=== PATIENT | male | born 1965 | race Caucasian/White ===

== ENCOUNTER 2016-10-30 15:36 | Outpatient (CLI) | payer MEDICAID ==
[2016-10-30] MEDS ORDERED: IOPAMIDOL-300 100 ML VIAL IVP ONE (17:30)
[2016-10-30] MEDS ORDERED: IOPAMIDOL-300 50 ML VIAL PO ONE (17:30)
== END 2016-10-30 15:37 | disposition home or self-care (01) ==
DX: K22.8 Other specified diseases of esophagus (principal); R63.4 Abnormal weight loss
CPT/HCPCS: 74177; Q9967

== ENCOUNTER 2016-12-02 09:36 | Day surgery (SDC) | payer MEDICAID ==
[2016-12-02] MEDS ORDERED: LACTATED RINGERS 1,000 ML IV ONE ×2 (09:54→11:30)
[2016-12-02] MEDS ORDERED: MIDAZOLAM 2 MG/2 ML VIAL IVP ONE (11:10)
[2016-12-02] MEDS ORDERED: fentaNYL 100 MCG/2 ML VIAL IVP ONE (11:10)
[2016-12-02] MEDS ORDERED: BENZOCAINE/TETRACAINE/BUTAMBEN SPRAY 56 GM TOP ONE (11:13)
[2016-12-02] MEDS ORDERED: LIDO GARGLE 30 ML BOTTLE PO ONE (11:13)
[2016-12-02 13:06] VITALS: BP 97/69
== END 2016-12-02 09:37 | disposition home or self-care (01) ==
LOC: SDS 09:36
PROVIDERS: ATTEND Surgery
PROC: 0D748ZZ Dilation of Esophagogastric Junction, Via Natural or Artificial Opening Endoscopic (ICD-10-PCS; 2016-12-02)
PROC: 0DB48ZX Excision of Esophagogastric Junction, Via Natural or Artificial Opening Endoscopic, Diagnostic (ICD-10-PCS; principal; 2016-12-02 10:45)
DX: R93.5 Abnormal findings on diagnostic imaging of other abdominal regions, including retroperitoneum (principal); K22.2 Esophageal obstruction; T18.128A Food in esophagus causing other injury, initial encounter; R13.10 Dysphagia, unspecified
CPT/HCPCS: 43239; 43249; 87081; A9270; J7120; 88305

== ENCOUNTER 2017-01-27 16:13 | Emergency (ER) | payer MEDICAID, OTHER ==
[2017-01-27] MEDS ORDERED: SODIUM CHLORIDE 0.9% 1,000 ML IV ONE ×2 (20:27→21:34)
[2017-01-27 20:55] LABS: BASOPHILS # (AUTO) 0.1 10^3/uL (0.0-0.1); BASOPHILS % (AUTO) 1.9 %; EOSINOPHILS # (AUTO) 0.3 10^3/uL (0.0-0.7); EOSINOPHILS % (AUTO) 3.5 %; HCT - HEMATOCRIT 40.3 % (42.0-52.0); HGB - HEMOGLOBIN 13.5 g/dL (14.0-18.0); LYMPHOCYTES # (AUTO) 2.6 10^3/uL (1.5-3.5); LYMPHOCYTES % (AUTO) 36.8 %; MEAN CORPUSCULAR HEMOGLOBIN 30.2 pg (27.0-31.0); MEAN CORPUSCULAR HGB CONC 33.5 g/dL (32.0-36.0); MEAN CORPUSCULAR VOLUME 90.2 fL (80.0-94.0); MEAN PLATELET VOLUME 7.7 fL (7.4-11.4); MONOCYTES # (AUTO) 0.6 10^3/uL (0.0-1.0); MONOCYTES % (AUTO) 7.8 %; NEUTROPHILS # (AUTO) 3.6 10^3/uL (1.5-6.6); NUCLEATED RED BLOOD CELLS AUTO 0.1 /100WBC; RED BLOOD COUNT 4.47 10^6/uL (4.70-6.10); RED CELL DISTRIBUTION WIDTH 12.9 % (12.0-15.0); UNCORRECTED WHITE BLOOD COUNT 7.2 x10^3/uL; WHITE BLOOD COUNT 7.2 x10^3/uL (4.8-10.8)
[2017-01-27 21:08] LABS: ALBUMIN/GLOBULIN RATIO 1.3 (1.0-2.2); BILIRUBIN,TOTAL 0.8 mg/dL (0.2-1.0); CALCIUM 9.1 mg/dL (8.5-10.3); CREATININE 0.7 mg/dL (0.6-1.2); POTASSIUM 3.2 mmol/L (3.5-5.0); TOTAL PROTEIN 7.2 g/dL (6.7-8.2)
--- NOTE | 2017-01-27 21:23 | ED Physician Documentation ---
History of Present Illness - Stated complaint Stated Complaint: LIGHT HEADED - Chief complaint Chief Complaint: Abd Pain - Additonal information Additional information: Patient is a 52-year-old man who presents with a complaint of nausea and weight loss for 1-1/2 yearsEvery time this patient eats he develops a full sensation in the upper epigastric area and then vomits. This is been going on for a long time more recently he has had MRI and EGD both of which were negative. He also describes having done what sounds like a study for achalasia which was also negative. He is under the care of a surgeon and is going to see a mold stacker in [place]. He feels like he is dehydrated and is hoping to get IV fluids tonight. He does not have any pain. There is no constipation diarrhea or lower urinary symptoms Review of systems: For pertinent positive and negatives in the review of systems please see history of present illness. Otherwise all other systems have been reviewed and are negative. Dragon disclaimer: Parts of this medical record were created using voice recognition technology. Because of the inherent limitations of this system occasional same sounding word substitutions do occur and persist despite proofreading. Please read the document for context. Review of Systems Ten Systems: 10 systems reviewed and negative Constitutional: denies: Fever, Chills, Myalgias Eyes: denies: Loss of vision Cardiac: denies: Chest pain / pressure, Palpitations Respiratory: denies: Dyspnea GI: reports: Nausea, Vomiting. denies: Abdominal Pain, Abdominal Swelling : denies: Dysuria, Frequency, Hesitancy, Unable to Void Skin: denies: Rash Musculoskeletal: denies: Neck pain, Back pain Neurologic: denies: Generalized weakness Endocrine: denies: Polydypsia, Polyuria, Polyphagia PD PAST MEDICAL HISTORY - Past Medical History Past Medical History: Yes Cardiovascular: None Respiratory: None Neuro: None Endocrine/Autoimmune: None GI: Other : None HEENT: None Psych: None Musculoskeletal: Other Other Past Medical History: trouble swallowing. chronic vomiting - Past Surgical History Past Surgical History: Yes General: Appendectomy, EGD Ortho: Other - Present Medications Home Medications: Ambulatory Orders Medication Instructions Recorded Confirmed Multivitamin [Multivitamins] 1 each PO DAILY 12/18/15 01/27/17 [place]-3 Fatty Acids [Fish Oil] 300 mg PO TID 12/18/15 01/27/17 - Allergies Allergies/Adverse Reactions: Allergies Allergy/AdvReac Type Severity Reaction Status Date / Time No Known Drug Allergies Allergy Verified 09/20/15 13:35 - Social History Does the pt smoke?: Yes Smoking Status: Current some day smoker Does the pt drink ETOH?: Yes Does the pt have substance abuse?: No Results - Vitals Vitals: Vital Signs - 24 hr 01/27/17 01/27/17 01/28/17 16:29 22:20 00:19 Temperature 36.8 C 36.4 C L Heart Rate 83 61 58 L Respiratory 18 16 16 Rate Blood Pressure 116/74 101/59 L 96/58 L O2 Saturation 97 98 98 Oxygen O2 Source Room air - Labs Labs: Laboratory Tests 01/27/17 01/27/17 01/27/17 20:45 20:45 21:18 WBC 7.2 RBC 4.47 L Hgb 13.5 L Hct 40.3 L MCV 90.2 MCH 30.2 MCHC 33.5 RDW 12.9 Plt Count 211 MPV 7.7 Neut # 3.6 Lymph # 2.6 Person # 0.6 Eos # 0.3 Baso # 0.1 Absolute Nucleated RBC 0.01 Nucleated RBCs 0.1 Sodium 139 Potassium 3.2 L Chloride 106 Carbon Dioxide 26 Anion Gap 7.0 BUN 36 H Creatinine 0.7 Estimated GFR (MDRD) 118 Glucose 180 H Calcium 9.1 Total Bilirubin 0.8 AST 22 ALT 18 Alkaline Phosphatase 61 Total Protein 7.2 Albumin 4.1 Globulin 3.1 Albumin/Globulin Ratio 1.3 Lipase 21 L Urine Color YELLOW Urine Clarity CLEAR Urine pH 6.0 Ur Specific [place] 1.025 Urine Protein NEGATIVE Urine Glucose (UA) NEGATIVE Urine Ketones TRACE Urine Occult Blood NEGATIVE Urine Nitrite NEGATIVE Urine Bilirubin NEGATIVE Urine Urobilinogen 0.2 (NORMAL) Ur Leukocyte Esterase NEGATIVE Ur Microscopic Review NOT INDICATED Urine Culture Comments NOT INDICATED PD MEDICAL DECISION MAKING - ED course ED course: Patient is a pleasant 52-year-old man who has had a long history of nausea and vomiting for a year and a half. He has had multiple studies done including a MRI of the abdomen and pelvis and a EGD done within a couple weeks ago. Apparently they have been unable to determine what the cause of these episodes are from. He says that when he eats or drinks he develops a full sensation in the upper abdomen and then has the need to vomit. He denies any pain, fever, any other abdominal complaints or diarrhea. He did say that he had a test for achalasia and he believes that this test was negative as well. On examination He is a little thin but does not look onto her emaciated. He does not look toxic or ill. His abdominal examination is completely unremarkable. He was given 2 L of normal saline here and labs are checked the only abnormality is slight elevation of the BUN at 30. He does have follow-up appointment with both his primary care physician, his surgeon and also follow-up evaluation with the mold stacker in [place]. At this point in time were unable to determine the cause of his ongoing nausea and vomiting episodes but he was temporized by hydration tonight and he is thankful for this. I asked him to watch his symptoms closely return if he again gets dehydrated otherwise follow- up with his physicians as previously planned. Disposition: To home Clinical impression: 1. Recurrent nausea and vomiting, etiology unknown 2. Mild dehydration with elevated BUN to creatinine ratio Departure - Departure Disposition: 01 Home, Self Care Clinical Impression: Dehydration Condition: Good Instructions: ED Dehydration Follow-Up: Deborah Purcell ARNP [Primary Care Provider] -
[2017-01-27 21:26] LABS: BILIRUBIN,URINE NEGATIVE (NEGATIVE)
[2017-01-27 21:32] LABS: UA CHARGE (STRIP ONLY) YES; UR CULTURE IF IND NOT INDICATED
[2017-01-28 00:20] VITALS: BP 96/58
== END 2017-01-28 00:37 | disposition home or self-care (01) ==
LOC: ED 16:13
DX: R11.2 Nausea with vomiting, unspecified (principal); E86.0 Dehydration; F17.200 Nicotine dependence, unspecified, uncomplicated
CPT/HCPCS: 36415; 80053; 81001; 81003; 83690; 85025; 87086; 96360; 96361; 99283

== ENCOUNTER 2017-09-09 09:01 | Outpatient (CLI) | payer MEDICAID, OTHER ==
[2017-09-09 13:28] LABS: BASOPHILS # (AUTO) 0.1 10^3/uL (0.0-0.1); BASOPHILS % (AUTO) 2.1 %; EOSINOPHILS # (AUTO) 0.4 10^3/uL (0.0-0.7); EOSINOPHILS % (AUTO) 7.1 %; HGB - HEMOGLOBIN 12.8 g/dL (14.0-18.0); LYMPHOCYTES # (AUTO) 1.6 10^3/uL (1.5-3.5); LYMPHOCYTES % (AUTO) 27.4 %; MEAN CORPUSCULAR HGB CONC 33.6 g/dL (32.0-36.0); MEAN CORPUSCULAR VOLUME 89.5 fL (80.0-94.0); MEAN PLATELET VOLUME 9.2 fL (7.4-11.4); MONOCYTES # (AUTO) 0.7 10^3/uL (0.0-1.0); MONOCYTES % (AUTO) 11.9 %; NEUTROPHILS % (AUTO) 51.5 %; PLT - PLATELET COUNT 217 10^3/uL (130-450); RED BLOOD COUNT 4.25 10^6/uL (4.70-6.10); RED CELL DISTRIBUTION WIDTH 13.4 % (12.0-15.0); WHITE BLOOD COUNT 5.9 x10^3/uL (4.8-10.8)
[2017-09-09 13:52] LABS: ALBUMIN 3.9 g/dL (3.2-5.5); ALBUMIN/GLOBULIN RATIO 1.1 (1.0-2.2); ALKALINE PHOSPHATASE 61 IU/L (42-121); ALT ALANINE AMINOTRANSFERASE 15 IU/L (10-60); AST ASPARTATE AMINOTRANSFERASE 20 IU/L (10-42); BILIRUBIN,TOTAL 0.4 mg/dL (0.2-1.0); BUN - BLOOD UREA NITROGEN 19 mg/dL (6-20); CALCIUM 9.5 mg/dL (8.5-10.3); CARBON DIOXIDE - CO2 30 mmol/L (21-32); CHLORIDE 101 mmol/L (101-111); CHOL/HDL RATIO 3.9 (<5.0); CHOLESTEROL 169 mg/dL; CREATININE 0.5 mg/dL (0.6-1.2); GFR - MDRD 175 (>89); GLUCOSE 73 mg/dL (70-100); HDL CHOLESTEROL 43 mg/dL; LDL CHOLESTEROL,CALCULATED 97 mg/dL; LDL/HDL RATIO 2.3 (<3.6); SODIUM 138 mmol/L (135-145); TOTAL PROTEIN 7.3 g/dL (6.7-8.2); VLDL CHOLESTEROL 29 mg/dL
== END 2017-09-09 09:02 ==
LOC: LAB.N 09:01
PROVIDERS: ATTEND Nurse Practitioner Gerontology
DX: E78.5 Hyperlipidemia, unspecified (principal); R73.9 Hyperglycemia, unspecified
CPT/HCPCS: 80053; 80061; 83721; 84443; 85025

== ENCOUNTER 2017-10-11 10:13 | Emergency (ER) | payer MEDICAID ==
--- NOTE | 2017-10-11 12:42 | ED Physician Documentation ---
PD HPI ABD PAIN - Stated complaint Stated Complaint: FEEDING TUBE PX - Chief complaint Chief Complaint: Abd Pain - History obtained from History obtained from: Patient - History of Present Illness Timing - onset: Other (52 yo male with G tube for esophageal dysmotility. He has a low profile G-tube with redness and pain for 10 days. Was placed 1 month ago at [facility]. He does TID bolus feedings. He also takes PO food ( minimal). He describes that his Gtube will get sucked in and then pop out with pain.) Review of Systems Constitutional: denies: Fever, Chills Cardiac: reports: Reviewed and negative Respiratory: reports: Reviewed and negative GI: reports: Nausea, Vomiting PD PAST MEDICAL HISTORY - Past Medical History Cardiovascular: None Respiratory: None Neuro: Other Endocrine/Autoimmune: None GI: Other : None HEENT: None Psych: None Musculoskeletal: Other Derm: None Other Past Medical History: Feels he has short term memory loss. His esophagus dosent work - Past Surgical History Past Surgical History: Yes General: Appendectomy, EGD Ortho: Other - Present Medications Home Medications: Ambulatory Orders Medication Instructions Recorded Confirmed Multivitamin [Multivitamins] 1 each PO DAILY 12/18/15 01/27/17 [place]-3 Fatty Acids [Fish Oil] 300 mg PO TID 12/18/15 01/27/17 - Allergies Allergies/Adverse Reactions: Allergies Allergy/AdvReac Type Severity Reaction Status Date / Time No Known Drug Allergies Allergy Verified 10/11/17 10:35 - Social History Does the pt smoke?: No Smoking Status: Former smoker Does the pt drink ETOH?: No Does the pt have substance abuse?: No - Immunizations Immunizations are current?: Yes - POLST Patient has POLST: No PD ED PE NORMAL - Vitals Vital signs reviewed: Yes - General General: Alert and oriented X 3, No acute distress - Abdomen Abdomen: Normal bowel sounds, Soft, Other (Abdomen is nontender with a well- healed appendectomy scar, he has a low-profile G-tube in the left upper quadrant that is quite flush with the skin and in fact inverts the skin a little bit. There is no sign of active infection or skin breakdown.) - Neuro Neuro: Alert and oriented X 3, Normal speech - Psych Psych: Normal affect Results - Vitals Vitals: Vital Signs - 24 hr 10/11/17 10/11/17 10:31 11:25 Temperature 37.2 C Heart Rate 89 67 Respiratory 16 16 Rate Blood Pressure 128/104 H 98/55 L O2 Saturation 97 94 Oxygen O2 Source Room air PD MEDICAL DECISION MAKING - ED course ED course: 52-year-old gentleman with esophageal dysmotility with a low-profile G-tube in place that is bothering him because of its short length and he has symptoms of it getting pulled in with gastric peristalsis and is bothering his skin because of it. After discussion of options, he opted for replacement of this with a normal G-tube which was done at the bedside without difficulty and gastric contents were returned. Departure - Departure Disposition: 01 Home, Self Care Clinical Impression: Pain from gastrostomy tube Condition: Good Record reviewed to determine appropriate education?: Yes Instructions: ED G Tube Replacement Comments: CALL YOUR SURGEON ON FRIDAY AND LET HIM KNOW THAT WE REPLACED YOUR GTUBE WITH A NORMAL VERSION AND RETURN FOR FURTHER PROBLEMS.
[2017-10-11 13:22] VITALS: BP 115/77
== END 2017-10-11 13:18 | disposition home or self-care (01) ==
LOC: ED 10:13
DX: K94.29 Other complications of gastrostomy (principal); R52 Pain, unspecified; Z87.891 Personal history of nicotine dependence
CPT/HCPCS: 43760; 99282; 99283

== ENCOUNTER 2018-01-21 06:00 | Emergency (ER) | payer MEDICAID ==
--- NOTE | 2018-01-21 07:14 | XRAY Report ---
Procedure Date: 01/21/2018 Accession Number: [id number] / [id number] Procedure: XR - Hip w/Pelvis 2-3V RT CPT Code: FULL RESULT: EXAM: RIGHT HIP AND PELVIS RADIOGRAPHY EXAM DATE: 01/21/2018 07:04 AM. HISTORY: Hip pain. COMPARISONS: None. TECHNIQUE: 1 view of the pelvis and 1 view of the hip. FINDINGS: Bones: No acute fracture. Joints: No dislocation. Mild degenerative change. Soft Tissues: Suture material projecting over the upper right pelvis. IMPRESSION: No acute osseous abnormality. RADIA
--- NOTE | 2018-01-21 07:20 | ED Physician Documentation ---
PD HPI LOWER EXT INJURY - Stated complaint Stated Complaint: RT UPPER LEG PAIN - Chief complaint Chief Complaint: Ext Problem - History obtained from History obtained from: Patient - History of Present Illness PD HPI LOW EXT INJURY LOCATION: Right, Hip, Thigh Type of injury: Fall Where injury occurred: Home Timing - onset: How many days ago (2) Timing - duration: Days (2) Timing - details: Abrupt onset, Still present Improved by: Rest, Immobilization Worsened by: Moving, Palpating Associated symptoms: No: Weakness, Numbness, Tingling, Swelling Contributing factors: Prior ortho surgery. No: Anticoagulated Similar symptoms before: Has not had sx before Recently seen: Clinic - Additional information Additional information: 52-year-old male with history of esophageal dysmotility was walking on his deck 2 nights ago when he fell through the deck straddling to [place] and landing against the lateral aspect of his right upper thigh. He has pain in that area that is persisted for the past 2 days especially if he tries to flex his hip. He has been into see his doctor about pain in his right hip that started about 3 weeks ago unrelated to this injury. Review of Systems Constitutional: denies: Fever Eyes: denies: Decreased vision Ears: denies: Ear pain Nose: denies: Congestion Throat: denies: Sore throat Cardiac: denies: Chest pain / pressure, Palpitations Respiratory: denies: Dyspnea, Cough GI: reports: Vomiting (regularly vomits after feeding through G-tube with bile) . denies: Abdominal Pain : denies: Dysuria Skin: denies: Rash Musculoskeletal: reports: Extremity pain, Joint pain. denies: Neck pain, Back pain, Extremity swelling, Joint swelling Neurologic: denies: Generalized weakness, Focal weakness, Numbness PD PAST MEDICAL HISTORY - Past Medical History Cardiovascular: None Respiratory: None Endocrine/Autoimmune: None GI: Other : None HEENT: None Psych: None Musculoskeletal: Other Derm: None - Past Surgical History Past Surgical History: Yes General: Appendectomy, EGD Ortho: Other - Present Medications Home Medications: Ambulatory Orders Medication Instructions Recorded Confirmed Multivitamin [Multivitamins] 1 each PO DAILY 12/18/15 01/27/17 [place]-3 Fatty Acids [Fish Oil] 300 mg PO TID 12/18/15 01/27/17 Oxycodone HCl 5 ml PO Q6H PRN #50 ml 10/11/17 - Allergies Allergies/Adverse Reactions: Allergies Allergy/AdvReac Type Severity Reaction Status Date / Time No Known Drug Allergies Allergy Verified 01/21/18 06:12 - Social History Does the pt smoke?: No Smoking Status: Former smoker Does the pt drink ETOH?: No Does the pt have substance abuse?: No - Immunizations Immunizations are current?: Yes - POLST Patient has POLST: No PD ED PE NORMAL - Vitals Vital signs reviewed: Yes (normal ) - General General: Alert and oriented X 3, No acute distress, Well developed/nourished - HEENT HEENT: Atraumatic, PERRL, EOMI - Respiratory Respiratory: No respiratory distress - Derm Derm: Normal color, Warm and dry, No rash - Extremities Extremities: No deformity, No edema, Other (There is point tenderness to the mid thigh laterally where the patient fell. The knee is not involved. There is no specific tenderness to the trochanter. ) - Neuro Neuro: Alert and oriented X 3, hand tool filer 2-12 intact, No motor deficit, No sensory deficit, Normal speech Eye Opening: Spontaneous Motor: Obeys Commands Verbal: Oriented GCS Score: 15 - Psych Psych: Normal mood, Normal affect Results - Vitals Vitals: Vital Signs - 24 hr 01/21/18 06:09 Temperature 36.6 C Heart Rate 76 Respiratory 17 Rate Blood Pressure 100/74 O2 Saturation 98 Oxygen O2 Source Room air - Rads (name of study) right hip Radiology: Prelim report reviewed (Impression: No acute osseous abnormality. ) , EMP read indepedently (hardware from prior fracture repair is present in the lower portion of the film), See rad report PD MEDICAL DECISION MAKING - ED course Complexity details: reviewed old records, reviewed results, re-evaluated patient , considered differential, d/w patient ED course: 52-year-old male with prior orthopedic injury to the right mid femur has fallen through a deck striking the side of his right femur over the area of his prior injury against a [place]. He has pain specifically to that area and specifically if he tries to flex his hip. He is able to walk and bear weight without much specific pain. X-rays demonstrate no evidence of fracture they do them demonstrate the presence of prior fracture repair over the area the patient is experiencing his pain. He is not interested in narcotic pain reliever as he does all the driving in his family. He did get extra strength Tylenol from his physician for using his G-tube. - Sepsis Event Vital Signs: Vital Signs - 24 hr 01/21/18 06:09 Temperature 36.6 C Heart Rate 76 Respiratory 17 Rate Blood Pressure 100/74 O2 Saturation 98 Oxygen O2 Source Room air Departure - Departure Disposition: 01 Home, Self Care Clinical Impression: Contusion of right thigh Qualifiers: Encounter type: initial encounter Qualified Code(s): S70.11XA - Contusion of right thigh, initial encounter Condition: Stable Instructions: ED Contusion Lower Ext Follow-Up: Deborah Purcell ARNP [Primary Care Provider] -
[2018-01-21] MEDS ORDERED: KETOROLAC 60 MG/2 ML VIAL IM STA (07:31)
--- NOTE | 2018-01-21 08:27 | XRAY Report ---
Procedure Date: 01/21/2018 Accession Number: [id number] / [id number] Procedure: XR - Femur 2V RT CPT Code: FULL RESULT: EXAM: RIGHT FEMUR RADIOGRAPHY EXAM DATE: 01/21/2018 08:06 AM. CLINICAL HISTORY: Mid thigh contusion/prior fx. COMPARISON: None. TECHNIQUE: 2 views. FINDINGS: Bones: No acute fracture. Healed distal third right femur shaft fracture. Portions of fixation screws are seen traversing the distal right femur at the site of fracture. Mild apical angulation medially and posteriorly. No bony erosions. Joints: Normal alignment. No dislocation. Degenerative changes of the right hip joint and right knee. Soft Tissues: Soft tissue edema. IMPRESSION: 1. No acute osseous abnormalities. 2. Healed distal third right femur fracture. RADIA
[2018-01-21 08:41] VITALS: BP 101/68
== END 2018-01-21 08:41 | disposition home or self-care (01) ==
LOC: ED 06:00
DX: S70.11XA Contusion of right thigh, initial encounter (principal); W19.XXXA Unspecified fall, initial encounter; Y93.01 Activity, walking, marching and hiking; Y92.007 Garden or yard of unspecified non-institutional (private) residence as the place of occurrence of the external cause; Z87.891 Personal history of nicotine dependence; Z93.1 Gastrostomy status
CPT/HCPCS: 96372; 99283

== ENCOUNTER 2018-02-04 02:13 | Inpatient (IN) | payer MEDICAID ==
[2018-02-04] MEDS ORDERED: SODIUM CHLORIDE 0.9% 1,000 ML IV ONE ×4 (02:38→12:28)
[2018-02-04 02:46] LABS: BASOPHILS # (AUTO) 0.1 10^3/uL (0.0-0.1); BASOPHILS % (AUTO) 0.8 %; EOSINOPHILS # (AUTO) 0.2 10^3/uL (0.0-0.7); EOSINOPHILS % (AUTO) 2.3 %; LYMPHOCYTES # (AUTO) 2.1 10^3/uL (1.5-3.5); LYMPHOCYTES % (AUTO) 19.8 %; MEAN CORPUSCULAR HEMOGLOBIN 31.5 pg (27.0-31.0); MEAN CORPUSCULAR HGB CONC 33.9 g/dL (32.0-36.0); MEAN CORPUSCULAR VOLUME 93.1 fL (80.0-94.0); MEAN PLATELET VOLUME 8.2 fL (7.4-11.4); MONOCYTES # (AUTO) 0.7 10^3/uL (0.0-1.0); MONOCYTES % (AUTO) 6.7 %; NEUTROPHILS # (AUTO) 7.4 10^3/uL (1.5-6.6); NEUTROPHILS % (AUTO) 70.4 %; PLT - PLATELET COUNT 263 10^3/uL (130-450); RED BLOOD COUNT 3.18 10^6/uL (4.70-6.10); RED CELL DISTRIBUTION WIDTH 13.4 % (12.0-15.0); WHITE BLOOD COUNT 10.5 x10^3/uL (4.8-10.8)
--- NOTE | 2018-02-04 02:46 | ED Physician Documentation ---
PD HPI GI BLEED - Stated complaint Stated Complaint: RECTAL BLEEDING - Chief complaint Chief Complaint: Abd Pain - History obtained from History obtained from: Patient - History of Present Illness Timing - onset: How many days ago (3) Timing - duration: Days (3) Timing - details: Gradual onset, Still present Associated symptoms: BRBPR, Black/tarry stool, Abdominal pain Contributing factors: NSAID use Similar symptoms before: Has not had sx before Recently seen: Emergency Dept - Additional information Additional information: 53-year-old male with a history of esophageal sphincter dysfunction has a G- tube in place over the past year and over the past 3 days he began to not feel well and then he noted some black discharge around his G-tube. He did take some ibuprofen for the discomfort he was having and early this morning he did not feel well felt lightheaded and dizzy as he has intermittently for the past several days and he got up to go to the bathroom and had a syncopal episode. He was able to get himself into the bathroom whereupon he had plugs of stool surrounded by blood that was old followed by clots and old blood. He did have some bright red blood as well. Review of Systems Constitutional: denies: Fever Eyes: denies: Decreased vision Ears: denies: Ear pain Nose: denies: Rhinorrhea / runny nose, Congestion Throat: denies: Sore throat Cardiac: denies: Chest pain / pressure, Palpitations Respiratory: denies: Dyspnea, Cough GI: reports: Abdominal Pain, Nausea, Bloody / black stool : denies: Dysuria, Frequency Skin: denies: Rash Musculoskeletal: denies: Neck pain, Back pain, Extremity pain Neurologic: reports: Generalized weakness, Near syncope, Syncope. denies: Focal weakness, Numbness PD PAST MEDICAL HISTORY - Past Medical History Past Medical History: Yes Cardiovascular: None Respiratory: None Endocrine/Autoimmune: None GI: Other : None HEENT: None Psych: None Musculoskeletal: Other Derm: None Other Past Medical History: "Esophagus not working" - Past Surgical History Past Surgical History: Yes General: Appendectomy, EGD Ortho: Other - Present Medications Home Medications: Ambulatory Orders Medication Instructions Recorded Confirmed Ferrous Sulfate 5 ml PEG DAILY 02/04/18 02/04/18 [place] 16 oz PEG DAILY 02/04/18 - Allergies Allergies/Adverse Reactions: Allergies Allergy/AdvReac Type Severity Reaction Status Date / Time No Known Drug Allergies Allergy Verified 02/04/18 02:35 - Social History Does the pt smoke?: No Smoking Status: Never smoker Does the pt drink ETOH?: No Does the pt have substance abuse?: No - Immunizations Immunizations are current?: Yes - POLST Patient has POLST: No PD ED PE NORMAL - Vitals Vital signs reviewed: Yes (hypotensive ) - General General: Alert and oriented X 3, No acute distress, Well developed/nourished - HEENT HEENT: Atraumatic, PERRL, EOMI - Neck Neck: Supple, no meningeal sign - Cardiac Cardiac: RRR, No murmur - Respiratory Respiratory: No respiratory distress, Clear bilaterally - Abdomen Abdomen: Soft, Non tender, Other (There is a G-tube in place and no drainage at this time. ) - Back Back: No CVA TTP, No spinal TTP - Derm Derm: Normal color, Warm and dry, No rash - Extremities Extremities: No deformity, No edema - Neuro Neuro: Alert and oriented X 3, die holder 2-12 intact, No motor deficit, No sensory deficit, Normal speech Eye Opening: Spontaneous Motor: Obeys Commands Verbal: Oriented GCS Score: 15 - Psych Psych: Normal mood, Normal affect Results - Vitals Vitals: Vital Signs - 24 hr 02/04/18 02/04/18 02/04/18 02:21 02:29 02:59 Temperature 35.9 C L Heart Rate 65 67 68 Respiratory 18 16 21 Rate Blood Pressure 88/52 L 102/62 92/61 O2 Saturation 100 97 100 02/04/18 02/04/18 03:23 03:43 Temperature 36.0 C L Heart Rate 66 74 Respiratory 19 21 Rate Blood Pressure 93/80 103/77 O2 Saturation 100 99 Oxygen O2 Source Room air - Labs Labs: Laboratory Tests 02/04/18 02/04/18 02/04/18 02:20 02:20 02:20 WBC 10.5 RBC 3.18 L Hgb 10.0 L Hct 29.6 L MCV 93.1 MCH 31.5 H MCHC 33.9 RDW 13.4 Plt Count 263 MPV 8.2 Neut # (Auto) 7.4 H Lymph # (Auto) 2.1 [place] # (Auto) 0.7 Eos # (Auto) 0.2 Baso # (Auto) 0.1 Absolute Nucleated RBC 0.00 Nucleated RBC % 0.0 PT INR APTT Sodium 135 Potassium 4.4 Chloride 102 Carbon Dioxide 27 Anion Gap 6.0 BUN 38 H Creatinine 0.5 L Estimated GFR (MDRD) 174 Glucose 153 H Calcium 8.3 L Total Bilirubin 0.3 AST 18 ALT 11 Alkaline Phosphatase 56 Total Protein 6.2 L Albumin 2.9 L Globulin 3.3 Albumin/Globulin Ratio 0.9 L Lipase 27 Blood Type O POSITIVE Blood Type Recheck Antibody Screen NEGATIVE Crossmatch IS Only See Detail 02/04/18 02/04/18 02:20 02:52 WBC RBC Hgb Hct MCV MCH MCHC RDW Plt Count MPV Neut # (Auto) Lymph # (Auto) [place] # (Auto) Eos # (Auto) Baso # (Auto) Absolute Nucleated RBC Nucleated RBC % PT 13.9 H INR 1.2 APTT 25.5 Sodium Potassium Chloride Carbon Dioxide Anion Gap BUN Creatinine Estimated GFR (MDRD) Glucose Calcium Total Bilirubin AST ALT Alkaline Phosphatase Total Protein Albumin Globulin Albumin/Globulin Ratio Lipase Blood Type Blood Type Recheck O POSITIVE Antibody Screen Crossmatch IS Only PD MEDICAL DECISION MAKING - ED course Complexity details: reviewed old records, reviewed results, re-evaluated patient , considered differential, d/w patient, d/w family ED course: 53-year-old male with acute GI bleeding he is hypotensive and syncopal and has had approximately 10 point drop in his hematocrit. He is still above the transfusion threshold and intravenous saline is begun as well as intravenous Protonix. He likely has upper gi bleeding secondary to his use of ibuprofen and he is feeling much improved after administration of protonix and IV saline. He will need admission for serial hematocrit and cessation of bleeding. - Sepsis Event Vital Signs: Vital Signs - 24 hr 02/04/18 02/04/18 02/04/18 02:21 02:29 02:59 Temperature 35.9 C L Heart Rate 65 67 68 Respiratory 18 16 21 Rate Blood Pressure 88/52 L 102/62 92/61 O2 Saturation 100 97 100 02/04/18 02/04/18 03:23 03:43 Temperature 36.0 C L Heart Rate 66 74 Respiratory 19 21 Rate Blood Pressure 93/80 103/77 O2 Saturation 100 99 Oxygen O2 Source Room air Departure - Departure Disposition: ED Place in Observation Clinical Impression: GI bleeding Qualifiers: GI bleed type/associated pathology: melena Qualified Code(s): K92.1 - Melena
[2018-02-04 03:03] LABS: ALBUMIN 2.9 g/dL (3.2-5.5); ALBUMIN/GLOBULIN RATIO 0.9 (1.0-2.2); BILIRUBIN,TOTAL 0.3 mg/dL (0.2-1.0); CALCIUM 8.3 mg/dL (8.5-10.3); CREATININE 0.5 mg/dL (0.6-1.2); TOTAL PROTEIN 6.2 g/dL (6.7-8.2)
[2018-02-04] MEDS ORDERED: PANTOPRAZOLE 40 MG VIAL IVP STA (03:05)
[2018-02-04 03:22] LABS: INR 1.2 (0.8-1.2); PT - PROTHROMBIN TIME 13.9 secs (9.9-12.6)
--- NOTE | 2018-02-04 03:48 | HISTORY & PHYSICAL EXAMINATION ---
Chief Complaint - Chief Complaint Chief Complaint: Black and bloody stools History of Present Illness - Admitted From Admitted From:: Emergency Department - History Obtained From Records Reviewed: Yes History obtained from: Patient Exam Limitations: None - History of Present Illness HPI Comment/Other: Patient is a 53-year-old gentleman with an unfortunate past medical history significant for esophageal dysmotility which has left him unable to swallow food or water status post PEG tube placement through which she receives feeding , he presents to the emergency department today with a chief complaint of black and bloody stools. The patient states that he was in his normal state of health until about 3 days ago when he states he began feeling unwell. He states that he was feeling dizzy, had a stomach ache and had muscle cramps. The patient also states that he has felt nauseous for the last 2 days. The patient states that when he feels this way he usually takes ibuprofen or Tylenol which seems to help. He states that his he decided to take ibuprofen and took 400 mg for 4 doses. He states that the following day his abdominal cramping was worsening and he had increasing gas throughout the day. He states that when he woke up this morning he noticed that his PEG tube dressing was saturated with what appeared to be dark blood like material. He states that throughout the day he felt persistent abdominal discomfort. He states that he went to bed and then woke up early this morning and had to go to the bathroom. He states that on his way to the bathroom he felt very dizzy and collapsed to the floor. He states that he did not lose consciousness but was very weak and dizzy and could not get up from the floor. He states that while he was on the floor he felt an urge to defecate. He states that he had a small amount of stool that came out onto the bathroom floor. He states that the stool was dark and covered with blood. He states that he was able to make his way to the toilet and sat on the toilet. He states at that point he had a large bowel movement which was bloody with dark and bright red blood. He states that this was followed by blood clots. He states that he continued to feel very lightheaded and finally his came to the bathroom to see what was going on and he told her to call 911. Since arriving to the emergency department the patient has been nauseated and had a bout of emesis with dark stomach contents. Regarding the patient's dysphasia the patient states that his symptoms started about a year ago when he was admitted to [facility] for dehydration and malnutrition. At that time the patient was diagnosed with achalasia as he was having difficulty swallowing and had a G-tube placed at that time. Later he states that he saw gastroenterology at [facility]. He states that he underwent a GI manometry testing and was found to have esophageal dysmotility to the point where he had complete paralysis of most of his esophagus. The patient states that he has continued on PEG tube feedings for the last year. He is scheduled to see Dr. Trenton Arevalo for a EGD with biopsies in the coming month. The patient denies any headache, blurred vision, runny nose, sore throat, nasal congestion, chest pain, shortness of air, palpitations, orthopnea, PND, increased lower extremity swelling, cough, fevers, chills, urinary urgency, urinary frequency, dysuria, polyuria, polydipsia, joint swelling, joint pain, back pain, neck stiffness, rash, hair loss, recent unintentional weight loss, or any focal neurologic deficits. On presentation to the emergency department the patient was afebrile, hypotensive with blood pressure 88/52 but not in any respiratory distress. The patient was immediate given a IV fluid bolus. The patient's blood pressure did improve but continued to be in the low 100s. The patient did not have any further black or bloody bowel movements in the emergency department however did have some emesis which appeared to be dark. The patient again dropped his blood pressure down to 85/53 in the emergency department and was started on another fluid bolus. The patient's hemoglobin was found to be 10.0 down from 12.8 just 5 months ago. The patient also had an elevated BUN and hyperglycemia. The patient was placed in observation for a GI bleed and will be monitored closely given his borderline hypotension. History - Past Medical History Cardiovascular: reports: None Respiratory: reports: None Endocrine/Autoimmune: reports: None GI: reports: Other (Esophageal dysmotility status post PEG tube) : reports: None HEENT: reports: None Psych: reports: None Musculoskeletal: reports: Other Derm: reports: None MRSA Hx?: No Other Past Medical History: "Esophagus not working" - Past Surgical History General: reports: Appendectomy, EGD Ortho: reports: Other - Family & Social History Family History: Mother: CVA/TIA, Diabetes, Type 2, [place], Sister: Obesity Living arrangement: At home Living Situation: With spouse/s.o. Social History Notes: The patient lives in [place] with his . He and his have been for 34 years. The patient is originally from [place] but moved to [facility] at the age of 14 and met his at the age of 17 and they have been together ever since. The patient has 1 biological daughter who lives just down the street. The patient was a former smoker and smoked in his 30s, he was never a heavy smoker and quit many years ago. He states he does smoke cigars now and again. He denies any alcohol use or illicit drug use. - POLST Patient has POLST: No POLST Status: Full Code Meds/Allgy - Home Medications Home Medications: Ambulatory Orders Medication Instructions Recorded Confirmed Ferrous Sulfate 5 ml PEG DAILY 02/04/18 02/04/18 Jevity 16 oz PEG DAILY 02/04/18 - Allergies Allergies/Adverse Reactions: Allergies Allergy/AdvReac Type Severity Reaction Status Date / Time No Known Drug Allergies Allergy Verified 02/04/18 02:35 Review of Systems - Other Findings Other Findings: A comprehensive review of systems was performed the pertinent positives and negatives are stated above in the HPI and the remainder of the review of systems is negative. Exam - Vital Signs Reviewed Vital Signs: Yes Vital Signs: Vital Signs x48h Temp Pulse Resp BP Pulse Ox 02/04/18 03:43 36.0 C L 74 21 103/77 99 02/04/18 03:23 66 19 93/80 100 02/04/18 02:59 68 21 92/61 100 02/04/18 02:29 67 16 102/62 97 02/04/18 02:21 35.9 C L 65 18 88/52 L 100 - Physical Exam General Appearance: positive: Alert, Other (pale appearing, thin.) Eyes Bilateral: positive: Normal inspection, PERRL, EOMI, No lid inflammation, No scleral icterus, Other (Conjunctival pallor) ENT: positive: ENT inspection nml, Pharynx nml, Dry mucous membranes. negative : Purulent nasal drainage, Pharyngeal erythema, Oral lesions Neck: positive: Nml inspection, Thyroid nml, No JVD, Trachea midline. negative : Thyromegaly, Lymphadenopathy (R), Lymphadenopathy (L), Stiff neck, Carotid bruit, Tracheal deviation Respiratory: positive: Chest non-tender, No respiratory distress, Breath sounds nml. negative: Wheezes, Rales, Rhonchi Cardiovascular: positive: Regular rate & rhythm, No murmur, No gallop Peripheral Pulses: positive: 2+ Abdomen: positive: No organomegaly, No distention, Tenderness (Epirgatric), Abnml bowel sounds (hyperactive). negative: Guarding, Rebound, Hepatomegaly Rectal: positive: Stool - heme POS Back: positive: Nml inspection. negative: CVA tenderness (R), CVA tenderness (L ) Skin: positive: No rash, Warm, Dry, Pallor. negative: Cyanosis, Diaphoresis, Skin rash, Decubitus Extremities: positive: Non-tender, Full ROM, Nml appearance, No pedal edema Neurologic/Psychiatric: positive: Oriented x3, CN's nml (2-12), Motor nml, Sensation nml, Mood/affect nml Conclusion/Plan - Problem List (1) GI bleeding Conclusion/Plan: Patient presented to the emergency department after 3-4 days of abdominal pain, nausea and body aches. The patient took ibuprofen 400 mg 4 doses 3 days ago. After this the patient's symptoms have become worse with increasing abdominal pain and nausea. Early this morning the patient became dizzy and fell to the floor. The patient continued to remain dizzy and had a bowel movement filled with black and bloody stools as well as clots. The patient also found that his dressing around his PEG tube was soaked in blood-tinged material. On presentation to the emergency department the patient was hypotensive and appeared pale. Patient's hemoglobin dropped from 12.8 in August 2017 down to 10.0 today. The patient had no further episodes of bleeding in the emergency department however was having vomiting with dark emesis. Plan: 2 large-bore IVs H&H every 6 Transfuse if hemoglobin drops below 7 or if patient continues to be hypotensive with significant drop in hemoglobin. IV fluids IV Protonix twice daily N.p.o. Surgery consult for EGD and colonoscopy Avoid NSAIDs, blood thinners and aspirin Qualifiers: GI bleed type/associated pathology: melena Qualified Code(s): K92.1 - Melena (2) Hyperglycemia Conclusion/Plan: On presentation to the emergency department the patient blood glucose is elevated at 153. The patient does have a family history of diabetes. The patient's blood glucose may be elevated secondary to stress response due to ongoing GI bleed. We will check a hemoglobin A1c to see if patient is at risk for diabetes. (3) Dysphagia Conclusion/Plan: The patient has a history of esophageal dysmotility for which he has a PEG tube. The patient gets PEG tube feedings. Patient will be kept n.p.o. for now until he is evaluated by general surgery for possible EGD and colonoscopy. We will resume the patient's PEG tube feedings once surgery clears him to start diet. Qualifiers: Dysphagia type: esophageal phase Qualified Code(s): R13.10 - Dysphagia, unspecified - Lab Results Lab results reviewed: Yes Fish Bones: 02/04/18 02:20 02/04/18 02:20 Other Lab Results: Laboratory Results WBC 10.5 x10^3/uL (4.8-10.8) 02/04/18 02:20 RBC 3.18 10^6/uL (4.70-6.10) L 02/04/18 02:20 Hgb 10.0 g/dL (14.0-18.0) L 02/04/18 02:20 Hct 29.6 % (42.0-52.0) L 02/04/18 02:20 MCV 93.1 fL (80.0-94.0) 02/04/18 02:20 MCH 31.5 pg (27.0-31.0) H 02/04/18 02:20 MCHC 33.9 g/dL (32.0-36.0) 02/04/18 02:20 RDW 13.4 % (12.0-15.0) 02/04/18 02:20 Plt Count 263 10^3/uL (130-450) 02/04/18 02:20 MPV 8.2 fL (7.4-11.4) 02/04/18 02:20 Neut # (Auto) 7.4 10^3/uL (1.5-6.6) H 02/04/18 02:20 Lymph # (Auto) 2.1 10^3/uL (1.5-3.5) 02/04/18 02:20 [place] # (Auto) 0.7 10^3/uL (0.0-1.0) 02/04/18 02:20 Eos # (Auto) 0.2 10^3/uL (0.0-0.7) 02/04/18 02:20 Baso # (Auto) 0.1 10^3/uL (0.0-0.1) 02/04/18 02:20 Absolute Nucleated RBC 0.00 x10^3/uL 02/04/18 02:20 Nucleated RBC % 0.0 /100WBC 02/04/18 02:20 PT 13.9 secs (9.9-12.6) H 02/04/18 02:20 INR 1.2 (0.8-1.2) 02/04/18 02:20 APTT 25.5 secs (24.9-33.3) 02/04/18 02:20 Sodium 135 mmol/L (135-145) 02/04/18 02:20 Potassium 4.4 mmol/L (3.5-5.0) 02/04/18 02:20 Chloride 102 mmol/L (101-111) 02/04/18 02:20 Carbon Dioxide 27 mmol/L (21-32) 02/04/18 02:20 Anion Gap 6.0 (6-13) 02/04/18 02:20 BUN 38 mg/dL (6-20) H 02/04/18 02:20 Creatinine 0.5 mg/dL (0.6-1.2) L 02/04/18 02:20 Estimated GFR (MDRD) 174 (>89) 02/04/18 02:20 Glucose 153 mg/dL (70-100) H 02/04/18 02:20 Calcium 8.3 mg/dL (8.5-10.3) L 02/04/18 02:20 Total Bilirubin 0.3 mg/dL (0.2-1.0) 02/04/18 02:20 AST 18 IU/L (10-42) 02/04/18 02:20 ALT 11 IU/L (10-60) 02/04/18 02:20 Alkaline Phosphatase 56 IU/L (42-121) 02/04/18 02:20 Total Protein 6.2 g/dL (6.7-8.2) L 02/04/18 02:20 Albumin 2.9 g/dL (3.2-5.5) L 02/04/18 02:20 Globulin 3.3 g/dL (2.1-4.2) 02/04/18 02:20 Albumin/Globulin Ratio 0.9 (1.0-2.2) L 02/04/18 02:20 Lipase 27 U/L (22-51) 02/04/18 02:20 Core Measures - Anticipated LOS I expect patient to be DC'd or transferred within 96 hours.: Yes - DVT/VTE - Prophylaxis VTE/DVT Device ordered at admit?: Yes
[2018-02-04] MEDS ORDERED: PROMETHAZINE 25 MG/1 ML VIAL IM PRN (03:49)
[2018-02-04] MEDS ORDERED: oxyCODONE 5 MG TABLET PO PRN (03:49)
[2018-02-04] MEDS ORDERED: SODIUM CHLORIDE 0.9% 500 ML IV ONE (03:49)
[2018-02-04] MEDS ORDERED: ACETAMINOPHEN 325 MG TABLET PO PRN (03:49)
[2018-02-04] MEDS ORDERED: PROCHLORPERAZINE 10 MG/2 ML VIAL IVP PRN (03:49)
[2018-02-04] MEDS ORDERED: ZOLPIDEM 5 MG TABLET PO PRN (03:49)
[2018-02-04] MEDS ORDERED: ONDANSETRON 4 MG/2 ML VIAL IVP PRN (03:49)
[2018-02-04 05:28] LABS: BASOPHILS # (AUTO) 0.1 10^3/uL (0.0-0.1); BASOPHILS % (AUTO) 0.4 %; EOSINOPHILS % (AUTO) 0.2 %; HGB - HEMOGLOBIN 7.2 g/dL (14.0-18.0); LYMPHOCYTES # (AUTO) 1.3 10^3/uL (1.5-3.5); LYMPHOCYTES % (AUTO) 9.9 %; MEAN CORPUSCULAR HEMOGLOBIN 30.4 pg (27.0-31.0); MEAN CORPUSCULAR HGB CONC 33.1 g/dL (32.0-36.0); MEAN CORPUSCULAR VOLUME 91.9 fL (80.0-94.0); MEAN PLATELET VOLUME 8.3 fL (7.4-11.4); MONOCYTES # (AUTO) 0.7 10^3/uL (0.0-1.0); MONOCYTES % (AUTO) 4.9 %; NEUTROPHILS # (AUTO) 11.5 10^3/uL (1.5-6.6); NEUTROPHILS % (AUTO) 84.6 %; PLT - PLATELET COUNT 216 10^3/uL (130-450); RED BLOOD COUNT 2.37 10^6/uL (4.70-6.10); RED CELL DISTRIBUTION WIDTH 13.3 % (12.0-15.0); WHITE BLOOD COUNT 13.6 x10^3/uL (4.8-10.8)
[2018-02-04 05:29] LABS: INR 1.4 (0.8-1.2); PT - PROTHROMBIN TIME 15.2 secs (9.9-12.6)
[2018-02-04 05:40] LABS: ALBUMIN 2.3 g/dL (3.2-5.5); BILIRUBIN,TOTAL 0.2 mg/dL (0.2-1.0); CALCIUM 7.3 mg/dL (8.5-10.3); CREATININE 0.4 mg/dL (0.6-1.2); TOTAL PROTEIN 4.7 g/dL (6.7-8.2)
[2018-02-04] MEDS: SODIUM CHLORIDE 0.9% 1,000 ML IV ONE ×2 (05:55→06:51)
[2018-02-04] MEDS: SODIUM CHLORIDE 0.9% 1,000 ML IV SCH ×2 (07:16→10:56)
[2018-02-04] MEDS: POLYETHYLENE GLYCOL 3350 17 GM PACKET PO SCH (07:35)
[2018-02-04] MEDS: SODIUM CHLORIDE FLUSH 0.9% 10 ML SYRINGE IVP SCH ×2 (07:35→17:00)
[2018-02-04 07:52] LABS: HB2 TOTAL 7.3 g/dL; HEMOGLOBIN A1C 0.26 g/dL; HEMOGLOBIN A1C % 5.4 % (4.6-6.2)
[2018-02-04] MEDS: PANTOPRAZOLE 40 MG VIAL IVP SCH ×2 (09:06→21:12)
[2018-02-04] MEDS ORDERED: EPINEPHrine 1 MG/ML AMP ONE ×2 (09:24→13:12)
[2018-02-04] MEDS ORDERED: SODIUM CHLORIDE 0.9% 10 ML ONE (09:25)
[2018-02-04] MEDS ORDERED: SIMETHICONE 40 MG/0.6 ML 30 ML BOTTLE ONE (09:28)
--- NOTE | 2018-02-04 10:14 | ANESTHESIA ---
Pre-Anesthesia VS, & Labs - Diagnosis gastrointestinal bleeding - Procedure Upper endoscopy (EGD) Vital Signs: Temp Pulse Resp BP Pulse Ox 36.4 C L 88 17 104/50 L 100 02/04/18 09:51 02/04/18 09:56 02/04/18 09:56 02/04/18 09:56 02/04/18 09:32 Height 5 ft 8 in Weight (kg) 62.5 kg Body Mass Index 20.9 - NPO >8 hours - Is Patient ?: No - Lab Results Lab results reviewed: Yes Fish Bones: 02/04/18 05:10 02/04/18 05:10 Home Medications and Allergies Home Medications: Ambulatory Orders Medication Instructions Recorded Confirmed Ferrous Sulfate 5 ml PEG DAILY 02/04/18 02/04/18 Jevity 16 oz PEG DAILY 02/04/18 Allergies/Adverse Reactions: Allergies Allergy/AdvReac Type Severity Reaction Status Date / Time No Known Drug Allergies Allergy Verified 02/04/18 02:35 Anes History & Medical History - Anesthetic History Anesthesia Complications: reports: No previous complications Family history of Anesthesia Complications: Denies Family history of Malignant Hyperthermia: Denies - Airway/Dental Neck Mobility: Normal Mallampati classification: II Thyromental Distance: 4-6 cm - Medical History Cardiovascular: reports: None Pulmonary: reports: None Gastrointestinal: reports: GERD, GI bleed, Other (Esophageal dysmotility status post PEG tube) Urinary: reports: None Neuro: reports: None, Head injury (at 18, no residuals) Musculoskeletal: reports: Other Endocrine/Autoimmune: reports: None Blood Disorders: reports: Anemia Skin: reports: None Smoking Status: Light tobacco smoker Psychosocial: reports: No issues indicated Other Past Medical History: "Esophagus not working" - Surgical History General: Appendectomy, EGD Orthopedic: Other Exam General: Alert Cardiovascular: Regular rate Mental/Cognitive Status: Alert/Oriented X3 Plan Anesthesia Type: MAC Consent for Operative Procedure(s) Verified and Reviewed: Yes Code Status: Attempt Resuscitation ASA classification: 2-Mild systemic disease Is this case an emergency?: Yes
[2018-02-04 12:35] LABS: BASOPHILS % (AUTO) 0.3 %; EOSINOPHILS % (AUTO) 0.1 %; LYMPHOCYTES # (AUTO) 1.6 10^3/uL (1.5-3.5); MEAN CORPUSCULAR HEMOGLOBIN 30.8 pg (27.0-31.0); MEAN CORPUSCULAR HGB CONC 33.6 g/dL (32.0-36.0); MEAN CORPUSCULAR VOLUME 91.7 fL (80.0-94.0); MEAN PLATELET VOLUME 8.4 fL (7.4-11.4); MONOCYTES # (AUTO) 0.7 10^3/uL (0.0-1.0); MONOCYTES % (AUTO) 5.6 %; NEUTROPHILS # (AUTO) 10.2 10^3/uL (1.5-6.6); PLT - PLATELET COUNT 144 10^3/uL (130-450); RED BLOOD COUNT 2.21 10^6/uL (4.70-6.10); RED CELL DISTRIBUTION WIDTH 14.3 % (12.0-15.0); WHITE BLOOD COUNT 12.6 x10^3/uL (4.8-10.8)
[2018-02-04] MEDS ORDERED: LIDO GARGLE 30 ML BOTTLE PO ONE (12:35)
[2018-02-04 12:37] LABS: HGB - HEMOGLOBIN 6.8 g/dL (14.0-18.0)
[2018-02-04] MEDS ORDERED: LIDO GARGLE 30 ML BOTTLE ONE (12:41)
[2018-02-04] MEDS ORDERED: THROMBIN (BOVINE) 5,000 UNIT VIAL TOP ONE (12:56)
[2018-02-04] MEDS ORDERED: EPINEPHrine 1 MG/ML AMP IVP ONE ×2 (12:56→13:38)
[2018-02-04] MEDS ORDERED: PROPOFOL 200 MG/20 ML VIAL IVP ONE (13:00)
[2018-02-04] MEDS ORDERED: LIDOCAINE-MPF 2% 5 ML VIAL IM ONE (13:00)
[2018-02-04] MEDS ORDERED: ePHEDrine 50 MG/ML VIAL IVP ONE (13:00)
[2018-02-04] MEDS ORDERED: MIDAZOLAM 2 MG/2 ML VIAL IVP ONE (13:00)
[2018-02-04] MEDS ORDERED: fentaNYL 100 MCG/2 ML VIAL IVP ONE (13:00)
[2018-02-04] MEDS ORDERED: LACTATED RINGERS 1,000 ML IV ONE (13:30)
[2018-02-04] MEDS ORDERED: MORPHINE 2 MG/ML CARPUJECT ONE (13:49)
--- NOTE | 2018-02-04 14:18 | PROVIDER PROGRESS NOTE ---
Subjective - Prog Note Date Prog Note Date: 02/04/18 Prog Note Time: 14:14 - Subjective Pt reports feeling: Improved Subjective: I received sign out this morning about his GI bleed and he received 2 units of blood. In the midmorning he then developed sudden hypotension and felt "woozy" . [place] like his vision was going "great". Pressure dropped to 54 systolic. He then had an explosive bowel movement of large bloody stool. I transferred him to the ICU and bolused him the 2 units of blood as well as 1 L normal saline. Systolic went back up to the 80s where he tells me that that is his baseline blood pressure. He was then taken to the OR for and a esophagogastroduodenoscopy and was found to have an arterial bleed in the duodenum. It was actively bleeding and then subsequently injected. Current Medications - Current Medications Current Medications: Active Medications Sodium Chloride (Normal Saline 0.9%) 1,000 mls @ 100 mls/hr IV .Q10H [facility] Last Admin: 02/04/18 10:56 Dose: 100 mls/hr Morphine Sulfate (Morphine) 2 mg IVP Q2H PRN PRN Reason: PAIN Ondansetron HCl (Zofran Inj) 4 mg IVP Q6HR PRN PRN Reason: Nausea / Vomiting Pantoprazole Sodium (Protonix) 40 mg IVP BID [facility] Last Admin: 02/04/18 09:06 Dose: 40 mg Polyethylene Glycol (Miralax) 17 gm PO DAILY [facility] Last Admin: 02/04/18 07:35 Dose: Not Given Prochlorperazine Edisylate (Compazine Inj) 10 mg IVP Q6HR PRN PRN Reason: Nausea / Vomiting Promethazine HCl (Phenergan Inj) 25 mg IM Q6HR PRN PRN Reason: Nausea / Vomiting Sodium Chloride (Normal Saline Flush 0.9%) 10 ml IVP PRN PRN PRN Reason: NEEDED PER PROVIDER ORDERS Sodium Chloride (Normal Saline Flush 0.9%) 10 ml IVP 0100,0900,1700 [facility] Last Admin: 02/04/18 07:35 Dose: Not Given Jevity 6 bottle PEG DAILY 02/04/18 RX: Ferrous Sulfate 5 ml PEG DAILY 02/04/18 Objective - Vital Signs/Intake & Output Vital Signs: Vital Signs x48h Temp Pulse Pulse Resp BP BP Pulse Ox 02/04/18 14:10 20 125/75 100 02/04/18 14:05 28 H 117/76 100 02/04/18 14:00 28 H 128/80 100 02/04/18 13:55 24 116/79 100 02/04/18 13:50 24 124/78 100 02/04/18 13:45 37 C 24 119/75 100 02/04/18 13:40 31 H 124/75 100 02/04/18 13:35 24 124/64 100 02/04/18 13:30 37.1 C 32 H 123/77 100 02/04/18 13:25 36.9 C 24 125/77 100 02/04/18 13:20 28 H 137/70 H 100 02/04/18 13:12 37 C 40 H 133/81 H 100 02/04/18 12:00 36.8 C 91 18 89/53 L 100 02/04/18 11:56 36.7 C 81 21 84/59 L 02/04/18 11:41 36.9 C 85 19 75/50 L 02/04/18 11:00 36.8 C 94 90 22 89/65 L 89/65 L 100 02/04/18 10:00 88 18 78/48 L 100 02/04/18 09:56 88 17 104/50 L 02/04/18 09:51 36.4 C L 77 16 87/44 L 02/04/18 09:49 36.9 C 95 16 59/35 L 02/04/18 09:41 36.7 C 93 20 91/61 02/04/18 09:32 103 H 20 88/50 L 100 02/04/18 09:26 36.7 C 96 23 98/54 L 02/04/18 08:00 36.6 C 90 18 70/46 L 100 Intake & Output: Intake & Output 02/01/18 02/02/18 02/03/18 02/04/18 23:59 23:59 23:59 23:59 Intake Total 4316.667 Output Total 700 Balance 3616.667 - Objective General Appearance: positive: Alert, Mild distress (he was diaphoretic and very pale on transfer to ICU and now color has returned. He tells me that 84 systolic is normal.) Eyes Bilateral: positive: PERRL, EOMI ENT: positive: Pharynx nml Neck: positive: No JVD Respiratory: positive: Chest non-tender. negative: Wheezes, Rales, Rhonchi Cardiovascular: positive: Regular rate & rhythm, Tachycardia. negative: Systolic murmur, Gallop/S4, Friction rub Abdomen: positive: No organomegaly, Nml bowel sounds, No distention Skin: positive: Warm, Dry, Pallor Extremities: positive: Full ROM, No pedal edema Neurologic/Psychiatric: positive: Oriented x3, CN's nml (2-12), Motor nml - Lab Results Fish Bones: 02/04/18 12:15 02/04/18 05:10 Other Labs: Lab Results x24hrs 02/04/18 02/04/18 02/04/18 Range/Units 12:15 05:10 05:10 WBC 12.6 H (4.8-10.8) x10^3/uL RBC 2.21 L (4.70-6.10) 10^6/uL Hgb 6.8 L* (14.0-18.0) g/dL Hct 20.2 L (42.0-52.0) % MCV 91.7 (80.0-94.0) fL MCH 30.8 (27.0-31.0) pg MCHC 33.6 (32.0-36.0) g/dL RDW 14.3 (12.0-15.0) % Plt Count 144 (130-450) 10^3/uL MPV 8.4 (7.4-11.4) fL Neut # (Auto) 10.2 H (1.5-6.6) 10^3/uL Lymph # (Auto) 1.6 (1.5-3.5) 10^3/uL [place] # (Auto) 0.7 (0.0-1.0) 10^3/uL Eos # (Auto) 0.0 (0.0-0.7) 10^3/uL Baso # (Auto) 0.0 (0.0-0.1) 10^3/uL Absolute Nucleated RBC 0.00 x10^3/uL Nucleated RBC % 0.0 /100WBC PT (9.9-12.6) secs INR (0.8-1.2) Sodium 136 (135-145) mmol/L Potassium 4.5 (3.5-5.0) mmol/L Chloride 108 (101-111) mmol/L Carbon Dioxide 25 (21-32) mmol/L Anion Gap 3.0 L (6-13) BUN 37 H (6-20) mg/dL Creatinine 0.4 L (0.6-1.2) mg/dL Estimated GFR (MDRD) 225 (>89) Glucose 134 H (70-100) mg/dL Glycated Hemoglobin 5.4 (4.6-6.2) % Estim Average Glucose 108 H (70-100) Calcium 7.3 L (8.5-10.3) mg/dL Total Bilirubin 0.2 (0.2-1.0) mg/dL AST 14 (10-42) IU/L ALT 11 (10-60) IU/L Alkaline Phosphatase 44 (42-121) IU/L Total Protein 4.7 L (6.7-8.2) g/dL Albumin 2.3 L (3.2-5.5) g/dL Globulin 2.4 (2.1-4.2) g/dL Albumin/Globulin Ratio 1.0 (1.0-2.2) 02/04/18 02/04/18 Range/Units 05:10 05:10 WBC 13.6 H (4.8-10.8) x10^3/uL RBC 2.37 L (4.70-6.10) 10^6/uL Hgb 7.2 L (14.0-18.0) g/dL Hct 21.8 L (42.0-52.0) % MCV 91.9 (80.0-94.0) fL MCH 30.4 (27.0-31.0) pg MCHC 33.1 (32.0-36.0) g/dL RDW 13.3 (12.0-15.0) % Plt Count 216 (130-450) 10^3/uL MPV 8.3 (7.4-11.4) fL Neut # (Auto) 11.5 H (1.5-6.6) 10^3/uL Lymph # (Auto) 1.3 L (1.5-3.5) 10^3/uL [place]gs # (Auto) 0.7 (0.0-1.0) 10^3/uL Eos # (Auto) 0.0 (0.0-0.7) 10^3/uL Baso # (Auto) 0.1 (0.0-0.1) 10^3/uL Absolute Nucleated RBC 0.00 x10^3/uL Nucleated RBC % 0.0 /100WBC PT 15.2 H (9.9-12.6) secs INR 1.4 H (0.8-1.2) Sodium (135-145) mmol/L Potassium (3.5-5.0) mmol/L Chloride (101-111) mmol/L Carbon Dioxide (21-32) mmol/L Anion Gap (6-13) BUN (6-20) mg/dL Creatinine (0.6-1.2) mg/dL Estimated GFR (MDRD) (>89) Glucose (70-100) mg/dL Glycated Hemoglobin (4.6-6.2) % Estim Average Glucose (70-100) Calcium (8.5-10.3) mg/dL Total Bilirubin (0.2-1.0) mg/dL AST (10-42) IU/L ALT (10-60) IU/L Alkaline Phosphatase (42-121) IU/L Total Protein (6.7-8.2) g/dL Albumin (3.2-5.5) g/dL Globulin (2.1-4.2) g/dL Albumin/Globulin Ratio (1.0-2.2) ABX Reporting Has patient been on IV antibiotics over the past 48 hours?: No Assessment/Plan - Problem List (1) Duodenal ulcer with hemorrhage Impression: Patient presented to the emergency department after 3-4 days of abdominal pain, nausea and body aches. The patient took ibuprofen 400 mg 4 doses 3 days ago. After this the patient's symptoms have become worse with increasing abdominal pain and nausea. Early this morning the patient became dizzy and fell to the floor. The patient continued to remain dizzy and had a bowel movement filled with black and bloody stools as well as clots. The patient also found that his dressing around his PEG tube was soaked in blood-tinged material. On presentation to the emergency department the patient was hypotensive and appeared pale. Patient's hemoglobin dropped from 12.8 in August 2017 down to 10.0 today. The patient had no further episodes of bleeding in the emergency department however was having vomiting with dark emesis. He dropped to 7 gram later this morning and transfused 2 units. After those 2 units still 6 grams Hgb and had more bloody stool. Transfusing 2 more units. Taken to OR for EGD and large arterial duodenal bleed. Plan: 2 large-bore IVs Continue H&H every 6 for 24 more hours and plan for total of 48 more hours here. Transfuse if hemoglobin drops below 7 or if patient continues to be hypotensive with significant drop in hemoglobin. IV fluids IV Protonix twice daily to continue N.p.o. until this evening. Add carafate slurry Surgery wants to see him in 6 weeks and repeat scope in 8 weeks Avoid NSAIDs, blood thinners and aspirin forever. Qualifiers: GI bleed type/associated pathology: melena Qualified Code(s): K92.1 - Melena (2) Hyperglycemia Conclusion/Plan: On presentation to the emergency department the patient blood glucose is elevated at 153. The patient does have a family history of diabetes. The patient's blood glucose may be elevated secondary to stress response due to ongoing GI bleed. Repeat was 134 and A1c was 5.4% (3) Dysphagia Conclusion/Plan: The patient has a history of esophageal dysmotility for which he has a PEG tube. The patient gets PEG tube feedings. We will resume the patient's PEG tube feedings once surgery clears him to start diet. that may be this evening if his hgb stays stable. Qualifiers: Dysphagia type: esophageal phase Qualified Code(s): R13.10 - Dysphagia, unspecified
--- NOTE | 2018-02-04 14:38 | XRAY Report ---
Procedure Date: 02/04/2018 Accession Number: [id number] / [id number] Procedure: XR - Chest 1 View X-Ray CPT Code: 31532 FULL RESULT: EXAM: Chest 1 View X-Ray DATE: 02/04/2018 2:22 PM CLINICAL HISTORY: Pt SOB with chest pain COMPARISON: None. TECHNIQUE: Single view of the chest. FINDINGS: There is free subdiaphragmatic gas. Lung volumes are low without focal lung opacity, pneumothorax or pleural effusion. The cardiomediastinal silhouette is within normal limits. IMPRESSION: Free extraintestinal subdiaphragmatic peritoneal air. Findings of free air were discussed in person with SERGEI Kumar at 2:30 PM [facility]
[2018-02-04] MEDS ORDERED: SUCRALFATE 1 GM/10 ML UDC PO SCH (15:00)
[2018-02-04 16:02] LABS: BASOPHILS % (AUTO) 0.2 %; HGB - HEMOGLOBIN 8.5 g/dL (14.0-18.0); LYMPHOCYTES # (AUTO) 1.5 10^3/uL (1.5-3.5); LYMPHOCYTES % (AUTO) 9.4 %; MEAN PLATELET VOLUME 7.9 fL (7.4-11.4); MONOCYTES # (AUTO) 1.2 10^3/uL (0.0-1.0); MONOCYTES % (AUTO) 7.2 %; NEUTROPHILS # (AUTO) 13.4 10^3/uL (1.5-6.6); NEUTROPHILS % (AUTO) 83.2 %; PLT - PLATELET COUNT 128 10^3/uL (130-450); RED BLOOD COUNT 2.85 10^6/uL (4.70-6.10); RED CELL DISTRIBUTION WIDTH 14.4 % (12.0-15.0); WHITE BLOOD COUNT 16.1 x10^3/uL (4.8-10.8)
[2018-02-04] MEDS: SODIUM CHLORIDE FLUSH 0.9% 10 ML SYRINGE IVP PRN (21:12)
[2018-02-04 22:06] LABS: BASOPHILS # (AUTO) 0.1 10^3/uL (0.0-0.1); BASOPHILS % (AUTO) 1.1 %; EOSINOPHILS # (AUTO) 0.1 10^3/uL (0.0-0.7); EOSINOPHILS % (AUTO) 0.5 %; HGB - HEMOGLOBIN 7.7 g/dL (14.0-18.0); LYMPHOCYTES # (AUTO) 2.6 10^3/uL (1.5-3.5); LYMPHOCYTES % (AUTO) 24.7 %; MEAN CORPUSCULAR HEMOGLOBIN 30.7 pg (27.0-31.0); MEAN CORPUSCULAR VOLUME 90.4 fL (80.0-94.0); MEAN PLATELET VOLUME 8.1 fL (7.4-11.4); MONOCYTES # (AUTO) 0.6 10^3/uL (0.0-1.0); MONOCYTES % (AUTO) 5.6 %; NEUTROPHILS # (AUTO) 7.2 10^3/uL (1.5-6.6); NEUTROPHILS % (AUTO) 68.1 %; PLT - PLATELET COUNT 122 10^3/uL (130-450); RED CELL DISTRIBUTION WIDTH 14.5 % (12.0-15.0); WHITE BLOOD COUNT 10.5 x10^3/uL (4.8-10.8)
--- NOTE | 2018-02-04 22:47 | CONSULTATION NOTE ---
Referring Provider Name of Referring Provider:: Dr. Cristal Martinez Consult Date: 02/04/18 Chief Complaint - Chief Complaint Chief Complaint: Profound GI bleeding History of Present Illness - Admitted From Admitted From:: [facility] ED - History Obtained From Records Reviewed: Yes History obtained from: Patient and chart Exam Limitations: None - History of Present Illness HPI Comment/Other: Dr. Cristal Martinez asked to see this very pleasant 53-year-old gentleman urgently for profound gastrointestinal bleeding. I actually know this gentleman is I have performed several scopes on them in the past. The EGDs showed a basically atonic esophagus with a similarly atonic lower esophageal sphincter. This was not achalasia. I sent him to [facility] for a gastrointestinal opinion where he was rescoped and a very clear note was generated stating that there is no medical or surgical treatment for the disease process that he had. The patient then had a gastrostomy tube placed for poor p.o. intake. The patient was recently seen by my partner Dr. Trenton Arevalo for consideration repeat endoscopy and was scheduled for February 26. Dr. Pearson asked to see emergently after his blood pressure had gone down to 60 systolic and his hemoglobin was found to be around 5. In my discussions with the patient he states that he has recently started taking ibuprofen for musculoskeletal pain. He has not and has not been on proton pump inhibitors, H2 blockers, or [id number] antacids. He states the symptoms of abdominal pain have been present for approximately 3-4 days. He denies hematemesis but states that he has had some very dark black stools. History - Past Medical History Cardiovascular: reports: None Respiratory: reports: None Neuro: reports: None, Head injury (at 18, no residuals) Endocrine/Autoimmune: reports: None GI: reports: GERD, GI bleed, Other (Esophageal dysmotility status post PEG tube) : reports: None HEENT: reports: None Psych: reports: None Musculoskeletal: reports: Other Derm: reports: None MRSA Hx?: No Other Past Medical History: "Esophagus not working" - Past Surgical History General: reports: Appendectomy, EGD Ortho: reports: Other - Family & Social History Family History: Mother: CVA/TIA, Diabetes, Type 2, [place], Sister: Obesity Living arrangement: At home Living Situation: With spouse/s.o. Social History Notes: The patient lives in [place] with his . He and his have been for 34 years. The patient is originally from [place] but moved to [facility] at the age of 14 and met his at the age of 17 and they have been together ever since. The patient has 1 biological daughter who lives just down the street. The patient was a former smoker and smoked in his 30s, he was never a heavy smoker and quit many years ago. He states he does smoke cigars now and again. He denies any alcohol use or illicit drug use. - POLST Patient has POLST: No POLST Status: Full Code Meds/Allgy - Home Medications Home Medications: Ambulatory Orders Medication Instructions Recorded Confirmed Ferrous Sulfate 5 ml PEG DAILY 02/04/18 02/04/18 Jevity 6 bottle PEG DAILY 02/04/18 02/04/18 - Allergies Allergies/Adverse Reactions: Allergies Allergy/AdvReac Type Severity Reaction Status Date / Time No Known Drug Allergies Allergy Verified 02/04/18 02:35 Review of Systems - Constitutional Constitutional: reports: Weakness - Gastrointestinal Gastrointestinal: reports: Abdominal pain, Black stools, Nausea (==) Exam - Vital Signs Reviewed Vital Signs: Yes Vital Signs: Vital Signs x48h Temp Pulse Resp BP Pulse Ox 02/04/18 22:00 70 18 89/57 L 98 02/04/18 21:00 60 18 94/60 98 02/04/18 20:00 36.8 C 66 18 98/55 L 96 02/04/18 19:00 79 22 97/59 L 100 02/04/18 18:00 66 20 95/62 99 02/04/18 17:00 74 21 106/68 98 02/04/18 16:00 36.8 C 86 24 100/68 99 02/04/18 15:00 87 21 115/79 100 - Physical Exam General Appearance: positive: No acute distress Eyes Bilateral: positive: No lid inflammation, Conjunctivae nml, No scleral icterus ENT: positive: Dry mucous membranes Neck: positive: Trachea midline Respiratory: positive: Chest non-tender, No respiratory distress, Breath sounds nml Cardiovascular: positive: Regular rate & rhythm, Tachycardia Abdomen: positive: Non-tender, Nml bowel sounds Skin: positive: Color nml Extremities: positive: Nml appearance Neurologic/Psychiatric: positive: Oriented x3 Conclusion/Plan - Diagnosis Diagnosis: Acute gastrointestinal bleeding likely secondary to nonsteroidal anti -inflammatory use - Plan Plan: Esophagogastroduodenoscopy with possible biopsies and/or polypectomies. Indications, procedure, alternatives (such as barium studies and even no procedure at all) and risks including but not limited to perforation requiring operative repair, bleeding with its risks, and were fully explained to him. In the past, I alana diagrams explaining the upper gastrointestinal anatomy and the proposed procedure and handed it to him. I explained that his posterior oropharynx would be anesthetized for the procedure. I explained that MAC anesthesia is associated with a higher incidence of intestinal perforation. Review of his history does not reveal any significant systemic disease that would contraindicate use of conscious sedation or MAC anesthesia. All questions were fully answered. Verbal and written consent was obtained. The patient in preparation for his esophagogastroduodenoscopy will be n.p.o. In the meantime the patient will be receiving blood. 30 minutes of [id number] time spent with the patient the majority of which was spent in discussion, coordination of his care, and completion of the requisite paperwork - Lab Results Lab results reviewed: Yes Laith Bones: 02/04/18 15:55 02/04/18 05:10
--- NOTE | 2018-02-04 22:56 | MISCELLANEOUS PROVIDER NOTE ---
Miscellaneous Provider Note - - Note: I was informed then following the procedure to stop his bleeding pyloric ulcer that the patient had free air underneath the diaphragm. The injection of the vessel actively bleeding vessel and ulcer base likely resulted in the air. The injection was in the retroperitoneal direction. It is unlikely that this will progress to anything more serious but in order to protect the patient, I will start him on antibiotics and add Carafate to protect the gastric mucosa and allow for the ulcer to heal. Additionally, serial exams will be done and repeat labs have been ordered for the morning. This evening when I examined the patient and spoke to him he was completely asymptomatic. Specifically, he was not tachycardic not tachypneic not hypotensive and did not complain of abdominal pain.
[2018-02-05] MEDS: PIPERACILLIN/TAZOBACTAM 3.375 GM in SODIUM CHLORIDE 0.9% MINIBAG 100 ML IV SCH ×4 (00:01→17:15)
[2018-02-05] MEDS: SUCRALFATE 1 GM/10 ML UDC GT SCH ×5 (00:07→21:37)
[2018-02-05] MEDS: MORPHINE 2 MG/ML SYRINGE IVP PRN ×2 (00:18→22:15)
[2018-02-05] MEDS: SODIUM CHLORIDE 0.9% 1,000 ML IV SCH ×2 (03:32→19:50)
[2018-02-05] MEDS: SODIUM CHLORIDE FLUSH 0.9% 10 ML SYRINGE IVP SCH ×3 (03:33→16:00)
[2018-02-05 04:35] LABS: BASOPHILS # (AUTO) 0.1 10^3/uL (0.0-0.1); BASOPHILS % (AUTO) 0.7 %; EOSINOPHILS # (AUTO) 0.1 10^3/uL (0.0-0.7); EOSINOPHILS % (AUTO) 1.4 %; HGB - HEMOGLOBIN 7.1 g/dL (14.0-18.0); LYMPHOCYTES # (AUTO) 2.9 10^3/uL (1.5-3.5); LYMPHOCYTES % (AUTO) 35.7 %; MEAN CORPUSCULAR HEMOGLOBIN 30.8 pg (27.0-31.0); MEAN CORPUSCULAR HGB CONC 33.9 g/dL (32.0-36.0); MEAN CORPUSCULAR VOLUME 90.8 fL (80.0-94.0); MEAN PLATELET VOLUME 8.2 fL (7.4-11.4); MONOCYTES # (AUTO) 0.6 10^3/uL (0.0-1.0); MONOCYTES % (AUTO) 7.1 %; NEUTROPHILS # (AUTO) 4.4 10^3/uL (1.5-6.6); NEUTROPHILS % (AUTO) 55.1 %; PLT - PLATELET COUNT 114 10^3/uL (130-450); RED BLOOD COUNT 2.29 10^6/uL (4.70-6.10); RED CELL DISTRIBUTION WIDTH 14.5 % (12.0-15.0); WHITE BLOOD COUNT 8.1 x10^3/uL (4.8-10.8)
[2018-02-05 04:47] LABS: ALBUMIN 2.1 g/dL (3.2-5.5); ALBUMIN/GLOBULIN RATIO 1.2 (1.0-2.2); BILIRUBIN,TOTAL 0.6 mg/dL (0.2-1.0); CALCIUM 7.5 mg/dL (8.5-10.3); CREATININE 0.5 mg/dL (0.6-1.2); TOTAL PROTEIN 3.9 g/dL (6.7-8.2)
--- NOTE | 2018-02-05 08:08 | PROVIDER PROGRESS NOTE ---
Subjective - Prog Note Date Prog Note Date: 02/05/18 Prog Note Time: 08:08 - Subjective Pt reports feeling: Improved Subjective: He is not having much nausea, no more bloody stools since yesterday. No abdominal pain. Very tired. No shortness of breath at rest. The chest pain he had immediately after being in the OR is gone. Current Medications - Current Medications Current Medications: Active Medications Sodium Chloride (Normal Saline 0.9%) 1,000 mls @ 100 mls/hr IV .Q10H [facility] Last Admin: 02/05/18 03:32 Dose: 100 mls/hr Piperacillin Sod/Tazobactam (Sod 3.375 gm/ Sodium Chloride) 100 mls @ 200 mls/ hr IV Q6HR [facility] Last Admin: 02/05/18 06:00 Dose: 200 mls/hr Morphine Sulfate (Morphine) 2 mg IVP Q2H PRN PRN Reason: PAIN Last Admin: 02/05/18 00:18 Dose: 2 mg Ondansetron HCl (Zofran Inj) 4 mg IVP Q6HR PRN PRN Reason: Nausea / Vomiting Pantoprazole Sodium (Protonix) 40 mg IVP BID [facility] Last Admin: 02/04/18 21:12 Dose: 40 mg Polyethylene Glycol (Miralax) 17 gm PO DAILY [facility] Last Admin: 02/04/18 07:35 Dose: Not Given Prochlorperazine Edisylate (Compazine Inj) 10 mg IVP Q6HR PRN PRN Reason: Nausea / Vomiting Promethazine HCl (Phenergan Inj) 25 mg IM Q6HR PRN PRN Reason: Nausea / Vomiting Sodium Chloride (Normal Saline Flush 0.9%) 10 ml IVP PRN PRN PRN Reason: NEEDED PER PROVIDER ORDERS Last Admin: 02/04/18 21:12 Dose: 10 ml Sodium Chloride (Normal Saline Flush 0.9%) 10 ml IVP 0100,0900,1700 [facility] Last Admin: 02/05/18 03:33 Dose: 10 ml Sucralfate (Carafate) 1 gm GT 0700,1100,1600,2200 [facility] Last Admin: 02/05/18 00:07 Dose: 1 gm Ferrous Sulfate 5 ml PEG DAILY 02/04/18 Jevity 6 bottle PEG DAILY 02/04/18 Objective - Vital Signs/Intake & Output Reviewed Vital Signs: Yes Vital Signs: Vital Signs x48h Temp Pulse Pulse Resp BP BP Pulse Ox 02/05/18 07:45 97.8 C H 64 17 99/69 02/05/18 07:00 36.6 C 59 L 22 86/60 L 100 02/05/18 06:00 62 20 91/60 97 02/05/18 05:41 97.9 C H 64 18 88/52 L 02/05/18 05:15 36.6 C 60 23 84/51 L 02/05/18 05:00 98 C H 66 18 84/51 L 96 02/05/18 04:00 88 20 82/62 L 97 02/05/18 03:00 56 L 12 85/66 L 97 02/05/18 02:00 52 L 13 84/52 L 97 02/05/18 01:00 56 L 13 86/52 L 99 Intake & Output: Intake & Output 02/02/18 02/03/18 02/04/18 02/05/18 23:59 23:59 23:59 23:59 Intake Total 5416.667 1715 Output Total 1300 570 Balance 4116.667 1145 - Objective General Appearance: positive: No acute distress, Alert Eyes Bilateral: positive: PERRL ENT: positive: Pharynx nml Neck: positive: No JVD. negative: Stiff neck, Carotid bruit Respiratory: positive: Chest non-tender. negative: Wheezes, Rales, Rhonchi Cardiovascular: positive: Regular rate & rhythm. negative: Systolic murmur, Gallop/S4, Friction rub Abdomen: positive: No organomegaly, Nml bowel sounds, Tenderness (Around the PEG tube site.). negative: Guarding, Rebound Skin: positive: Warm, Dry Extremities: positive: Full ROM, No pedal edema Neurologic/Psychiatric: positive: Oriented x3, CN's nml (2-12), Motor nml, Sensation nml - Lab Results Fish Bones: 02/05/18 04:23 02/05/18 04:23 Other Labs: Lab Results x24hrs 02/05/18 02/05/18 02/05/18 Range/Units 04:23 04:23 04:23 WBC 8.1 (4.8-10.8) x10^3/uL RBC 2.29 L (4.70-6.10) 10^6/uL Hgb 7.1 L (14.0-18.0) g/dL Hct 20.8 L (42.0-52.0) % MCV 90.8 (80.0-94.0) fL MCH 30.8 (27.0-31.0) pg MCHC 33.9 (32.0-36.0) g/dL RDW 14.5 (12.0-15.0) % Plt Count 114 L (130-450) 10^3/uL MPV 8.2 (7.4-11.4) fL Neut # (Auto) 4.4 (1.5-6.6) 10^3/uL Lymph # (Auto) 2.9 (1.5-3.5) 10^3/uL [place] # (Auto) 0.6 (0.0-1.0) 10^3/uL Eos # (Auto) 0.1 (0.0-0.7) 10^3/uL Baso # (Auto) 0.1 (0.0-0.1) 10^3/uL Absolute Nucleated RBC 0.00 x10^3/uL Nucleated RBC % 0.0 /100WBC Sodium 141 (135-145) mmol/L Potassium 3.7 (3.5-5.0) mmol/L Chloride 115 H (101-111) mmol/L Carbon Dioxide 23 (21-32) mmol/L Anion Gap 3.0 L (6-13) BUN 23 H (6-20) mg/dL Creatinine 0.5 L (0.6-1.2) mg/dL Estimated GFR (MDRD) 174 (>89) Glucose 104 H (70-100) mg/dL Lactic Acid 0.9 (0.5-2.2) mmol/L Calcium 7.5 L (8.5-10.3) mg/dL Total Bilirubin 0.6 (0.2-1.0) mg/dL AST 17 (10-42) IU/L ALT 10 (10-60) IU/L Alkaline Phosphatase 33 L (42-121) IU/L Troponin I (<0.49) ng/mL Total Protein 3.9 L (6.7-8.2) g/dL Albumin 2.1 L (3.2-5.5) g/dL Globulin 1.8 L (2.1-4.2) g/dL Albumin/Globulin Ratio 1.2 (1.0-2.2) 02/04/18 02/04/18 02/04/18 Range/Units 21:55 15:55 13:58 WBC 10.5 16.1 H (4.8-10.8) x10^3/uL RBC 2.50 L 2.85 L (4.70-6.10) 10^6/uL Hgb 7.7 L 8.5 L (14.0-18.0) g/dL Hct 22.6 L 25.9 L (42.0-52.0) % MCV 90.4 91.0 (80.0-94.0) fL MCH 30.7 30.0 (27.0-31.0) pg MCHC 34.0 33.0 (32.0-36.0) g/dL RDW 14.5 14.4 (12.0-15.0) % Plt Count 122 L 128 L (130-450) 10^3/uL MPV 8.1 7.9 (7.4-11.4) fL Neut # (Auto) 7.2 H 13.4 H (1.5-6.6) 10^3/uL Lymph # (Auto) 2.6 1.5 (1.5-3.5) 10^3/uL [place] # (Auto) 0.6 1.2 H (0.0-1.0) 10^3/uL Eos # (Auto) 0.1 0.0 (0.0-0.7) 10^3/uL Baso # (Auto) 0.1 0.0 (0.0-0.1) 10^3/uL Absolute Nucleated RBC 0.00 0.00 x10^3/uL Nucleated RBC % 0.0 0.0 /100WBC Sodium (135-145) mmol/L Potassium (3.5-5.0) mmol/L Chloride (101-111) mmol/L Carbon Dioxide (21-32) mmol/L Anion Gap (6-13) BUN (6-20) mg/dL Creatinine (0.6-1.2) mg/dL Estimated GFR (MDRD) (>89) Glucose (70-100) mg/dL Lactic Acid (0.5-2.2) mmol/L Calcium (8.5-10.3) mg/dL Total Bilirubin (0.2-1.0) mg/dL AST (10-42) IU/L ALT (10-60) IU/L Alkaline Phosphatase (42-121) IU/L Troponin I < 0.04 (<0.49) ng/mL Total Protein (6.7-8.2) g/dL Albumin (3.2-5.5) g/dL Globulin (2.1-4.2) g/dL Albumin/Globulin Ratio (1.0-2.2) 02/04/18 Range/Units 12:15 WBC 12.6 H (4.8-10.8) x10^3/uL RBC 2.21 L (4.70-6.10) 10^6/uL Hgb 6.8 L* (14.0-18.0) g/dL Hct 20.2 L (42.0-52.0) % MCV 91.7 (80.0-94.0) fL MCH 30.8 (27.0-31.0) pg MCHC 33.6 (32.0-36.0) g/dL RDW 14.3 (12.0-15.0) % Plt Count 144 (130-450) 10^3/uL MPV 8.4 (7.4-11.4) fL Neut # (Auto) 10.2 H (1.5-6.6) 10^3/uL Lymph # (Auto) 1.6 (1.5-3.5) 10^3/uL [place] # (Auto) 0.7 (0.0-1.0) 10^3/uL Eos # (Auto) 0.0 (0.0-0.7) 10^3/uL Baso # (Auto) 0.0 (0.0-0.1) 10^3/uL Absolute Nucleated RBC 0.00 x10^3/uL Nucleated RBC % 0.0 /100WBC Sodium (135-145) mmol/L Potassium (3.5-5.0) mmol/L Chloride (101-111) mmol/L Carbon Dioxide (21-32) mmol/L Anion Gap (6-13) BUN (6-20) mg/dL Creatinine (0.6-1.2) mg/dL Estimated GFR (MDRD) (>89) Glucose (70-100) mg/dL Lactic Acid (0.5-2.2) mmol/L Calcium (8.5-10.3) mg/dL Total Bilirubin (0.2-1.0) mg/dL AST (10-42) IU/L ALT (10-60) IU/L Alkaline Phosphatase (42-121) IU/L Troponin I (<0.49) ng/mL Total Protein (6.7-8.2) g/dL Albumin (3.2-5.5) g/dL Globulin (2.1-4.2) g/dL Albumin/Globulin Ratio (1.0-2.2) ABX Reporting Has patient been on IV antibiotics over the past 48 hours?: No Assessment/Plan - Problem List (1) Duodenal ulcer with hemorrhage Impression: Patient presented to the emergency department after 3-4 days of abdominal pain, nausea and body aches. The patient took ibuprofen 400 mg 4 doses 3 days ago. After this the patient's symptoms have become worse with increasing abdominal pain and nausea. Early this morning the patient became dizzy and fell to the floor. The patient continued to remain dizzy and had a bowel movement filled with black and bloody stools as well as clots. The patient also found that his dressing around his PEG tube was soaked in blood-tinged material. On presentation to the emergency department the patient was hypotensive and appeared pale. Patient's hemoglobin dropped from 12.8 in August 2017 down to 10.0 on admission. The patient had no further episodes of bleeding in the emergency department however was having vomiting with dark emesis. He dropped to 7 gram once he was admitted and transfused 2 units. After those 2 units still 6 grams Hgb and had more bloody stool. Transfused 2 more units. Taken to OR for EGD and large arterial duodenal bleed. After recover in the PACU, he returned to the ICU. This am still with anemia. Plan: 2 large-bore IVs Continue H&H every 6 for 24 more hours and plan for total of 48 more hours here. Today is 24 hours and tomorrow 48. Transfuse if hemoglobin drops below 7 or if patient continues to be hypotensive with significant drop in hemoglobin. He dropped again this am and is being transfused units #5 and #6. IV fluids IV Protonix twice daily to continue N.p.o. until tomorrow am, then resume tube feeds. Added carafate slurry Surgery wants to see him in 6 weeks and repeat scope in 8 weeks Avoid NSAIDs, blood thinners and aspirin forever. Qualifiers: GI bleed type/associated pathology: melena Qualified Code(s): K92.1 - Melena (2) Hyperglycemia Conclusion/Plan: On presentation to the emergency department the patient blood glucose is elevated at 153. The patient does have a family history of diabetes. The patient's blood glucose may be elevated secondary to stress response due to ongoing GI bleed. Repeat was 134 and A1c was 5.4% (2) GI bleeding Qualifiers: Qualified Code(s): K92.1 - Melena (3) Achalasia of esophagus Impression: The patient has a history of esophageal dysmotility for which he has a PEG tube. The patient gets PEG tube feedings. We will resume the patient's PEG tube feedings once surgery clears him to start diet.Right now he is getting clear liquids only to swish in his mouth and then spit out. For the most part he is n.p.o. We will resume tube feedings, hopefully, tomorrow morning. (4) Peritoneal free air Impression: This was noted last night on a plain film. The plain film was done because of his history of chest pain. So far this morning he has normal bowel sounds. Has flatus. Generalized tenderness around the PEG tube not epigastrium. No fever. General surgery has started empiric antibiotics. CT the abdomen ordered for follow-up.Free air is seen under the diaphragm on both sides. Patient at this time is asymptomatic. No fever, no elevated white cell count, passing flatus. Minimal pain only at the PEG tube site. Continue to monitor. General surgery is seeing the patient. (5) Abnormal CT scan, lung Impression: Consolidation is seen on the CT of the abdomen. He is already on Zosyn for the abdominal free air. Suspect atelectasis. So far no hypoxia, no fever, no elevated white cell count. So while there are abnormal lung scan findings, I am not ready to call it pneumonia yet.
[2018-02-05] MEDS: POLYETHYLENE GLYCOL 3350 17 GM PACKET PO SCH (08:55)
[2018-02-05] MEDS: PANTOPRAZOLE 40 MG VIAL IVP SCH ×2 (09:08→21:25)
--- NOTE | 2018-02-05 11:14 | CT Report ---
Procedure Date: 02/05/2018 Accession Number: [id number] / [id number] Procedure: CT - Abdomen W/O CPT Code: FULL RESULT: EXAM: Abdomen W/O DATE: 02/05/2018 8:38 AM CLINICAL HISTORY: air under diaphragm COMPARISON: CT abdomen pelvis 10/30/2016. TECHNIQUE: Routine helical CT imaging was performed through the abdomen. IV contrast: None. Enteric contrast: None.. Reconstruction: Coronal and sagittal. In accordance with CT protocol optimization, one or more of the following dose reduction techniques were utilized for this exam: automated exposure control, adjustment of mA and/or KV based on patient size, or use of iterative reconstructive technique. FINDINGS: Consolidation at the right lung base. There is fluid-filled dilation of the lower thoracic esophagus with a caliber similar to 2017 but increased wall thickening. There is pneumoperitoneum including gas tracking along the falciform ligament, hepatic hilum and a small amount of retroperitoneal gas best demonstrated along the spleen. A mild amount of pericholecystic fluid and stranding is noted, nonspecific in the absence of contrast. The patient is status post gastric feeding tube as well as right lower quadrant abdominal wall surgery. The noncontrast liver, spleen, adrenal glands, kidneys and pancreas appear otherwise within normal limits with the exception of a nonobstructing right renal calculus. IMPRESSION: Pneumoperitoneum. Consolidation at the right lung base. Dilated fluid-filled esophagus as described. Small amount of fluid and stranding and pericholecystic distribution, nonspecific in this setting. RADIA
[2018-02-05 12:15] LABS: BASOPHILS # (AUTO) 0.1 10^3/uL (0.0-0.1); BASOPHILS % (AUTO) 0.6 %; EOSINOPHILS # (AUTO) 0.1 10^3/uL (0.0-0.7); EOSINOPHILS % (AUTO) 1.2 %; LYMPHOCYTES # (AUTO) 2.6 10^3/uL (1.5-3.5); LYMPHOCYTES % (AUTO) 27.6 %; MEAN CORPUSCULAR HEMOGLOBIN 30.9 pg (27.0-31.0); MEAN CORPUSCULAR VOLUME 90.8 fL (80.0-94.0); MONOCYTES # (AUTO) 0.7 10^3/uL (0.0-1.0); MONOCYTES % (AUTO) 7.2 %; NEUTROPHILS # (AUTO) 5.9 10^3/uL (1.5-6.6); NEUTROPHILS % (AUTO) 63.4 %; PLT - PLATELET COUNT 111 10^3/uL (130-450); RED BLOOD COUNT 2.92 10^6/uL (4.70-6.10); RED CELL DISTRIBUTION WIDTH 14.4 % (12.0-15.0); WHITE BLOOD COUNT 9.3 x10^3/uL (4.8-10.8)
[2018-02-05 16:10] LABS: BASOPHILS # (AUTO) 0.1 10^3/uL (0.0-0.1); BASOPHILS % (AUTO) 1.1 %; EOSINOPHILS # (AUTO) 0.1 10^3/uL (0.0-0.7); EOSINOPHILS % (AUTO) 1.4 %; LYMPHOCYTES # (AUTO) 2.4 10^3/uL (1.5-3.5); LYMPHOCYTES % (AUTO) 26.9 %; MEAN CORPUSCULAR HEMOGLOBIN 30.4 pg (27.0-31.0); MEAN CORPUSCULAR HGB CONC 34.3 g/dL (32.0-36.0); MEAN CORPUSCULAR VOLUME 88.7 fL (80.0-94.0); MEAN PLATELET VOLUME 8.5 fL (7.4-11.4); MONOCYTES # (AUTO) 0.6 10^3/uL (0.0-1.0); MONOCYTES % (AUTO) 6.7 %; NEUTROPHILS # (AUTO) 5.7 10^3/uL (1.5-6.6); NEUTROPHILS % (AUTO) 63.9 %; PLT - PLATELET COUNT 125 10^3/uL (130-450); RED BLOOD COUNT 2.97 10^6/uL (4.70-6.10); RED CELL DISTRIBUTION WIDTH 14.2 % (12.0-15.0); WHITE BLOOD COUNT 8.9 x10^3/uL (4.8-10.8)
[2018-02-05] MEDS: SODIUM CHLORIDE FLUSH 0.9% 10 ML SYRINGE IVP PRN (21:25)
[2018-02-05] MEDS ORDERED: diphenhydrAMINE INJ 50 MG/ML VIAL ONE (21:33)
[2018-02-05 22:20] LABS: BASOPHILS # (AUTO) 0.1 10^3/uL (0.0-0.1); BASOPHILS % (AUTO) 0.9 %; EOSINOPHILS # (AUTO) 0.1 10^3/uL (0.0-0.7); EOSINOPHILS % (AUTO) 1.7 %; HGB - HEMOGLOBIN 8.5 g/dL (14.0-18.0); LYMPHOCYTES # (AUTO) 2.8 10^3/uL (1.5-3.5); LYMPHOCYTES % (AUTO) 34.7 %; MEAN CORPUSCULAR HEMOGLOBIN 30.8 pg (27.0-31.0); MEAN CORPUSCULAR VOLUME 90.8 fL (80.0-94.0); MEAN PLATELET VOLUME 8.2 fL (7.4-11.4); MONOCYTES # (AUTO) 0.7 10^3/uL (0.0-1.0); MONOCYTES % (AUTO) 8.3 %; NEUTROPHILS # (AUTO) 4.4 10^3/uL (1.5-6.6); NEUTROPHILS % (AUTO) 54.4 %; PLT - PLATELET COUNT 114 10^3/uL (130-450); RED BLOOD COUNT 2.74 10^6/uL (4.70-6.10); RED CELL DISTRIBUTION WIDTH 14.3 % (12.0-15.0); WHITE BLOOD COUNT 8.1 x10^3/uL (4.8-10.8)
[2018-02-06] MEDS: PIPERACILLIN/TAZOBACTAM 3.375 GM in SODIUM CHLORIDE 0.9% MINIBAG 100 ML IV SCH ×4 (00:10→18:35)
[2018-02-06] MEDS: MORPHINE 2 MG/ML SYRINGE IVP PRN ×4 (02:28→20:56)
[2018-02-06] MEDS: SODIUM CHLORIDE FLUSH 0.9% 10 ML SYRINGE IVP SCH ×3 (02:31→18:32)
[2018-02-06] MEDS: SODIUM CHLORIDE 0.9% 1,000 ML IV SCH ×2 (03:45→16:18)
[2018-02-06 04:50] LABS: ALBUMIN/GLOBULIN RATIO 0.9 (1.0-2.2); BILIRUBIN,TOTAL 0.8 mg/dL (0.2-1.0); CALCIUM 7.6 mg/dL (8.5-10.3); CREATININE 0.6 mg/dL (0.6-1.2); TOTAL PROTEIN 4.3 g/dL (6.7-8.2)
[2018-02-06] MEDS ORDERED: POTASSIUM CHLORIDE 20 MEQ/15 ML UDC PO ONE (06:00)
[2018-02-06] MEDS: SUCRALFATE 1 GM/10 ML UDC GT SCH ×4 (06:35→22:35)
[2018-02-06 07:18] LABS: BASOPHILS # (AUTO) 0.1 10^3/uL (0.0-0.1); BASOPHILS % (AUTO) 0.9 %; EOSINOPHILS # (AUTO) 0.2 10^3/uL (0.0-0.7); EOSINOPHILS % (AUTO) 2.7 %; HGB - HEMOGLOBIN 8.3 g/dL (14.0-18.0); LYMPHOCYTES # (AUTO) 2.4 10^3/uL (1.5-3.5); LYMPHOCYTES % (AUTO) 37.3 %; MEAN CORPUSCULAR HEMOGLOBIN 31.1 pg (27.0-31.0); MEAN CORPUSCULAR HGB CONC 33.7 g/dL (32.0-36.0); MEAN CORPUSCULAR VOLUME 92.1 fL (80.0-94.0); MEAN PLATELET VOLUME 9.2 fL (7.4-11.4); MONOCYTES # (AUTO) 0.5 10^3/uL (0.0-1.0); MONOCYTES % (AUTO) 7.8 %; NEUTROPHILS # (AUTO) 3.3 10^3/uL (1.5-6.6); NEUTROPHILS % (AUTO) 51.3 %; PLT - PLATELET COUNT 124 10^3/uL (130-450); RED BLOOD COUNT 2.66 10^6/uL (4.70-6.10); RED CELL DISTRIBUTION WIDTH 14.6 % (12.0-15.0); WHITE BLOOD COUNT 6.5 x10^3/uL (4.8-10.8)
[2018-02-06] MEDS: POLYETHYLENE GLYCOL 3350 17 GM PACKET PO SCH (08:55)
[2018-02-06] MEDS: PANTOPRAZOLE 40 MG VIAL IVP SCH ×2 (08:55→21:17)
[2018-02-06] MEDS: diphenhydrAMINE INJ 50 MG/ML VIAL IVP PRN (22:46)
[2018-02-07] MEDS: MORPHINE 2 MG/ML SYRINGE IVP PRN ×2 (00:12→12:49)
[2018-02-07] MEDS: PIPERACILLIN/TAZOBACTAM 3.375 GM in SODIUM CHLORIDE 0.9% MINIBAG 100 ML IV SCH ×5 (00:12→23:40)
[2018-02-07] MEDS: SODIUM CHLORIDE FLUSH 0.9% 10 ML SYRINGE IVP SCH ×2 (01:26→19:39)
[2018-02-07] MEDS ORDERED: SODIUM CHLORIDE 0.9% 0 ML IV ONE (04:46)
[2018-02-07 05:04] LABS: BASOPHILS # (AUTO) 0.1 10^3/uL (0.0-0.1); BASOPHILS % (AUTO) 0.8 %; EOSINOPHILS # (AUTO) 0.2 10^3/uL (0.0-0.7); EOSINOPHILS % (AUTO) 3.4 %; HGB - HEMOGLOBIN 8.4 g/dL (14.0-18.0); LYMPHOCYTES % (AUTO) 27.2 %; MEAN CORPUSCULAR HEMOGLOBIN 31.1 pg (27.0-31.0); MEAN CORPUSCULAR HGB CONC 33.7 g/dL (32.0-36.0); MEAN CORPUSCULAR VOLUME 92.2 fL (80.0-94.0); MEAN PLATELET VOLUME 8.7 fL (7.4-11.4); MONOCYTES # (AUTO) 0.7 10^3/uL (0.0-1.0); MONOCYTES % (AUTO) 9.4 %; NEUTROPHILS # (AUTO) 4.3 10^3/uL (1.5-6.6); NEUTROPHILS % (AUTO) 59.2 %; PLT - PLATELET COUNT 142 10^3/uL (130-450); RED BLOOD COUNT 2.69 10^6/uL (4.70-6.10); RED CELL DISTRIBUTION WIDTH 14.4 % (12.0-15.0); WHITE BLOOD COUNT 7.2 x10^3/uL (4.8-10.8)
[2018-02-07 05:12] LABS: ALBUMIN 2.2 g/dL (3.2-5.5); ALBUMIN/GLOBULIN RATIO 0.8 (1.0-2.2); BILIRUBIN,TOTAL 0.5 mg/dL (0.2-1.0); CALCIUM 7.7 mg/dL (8.5-10.3); CREATININE 0.6 mg/dL (0.6-1.2); TOTAL PROTEIN 4.8 g/dL (6.7-8.2)
[2018-02-07] MEDS: SUCRALFATE 1 GM/10 ML UDC GT SCH ×4 (07:32→22:54)
--- NOTE | 2018-02-07 08:19 | PROVIDER PROGRESS NOTE ---
Subjective - Prog Note Date Prog Note Date: 02/06/18 Prog Note Time: 10:00 - Subjective Pt reports feeling: Improved Subjective: This is a late entry progress note. Patient was seen and examined but note not entered until the next day. He is up and about in his room. Taking care of his personal hygiene. There is no shortness of breath, no ataxia, no dizziness. He has been walking the hallways. He just had a bowel movement and nursing showed it to me. It is a dark oily red liquid bowel movement. There is no abdominal pain, none of the usual orthostatic flushing, near-syncope he feels when he is actively bleeding. Objective - Vital Signs/Intake & Output Reviewed Vital Signs: Yes Vital Signs: Selected Entries 02/06/18 09:25 Temperature 36.5 C Heart Rate [ 53 L Brachial] Respiratory 20 Rate Blood Pressure 98/65 [Right Brachial artery] O2 Saturation 100 Vital Signs x48h Temp Pulse Resp BP Pulse Ox 02/07/18 05:00 36.8 C 55 L 14 96/58 L 94 02/07/18 01:00 36.7 C 57 L 19 89/56 L 97 Intake & Output: Intake & Output 02/04/18 02/05/18 02/06/18 02/07/18 23:59 23:59 23:59 23:59 Intake Total 5416.667 3416.165 3004.403 1929.73 Output Total 1300 1170 1775 950 Balance 4116.667 2246.165 1229.403 979.73 - Objective General Appearance: positive: No acute distress, Alert, Other (Slender male who looks stated age) Eyes Bilateral: positive: PERRL ENT: positive: Pharynx nml Neck: positive: No JVD. negative: Stiff neck, Carotid bruit Respiratory: positive: Chest non-tender. negative: Wheezes, Rales, Rhonchi Cardiovascular: positive: Regular rate & rhythm. negative: Gallop/S4, Friction rub Abdomen: positive: Non-tender, Nml bowel sounds, No distention, Other (He is having flatus And the PEG tube is in place in the central abdomen. Above the umbilicus. Surrounding skin is without erythema, fluctuance or drainage). negative: Guarding, Rebound Skin: positive: Warm, Dry Extremities: positive: Full ROM, No pedal edema Neurologic/Psychiatric: positive: Oriented x3, CN's nml (2-12), Motor nml - Lab Results Fish Bones: 02/07/18 04:30 02/07/18 04:30 Other Labs: Laboratory Tests 02/06/18 02/06/18 04:15 04:15 WBC 6.5 Hgb 8.3 L Hct 24.5 L Plt Count 124 L Sodium 140 Potassium 3.1 L Chloride 113 H Carbon Dioxide 22 Anion Gap 5.0 L BUN 18 Creatinine 0.6 Calcium 7.6 L Lab Results x24hrs 02/07/18 02/07/18 Range/Units 04:30 04:30 WBC 7.2 (4.8-10.8) x10^3/uL RBC 2.69 L (4.70-6.10) 10^6/uL Hgb 8.4 L (14.0-18.0) g/dL Hct 24.8 L (42.0-52.0) % MCV 92.2 (80.0-94.0) fL MCH 31.1 H (27.0-31.0) pg MCHC 33.7 (32.0-36.0) g/dL RDW 14.4 (12.0-15.0) % Plt Count 142 (130-450) 10^3/uL MPV 8.7 (7.4-11.4) fL Neut # (Auto) 4.3 (1.5-6.6) 10^3/uL Lymph # (Auto) 2.0 (1.5-3.5) 10^3/uL Coffee # (Auto) 0.7 (0.0-1.0) 10^3/uL Eos # (Auto) 0.2 (0.0-0.7) 10^3/uL Baso # (Auto) 0.1 (0.0-0.1) 10^3/uL Absolute Nucleated RBC 0.00 x10^3/uL Nucleated RBC % 0.0 /100WBC Sodium 141 (135-145) mmol/L Potassium 3.3 L (3.5-5.0) mmol/L Chloride 114 H (101-111) mmol/L Carbon Dioxide 23 (21-32) mmol/L Anion Gap 4.0 L (6-13) BUN 16 (6-20) mg/dL Creatinine 0.6 (0.6-1.2) mg/dL Estimated GFR (MDRD) 141 (>89) Glucose 102 H (70-100) mg/dL Calcium 7.7 L (8.5-10.3) mg/dL Total Bilirubin 0.5 (0.2-1.0) mg/dL AST 20 (10-42) IU/L ALT 13 (10-60) IU/L Alkaline Phosphatase 40 L (42-121) IU/L Total Protein 4.8 L (6.7-8.2) g/dL Albumin 2.2 L (3.2-5.5) g/dL Globulin 2.6 (2.1-4.2) g/dL Albumin/Globulin Ratio 0.8 L (1.0-2.2) ABX Reporting Has patient been on IV antibiotics over the past 48 hours?: No Assessment/Plan - Problem List (1) Duodenal ulcer with hemorrhage Impression: Patient presented to the emergency department after 3-4 days of abdominal pain, nausea and body aches. The patient took ibuprofen 400 mg 4 doses 3 days ago. After this the patient's symptoms have become worse with increasing abdominal pain and nausea. Early on morning of admission, the patient became dizzy and fell to the floor. The patient continued to remain dizzy and had a bowel movement filled with black and bloody stools as well as clots. The patient also found that his dressing around his PEG tube was soaked in blood-tinged material. On presentation to the emergency department the patient was hypotensive and appeared pale. Patient's hemoglobin dropped from 12.8 in August 2017 down to 10.0 on admission. The patient had no further episodes of bleeding in the emergency department however was having vomiting with dark emesis. He dropped to 7 gram once he was admitted and transfused 2 units. After those 2 units still 6 grams Hgb and had more bloody stool. Transfused 2 more units. Taken to OR for EGD and large arterial duodenal bleed. After recover in the PACU, he returned to the ICU. 02/05 still with anemia and transfused unit #5 and #6. Plan: 2 large-bore IVs Continue H&H check but drop to bid frequency Although he has had a bloody BM, BP is stable, Hgb stable. Was to go home today, but will keep until we are sure no more bloody BM. Transfuse if hemoglobin drops below 7 or if patient continues to be hypotensive with significant drop in hemoglobin. IV fluids IV Protonix twice daily to continue N.p.o. until now, will resume tube feeds this am. Added carafate slurry Surgery wants to see him in 6 weeks and repeat scope in 8 weeks Avoid NSAIDs, blood thinners and aspirin forever. Qualifiers: GI bleed type/associated pathology: melena Qualified Code(s): K92.1 - Melena (2) Hyperglycemia Conclusion/Plan: On presentation to the emergency department the patient blood glucose is elevated at 153. The patient does have a family history of diabetes. The patient's blood glucose may be elevated secondary to stress response due to ongoing GI bleed. Repeat was 134 and A1c was 5.4% (3) Achalasia of esophagus Impression: The patient has a history of esophageal dysmotility for which he has a PEG tube. The patient gets PEG tube feedings. We will resume the patient's PEG tube feedings once surgery clears him to start diet.Right now he is getting clear liquids only to swish in his mouth and then spit out. For the most part he is n.p.o. We will resume tube feedings and have nutrition service (4) Peritoneal free air Impression: This was noted after EGD on CXR done for chest pain. So far, he has had normal bowel sounds. Has flatus. Generalized tenderness around the PEG tube not epigastrium. No fever. General surgery has started empiric antibiotics. CT the abdomen ordered for follow-up was done and Free air is seen under the diaphragm on both sides. Patient at this time is asymptomatic. No fever, no elevated white cell count, passing flatus. Minimal pain only at the PEG tube site. Continue to monitor. General surgery is seeing the patient. (5) Abnormal CT scan, lung Impression: Consolidation is seen on the CT of the abdomen. He is already on Zosyn for the abdominal free air. Suspect atelectasis. So far no hypoxia, no fever, no elevated white cell count. So while there are abnormal lung scan findings, I am not ready to call it pneumonia yet.
[2018-02-07] MEDS: POTASSIUM CHLORIDE 20 MEQ/15 ML UDC PO SCH (09:55)
[2018-02-07] MEDS: POLYETHYLENE GLYCOL 3350 17 GM PACKET PO SCH (09:56)
[2018-02-07] MEDS: PANTOPRAZOLE 40 MG VIAL IVP SCH ×2 (09:57→21:22)
--- NOTE | 2018-02-07 12:34 | PROVIDER PROGRESS NOTE ---
Subjective - Prog Note Date Prog Note Date: 02/07/18 Prog Note Time: 12:27 - Subjective Subjective: He continues to have small oily liquid stool that are oily black red. But no abdominal pain. Having flatus. Flatus is decreased over the last 12-18 hours. No fever. No dizziness, no lightheadedness. He is tolerating the tube feeds quite well. Current Medications - Current Medications Current Medications: Active Medications Diphenhydramine HCl (Benadryl Inj) 25 mg IVP 2200 PRN PRN Reason: Insomnia Last Admin: 02/06/18 22:46 Dose: 25 mg Piperacillin Sod/Tazobactam (Sod 3.375 gm/ Sodium Chloride) 100 mls @ 200 mls/ hr IV Q6HR [facility] Last Admin: 02/07/18 12:24 Dose: 200 mls/hr Morphine Sulfate (Morphine) 2 mg IVP Q2H PRN PRN Reason: PAIN Last Admin: 02/07/18 00:12 Dose: 2 mg Ondansetron HCl (Zofran Inj) 4 mg IVP Q6HR PRN PRN Reason: Nausea / Vomiting Pantoprazole Sodium (Protonix) 40 mg IVP BID [facility] Last Admin: 02/07/18 09:57 Dose: 40 mg Polyethylene Glycol (Miralax) 17 gm PO DAILY [facility] Last Admin: 02/07/18 09:56 Dose: 17 gm Potassium Chloride () 40 meq PO DAILYWM [facility] Last Admin: 02/07/18 09:55 Dose: 40 meq Prochlorperazine Edisylate (Compazine Inj) 10 mg IVP Q6HR PRN PRN Reason: Nausea / Vomiting Promethazine HCl (Phenergan Inj) 25 mg IM Q6HR PRN PRN Reason: Nausea / Vomiting Sodium Chloride (Normal Saline Flush 0.9%) 10 ml IVP PRN PRN PRN Reason: NEEDED PER PROVIDER ORDERS Last Admin: 02/05/18 21:25 Dose: 10 ml Sodium Chloride (Normal Saline Flush 0.9%) 10 ml IVP 0100,0900,1700 [facility] Last Admin: 02/07/18 01:26 Dose: Not Given Sucralfate (Carafate) 1 gm GT 0700,1100,1600,2200 [facility] Last Admin: 02/07/18 11:12 Dose: 1 gm Ferrous Sulfate 5 ml PEG DAILY 02/04/18 Jevity 6 bottle PEG DAILY 02/04/18 Objective - Vital Signs/Intake & Output Reviewed Vital Signs: Yes Vital Signs: Vital Signs x48h Temp Pulse Resp BP Pulse Ox 02/07/18 09:00 63 17 100/60 02/07/18 05:00 36.8 C 55 L 14 96/58 L 94 Intake & Output: Intake & Output 02/04/18 02/05/18 02/06/18 02/07/18 23:59 23:59 23:59 23:59 Intake Total 5416.667 3416.165 3004.403 2564.73 Output Total 1300 1170 1775 1250 Balance 4116.667 2246.165 4221.543 6598.73 - Objective General Appearance: positive: No acute distress, Alert, Other (Slender male, laying comfortably in bed, no acute distress, tolerating tube feeds well) Eyes Bilateral: positive: PERRL, EOMI ENT: positive: Pharynx nml Neck: positive: No JVD. negative: Stiff neck, Carotid bruit Respiratory: positive: Chest non-tender. negative: Wheezes, Rales, Rhonchi Cardiovascular: positive: Regular rate & rhythm. negative: Systolic murmur, Gallop/S4, Friction rub Abdomen: positive: Non-tender, No organomegaly, Nml bowel sounds, No distention Skin: positive: Warm, Dry Extremities: positive: Full ROM, No pedal edema Neurologic/Psychiatric: positive: Oriented x3, CN's nml (2-12), Motor nml - Lab Results Fish Bones: 02/07/18 04:30 02/07/18 04:30 Other Labs: Lab Results x24hrs 02/07/18 02/07/18 Range/Units 04:30 04:30 WBC 7.2 (4.8-10.8) x10^3/uL RBC 2.69 L (4.70-6.10) 10^6/uL Hgb 8.4 L (14.0-18.0) g/dL Hct 24.8 L (42.0-52.0) % MCV 92.2 (80.0-94.0) fL MCH 31.1 H (27.0-31.0) pg MCHC 33.7 (32.0-36.0) g/dL RDW 14.4 (12.0-15.0) % Plt Count 142 (130-450) 10^3/uL MPV 8.7 (7.4-11.4) fL Neut # (Auto) 4.3 (1.5-6.6) 10^3/uL Lymph # (Auto) 2.0 (1.5-3.5) 10^3/uL [place] # (Auto) 0.7 (0.0-1.0) 10^3/uL Eos # (Auto) 0.2 (0.0-0.7) 10^3/uL Baso # (Auto) 0.1 (0.0-0.1) 10^3/uL Absolute Nucleated RBC 0.00 x10^3/uL Nucleated RBC % 0.0 /100WBC Sodium 141 (135-145) mmol/L Potassium 3.3 L (3.5-5.0) mmol/L Chloride 114 H (101-111) mmol/L Carbon Dioxide 23 (21-32) mmol/L Anion Gap 4.0 L (6-13) BUN 16 (6-20) mg/dL Creatinine 0.6 (0.6-1.2) mg/dL Estimated GFR (MDRD) 141 (>89) Glucose 102 H (70-100) mg/dL Calcium 7.7 L (8.5-10.3) mg/dL Total Bilirubin 0.5 (0.2-1.0) mg/dL AST 20 (10-42) IU/L ALT 13 (10-60) IU/L Alkaline Phosphatase 40 L (42-121) IU/L Total Protein 4.8 L (6.7-8.2) g/dL Albumin 2.2 L (3.2-5.5) g/dL Globulin 2.6 (2.1-4.2) g/dL Albumin/Globulin Ratio 0.8 L (1.0-2.2) ABX Reporting Has patient been on IV antibiotics over the past 48 hours?: Yes Assessment/Plan - Problem List (1) Duodenal ulcer with hemorrhage Impression: Patient presented to the emergency department after 3-4 days of abdominal pain, nausea and body aches. The patient took ibuprofen 400 mg 4 doses 3 days ago. After this the patient's symptoms have become worse with increasing abdominal pain and nausea. Early this morning the patient became dizzy and fell to the floor. The patient continued to remain dizzy and had a bowel movement filled with black and bloody stools as well as clots. The patient also found that his dressing around his PEG tube was soaked in blood-tinged material. On presentation to the emergency department the patient was hypotensive and appeared pale. Patient's hemoglobin dropped from 12.8 in August 2017 down to 10.0 on admission. The patient had no further episodes of bleeding in the emergency department however was having vomiting with dark emesis. He dropped to 7 gram once he was admitted and transfused 2 units. After those 2 units still 6 grams Hgb and had more bloody stool. Transfused 2 more units. Taken to OR for EGD and large arterial duodenal bleed. After recover in the PACU, he returned to the ICU. 02/06 am still with anemia and transfused #5 and #6 yesterday. Plan: 2 large-bore IVs Continue H&H bid for more 24 hours. Today is 24 hours and tomorrow 48 per General Surgeon. If stable tomorrow, can go home in am. Transfuse if hemoglobin drops below 7 or if patient continues to be hypotensive with significant drop in hemoglobin. IV fluids stopped since he is now on tube feeds. IV Protonix twice daily to continue Added carafate slurry Surgery wants to see him in 6 weeks and repeat scope in 8 weeks Avoid NSAIDs, blood thinners and aspirin forever. Qualifiers: GI bleed type/associated pathology: melena Qualified Code(s): K92.1 - Melena (2) Hyperglycemia Conclusion/Plan: On presentation to the emergency department the patient blood glucose is elevated at 153. The patient does have a family history of diabetes. The patient's blood glucose may be elevated secondary to stress response due to ongoing GI bleed. Repeat was 134 and A1c was 5.4% (3) Achalasia of esophagus Impression: The patient has a history of esophageal dysmotility for which he has a PEG tube. The patient gets PEG tube feedings. We resumed tube feeds yesterday and he continues his chewing and putting food in his mouth and then spitting it out. He does it for the taste. (4) Peritoneal free air Impression: This was noted on CXR after his EGD. The plain film was done because of his history of chest pain. So far he continues to have normal bowel sounds. Has flatus. Generalized tenderness around the PEG tube not epigastrium. No fever. General surgery has started empiric antibiotics. CT the abdomen ordered for follow-up and it showed free air is seen under the diaphragm on both sides. Patient at this time is asymptomatic. No fever, no elevated white cell count, passing flatus. Minimal pain only at the PEG tube site. Continue to monitor. General surgery is seeing the patient. (5) Abnormal CT scan, lung Impression: Consolidation is seen on the CT of the abdomen. He is already on Zosyn for the abdominal free air. Suspect atelectasis. So far no hypoxia, no fever, no elevated white cell count. So while there are abnormal lung scan findings, I am not ready to call it pneumonia yet.
[2018-02-07 16:05] LABS: BASOPHILS # (AUTO) 0.1 10^3/uL (0.0-0.1); BASOPHILS % (AUTO) 0.9 %; EOSINOPHILS # (AUTO) 0.2 10^3/uL (0.0-0.7); EOSINOPHILS % (AUTO) 3.5 %; HGB - HEMOGLOBIN 8.4 g/dL (14.0-18.0); LYMPHOCYTES # (AUTO) 2.2 10^3/uL (1.5-3.5); LYMPHOCYTES % (AUTO) 31.6 %; MEAN CORPUSCULAR HEMOGLOBIN 30.8 pg (27.0-31.0); MEAN CORPUSCULAR HGB CONC 33.3 g/dL (32.0-36.0); MEAN CORPUSCULAR VOLUME 92.5 fL (80.0-94.0); MEAN PLATELET VOLUME 8.5 fL (7.4-11.4); MONOCYTES # (AUTO) 0.5 10^3/uL (0.0-1.0); MONOCYTES % (AUTO) 7.7 %; NEUTROPHILS # (AUTO) 3.9 10^3/uL (1.5-6.6); NEUTROPHILS % (AUTO) 56.3 %; PLT - PLATELET COUNT 162 10^3/uL (130-450); RED BLOOD COUNT 2.74 10^6/uL (4.70-6.10); RED CELL DISTRIBUTION WIDTH 14.3 % (12.0-15.0); WHITE BLOOD COUNT 6.9 x10^3/uL (4.8-10.8)
[2018-02-07] MEDS: SODIUM CHLORIDE 0.9% 1,000 ML IV SCH (21:22)
[2018-02-07 22:06] LABS: BASOPHILS # (AUTO) 0.1 10^3/uL (0.0-0.1); EOSINOPHILS # (AUTO) 0.2 10^3/uL (0.0-0.7); EOSINOPHILS % (AUTO) 2.7 %; LYMPHOCYTES # (AUTO) 1.5 10^3/uL (1.5-3.5); LYMPHOCYTES % (AUTO) 19.1 %; MEAN CORPUSCULAR HEMOGLOBIN 31.1 pg (27.0-31.0); MEAN CORPUSCULAR HGB CONC 33.5 g/dL (32.0-36.0); MEAN CORPUSCULAR VOLUME 92.7 fL (80.0-94.0); MEAN PLATELET VOLUME 8.3 fL (7.4-11.4); MONOCYTES # (AUTO) 0.6 10^3/uL (0.0-1.0); MONOCYTES % (AUTO) 7.5 %; NEUTROPHILS # (AUTO) 5.5 10^3/uL (1.5-6.6); NEUTROPHILS % (AUTO) 69.7 %; PLT - PLATELET COUNT 140 10^3/uL (130-450); RED BLOOD COUNT 2.15 10^6/uL (4.70-6.10); RED CELL DISTRIBUTION WIDTH 14.3 % (12.0-15.0); WHITE BLOOD COUNT 7.9 x10^3/uL (4.8-10.8)
[2018-02-07 22:07] LABS: HGB - HEMOGLOBIN 6.7 g/dL (14.0-18.0)
[2018-02-07] MEDS ORDERED: SODIUM CHLORIDE 0.9% 1,000 ML IV ONE ×2 (22:48→22:53)
[2018-02-07] MEDS ORDERED: OCTREOTIDE 100 MCG/ML VIAL IVP STA (22:50)
[2018-02-07] MEDS ORDERED: TRANEXAMIC ACID 1,000 MG in SODIUM CHLORIDE 0.9% 100ML 100 ML IV ONE (22:50)
--- NOTE | 2018-02-07 22:53 | PROVIDER PROGRESS NOTE ---
Cryogenics Repairer Note - Cryogenics Repairer Note Cryogenics Repairer Note: Patient having significant amount of hematemesis as well as bright red blood per rectum with clots. Patient dizzy and borderline hypotensive repeat hemoglobin is down to 6.7. Patient's G-tube was placed to suction and patient has dark bloody contents coming from the stomach. Patient appears to be having a brisk upper GI bleed likely from bleeding vessels seen on scope 2 days ago. Patient will be transfused 2 units of packed RBCs and we will repeat hemoglobin patient will likely need further transfusion. Patient will be given tranexamic acid and placed on octreotide drip per recommendations of Dr. Smith Arevalo general surgery. Dr. Arevalo will see the patient first thing in the morning and likely take him for EGD. Patient is n.p.o. and will receive IV fluids.
[2018-02-07] MEDS ORDERED: OCTREOTIDE 500 MCG in SODIUM CHLORIDE 0.9% 100ML 99 ML IV SCH (23:00)
[2018-02-07] MEDS: diphenhydrAMINE INJ 50 MG/ML VIAL IVP PRN (23:01)
[2018-02-07] MEDS ORDERED: TRANEXAMIC ACID 1,000 MG/10 ML VIAL ONE (23:29)
[2018-02-08] MEDS ORDERED: EPINEPHrine ABBOJECT 1 MG/10 ML SYRINGE IVP ONE ×3 (01:00→01:10)
[2018-02-08] MEDS ORDERED: LIDO GARGLE 30 ML BOTTLE PO ONE (01:10)
[2018-02-08] MEDS ORDERED: LIDO GARGLE 30 ML BOTTLE ONE (01:16)
[2018-02-08] MEDS ORDERED: LACTATED RINGERS 1,000 ML IV ONE ×4 (02:47→04:00)
[2018-02-08] MEDS ORDERED: SUCCINYLCHOLINE 200 MG/10 ML VIAL IVP ONE (03:00)
[2018-02-08] MEDS ORDERED: ceFAZolin 1 GM VIAL IV ONE (03:00)
[2018-02-08] MEDS ORDERED: NEOSTIGMINE 1 MG/1 ML 10 ML MDV IVP ONE (03:00)
[2018-02-08] MEDS ORDERED: LIDOCAINE-MPF 2% 5 ML VIAL IM ONE (03:00)
[2018-02-08] MEDS ORDERED: ONDANSETRON 4 MG/2 ML VIAL IVP ONE (03:00)
[2018-02-08] MEDS ORDERED: ePHEDrine 50 MG/ML VIAL IVP ONE (03:00)
[2018-02-08] MEDS ORDERED: fentaNYL 250 MCG/5 ML VIAL IVP ONE (03:00)
[2018-02-08] MEDS ORDERED: PROPOFOL 200 MG/20 ML VIAL IVP ONE (03:00)
[2018-02-08] MEDS ORDERED: GLYCOPYRROLATE 1 MG/5 ML VIAL IVP ONE (03:00)
[2018-02-08] MEDS ORDERED: ROCURONIUM 50 MG/5 ML VIAL IVP ONE (03:00)
[2018-02-08] MEDS ORDERED: fentaNYL 100 MCG/2 ML VIAL IVP ONE (03:00)
[2018-02-08] MEDS ORDERED: MIDAZOLAM 2 MG/2 ML VIAL IVP ONE (03:00)
[2018-02-08] MEDS ORDERED: LACTATED RINGERS 400 ML IV ONE (04:11)
[2018-02-08] MEDS: HYDROmorphone 2 MG/ML VIAL IVP PRN ×7 (04:24→22:24)
[2018-02-08] MEDS ORDERED: HYDROmorphone 1 MG/ML CARPUJECT ONE (04:36)
[2018-02-08] MEDS: SODIUM CHLORIDE 0.9% 1,000 ML IV SCH ×2 (04:53→13:45)
[2018-02-08] MEDS ORDERED: SODIUM CHLORIDE 0.9% MINIBAG 100 ML IV ONE (05:14)
[2018-02-08] MEDS: cefOXitin 1 GM in SODIUM CHLORIDE 0.9% MINIBAG 100 ML IV SCH ×3 (05:28→19:58)
[2018-02-08] MEDS: SODIUM CHLORIDE FLUSH 0.9% 10 ML SYRINGE IVP PRN (05:29)
[2018-02-08] MEDS: SODIUM CHLORIDE FLUSH 0.9% 10 ML SYRINGE IVP SCH ×3 (05:32→16:00)
[2018-02-08 05:42] LABS: BASOPHILS % (AUTO) 0.2 %; EOSINOPHILS % (AUTO) 0.2 %; HGB - HEMOGLOBIN 10.6 g/dL (14.0-18.0); LYMPHOCYTES # (AUTO) 0.9 10^3/uL (1.5-3.5); LYMPHOCYTES % (AUTO) 5.5 %; MEAN CORPUSCULAR HEMOGLOBIN 30.9 pg (27.0-31.0); MEAN CORPUSCULAR HGB CONC 34.4 g/dL (32.0-36.0); MEAN CORPUSCULAR VOLUME 89.7 fL (80.0-94.0); MONOCYTES # (AUTO) 0.8 10^3/uL (0.0-1.0); MONOCYTES % (AUTO) 4.9 %; NEUTROPHILS # (AUTO) 14.9 10^3/uL (1.5-6.6); NEUTROPHILS % (AUTO) 89.2 %; PLT - PLATELET COUNT 103 10^3/uL (130-450); RED BLOOD COUNT 3.43 10^6/uL (4.70-6.10); RED CELL DISTRIBUTION WIDTH 15.1 % (12.0-15.0); WHITE BLOOD COUNT 16.8 x10^3/uL (4.8-10.8)
[2018-02-08 05:44] LABS: INR 1.4 (0.8-1.2); PT - PROTHROMBIN TIME 15.1 secs (9.9-12.6)
[2018-02-08 05:53] LABS: ALBUMIN 1.7 g/dL (3.2-5.5); ALBUMIN/GLOBULIN RATIO 0.9 (1.0-2.2); BILIRUBIN,TOTAL 0.8 mg/dL (0.2-1.0); CALCIUM 6.9 mg/dL (8.5-10.3); CREATININE 0.5 mg/dL (0.6-1.2); MAGNESIUM 1.5 mg/dL (1.7-2.8); PHOSPHORUS 3.4 mg/dL (2.5-4.6); TOTAL PROTEIN 3.6 g/dL (6.7-8.2)
--- NOTE | 2018-02-08 05:56 | XRAY Report ---
Procedure Date: 02/08/2018 Accession Number: [id number] / [id number] Procedure: XR - Chest for Line Placement CPT Code: FULL RESULT: EXAM: CHEST RADIOGRAPHY EXAM DATE: 02/08/2018 04:28 AM. CLINICAL HISTORY: LINE PLACEMENT. COMPARISON: CHEST 1 VIEW 02/04/2018. TECHNIQUE: 1 view. FINDINGS: Lungs/Pleura: Small lung volumes. Bibasilar atelectasis or infiltrate. Pulmonary vascular congestion. No obvious pleural effusion. No pneumothorax. Mediastinum: Within exam limitations, the cardiomediastinal contour is normal. Other: Enteric tube extends well beyond the gastroesophageal junction. Right internal jugular sheath with the tip at the junction of the brachiocephalic veins. IMPRESSION: 1. Small lung volumes with pulmonary vascular congestion and bibasilar atelectasis or infiltrate. 2. Enteric tube extends well beyond the GE junction. 3. Right IJ sheath with the tip at the junction of the brachiocephalic veins. RADIA
[2018-02-08] MEDS ORDERED: MAGNESIUM SULFATE 2 GRAM 2 GM/50 ML BAG IV ONE (06:00)
[2018-02-08] MEDS: PANTOPRAZOLE 40 MG VIAL IVP SCH ×2 (09:38→19:57)
[2018-02-08] MEDS: POTASSIUM CHLORIDE 20 MEQ/15 ML UDC PO SCH (09:38)
[2018-02-08] MEDS: POLYETHYLENE GLYCOL 3350 17 GM PACKET PO SCH (09:38)
--- NOTE | 2018-02-08 10:00 | OPERATIVE REPORT ---
DATE OF SERVICE: 02/08/2018 Physician: Jose Daniel Arevalo MD PREOPERATIVE DIAGNOSIS: Bleeding duodenal ulcer. POSTOPERATIVE DIAGNOSES 1. Bleeding duodenal ulcer. 2. Dilated esophagus. PROCEDURES PERFORMED 1. Exploratory laparotomy. 2. Oversewing bleeding duodenal ulcer. 3. Repair of perforated duodenal ulcer. 4. Cholecystectomy. OPERATING SURGEON: Jose Daniel Arevalo MD CHILD WELFARE SPECIALIST: Nilton Frost MD ANESTHESIA: General. INDICATIONS FOR PROCEDURE: The patient is a 53-year-old male who presents with gastrointestinal bleeding. He underwent upper endoscopy 3 days prior, where he was found to have a duodenal ulcer. This ulcer had a bleeding vessel in the center. It was injected with epinephrine. He remained stable until now, where he started having hematemesis , along with blood per rectum. Because of this, he then underwent a repeat endoscopy. Attempts at controlling the vessel with clips was unsuccessful, with continued bleeding. Because of this, the patient was then operated on to control the bleeding duodenal ulcer. FINDINGS AT SURGERY: The patient had a duodenal ulcer with a visible vessel in the center. Attempts at controlling it with Hemoclips were unsuccessful. Therefore, the patient was taken to the operating room and underwent a laparotomy. He was found to have a bleeding ulcer in the duodenum. This unusual bleeding vessel was from the cystic artery. The duodenum had perforated anteriorly and formed an attachment to the triangle of Calot area. The ulcer had penetrated the tissue and went into the cystic artery, causing it to bleed. The duodenum was explored, and no other abnormalities were noted. The gallbladder was edematous in its base, and because of the arterial ligation along with the edema, the gallbladder was removed. A duodenoplasty was then used to close the opening in the duodenum. PROCEDURE: The patient had been in endoscopy, and then was then taken emergently to the operating room. He was already intubated from the EGD. The patient's abdomen was then prepped and draped in usual sterile fashion. A midline abdominal incision was then made in the skin using a scalpel. It was carried down to and through the fascial layer using electrocautery. The retractors were then placed. The stomach had an NG tube placed to try and decompress it. The first portion, or the duodenal bulb, was attached to the triangle of Calot and part of the gallbladder. This attachment or scar tissue was then divided. This was where the duodenal ulcer was located. The ulcer had perforated the duodenum and had caused bleeding of the cystic artery as it eroded through this area. A 2-0 silk suture was then used to ligate the bleeding artery. A duodenal incision was then made to the pylorus. Looking inside, no other abnormalities were noted. The ulcer was located anteriorly. With no other abnormalities being seen, a duodenoplasty was then performed. The stomach was first emptied of any blood, or as much blood as possible. The incision that was made transversely was then closed vertically using interrupted 2-0 silk sutures, taking seromuscular mucosal bites. After completing the closure, the area was tested and no leak was noted. A 19 round BRYNN drain was placed through the abdominal wall and overlying the closure. The patient had a PEG tube previously placed, and the PEG tube had been removed preoperatively. A 22 AL tube was placed through the opening and into the stomach. The abdominal cavity was then irrigated. Because of the gallbladder base being inflamed and where the artery was ligated, I could not assure that the gallbladder would not have an issue with cholecystitis ; therefore, I decided to remove the gallbladder. The gallbladder fundus was then grasped, and the gallbladder plate was then divided, removing the gallbladder from the liver. This was carried down to the triangle of Calot. Cystic artery and duct were then identified. Both structures were ligated using 3-0 silk suture, with the attachment to the gallbladder being divided. Gallbladder was then removed. The abdominal cavity was then irrigated, and no bleeding was noted. The anterior abdominal fascial layer was then closed using a running #1 PDS suture. The skin was then stapled closed. Dry dressings were then applied. The patient was then awakened, extubated, and taken from the operating room in stable condition. SPECIMENS: Gallbladder. DRAINS OR PACKS: One drain was left intra-abdominally. COMPLICATIONS: None. CONDITION OF THE PATIENT AT THE END OF THE PROCEDURE: Critical. ESTIMATED BLOOD LOSS: 1200 mL CLASSIFICATION OF WOUND: Clean, contaminated. TD: 02/08/2018 04:40 [email or web address]
[2018-02-08] MEDS: MORPHINE 2 MG/ML SYRINGE IVP PRN ×2 (12:23→17:15)
--- NOTE | 2018-02-08 12:47 | PROVIDER PROGRESS NOTE ---
Subjective - Prog Note Date Prog Note Date: 02/08/18 Prog Note Time: 12:40 - Subjective Subjective: Last night he started vomiting blood. Blood started coming out of the PEG tube. He drop his pressures. He was taken urgently to the operating room. Very unusual findings. He had perforated and anterior duodenal ulcer through to the cystic artery. That is what was bleeding. He needed 4 units of packed cells to resuscitate him in addition to the surgery. This morning he is awake, alert. Understandably disappointed in having to stay in the hospital for probably 5 more days. worried about his who is blind and has been at home without him all this time. Current Medications - Current Medications Current Medications: Active Medications Diphenhydramine HCl (Benadryl Inj) 25 mg IVP 2200 PRN PRN Reason: Insomnia Last Admin: 02/07/18 23:01 Dose: 25 mg Hydromorphone HCl (Dilaudid (Vial)) 2 mg IVP Q2H PRN PRN Reason: PAIN Last Admin: 02/08/18 06:56 Dose: 2 mg Hydromorphone HCl (Dilaudid (Vial)) 1 mg IVP Q2H PRN PRN Reason: PAIN Last Admin: 02/08/18 11:05 Dose: 1 mg Sodium Chloride (Normal Saline 0.9%) 1,000 mls @ 125 mls/hr IV .Q8H [facility] Last Infusion: 02/08/18 06:00 Dose: 125 mls/hr Cefoxitin Sodium 1 gm/ Sodium (Chloride) 100 mls @ 200 mls/hr IV Q8H [facility] Stop: 02/08/18 20:29 Last Admin: 02/08/18 12:01 Dose: 200 mls/hr Morphine Sulfate (Morphine) 2 mg IVP Q2H PRN PRN Reason: PAIN Last Admin: 02/08/18 12:23 Dose: 2 mg Ondansetron HCl (Zofran Inj) 4 mg IVP Q6HR PRN PRN Reason: Nausea / Vomiting Pantoprazole Sodium (Protonix) 40 mg IVP BID [facility] Last Admin: 02/08/18 09:38 Dose: 40 mg Polyethylene Glycol (Miralax) 17 gm PO DAILY [facility] Last Admin: 02/08/18 09:38 Dose: Not Given Potassium Chloride () 40 meq PO DAILYWM [facility] Last Admin: 02/08/18 09:38 Dose: Not Given Prochlorperazine Edisylate (Compazine Inj) 10 mg IVP Q6HR PRN PRN Reason: Nausea / Vomiting Promethazine HCl (Phenergan Inj) 25 mg IM Q6HR PRN PRN Reason: Nausea / Vomiting Sodium Chloride (Normal Saline Flush 0.9%) 10 ml IVP PRN PRN PRN Reason: NEEDED PER PROVIDER ORDERS Last Admin: 02/08/18 05:29 Dose: 30 ml Sodium Chloride (Normal Saline Flush 0.9%) 10 ml IVP 0100,0900,1700 [facility] Last Admin: 02/08/18 11:45 Dose: 20 ml Ferrous Sulfate 5 ml PEG DAILY 02/04/18 Jevity 6 bottle PEG DAILY 02/04/18 Objective - Vital Signs/Intake & Output Reviewed Vital Signs: Yes Vital Signs: Vital Signs Temp Pulse Resp BP Pulse Ox 02/08/18 12:00 37.6 C H 94 15 99/68 96 02/08/18 11:00 100 29 H 86/59 L 96 02/08/18 10:00 75 11 L 88/66 L 02/08/18 09:00 84 8 L 90/69 97 Intake & Output: Intake & Output 02/05/18 02/06/18 02/07/18 02/08/18 23:59 23:59 23:59 23:59 Intake Total 3416.165 3004.403 4454.73 1339.166 Output Total 1170 1775 3645 585 Balance 2246.165 1229.403 809.73 754.166 - Objective General Appearance: positive: No acute distress, Alert, Other (Slender 10 middle -aged male with an NG tube in place but completely appropriate, and pain is controlled.) Eyes Bilateral: positive: PERRL, EOMI ENT: positive: Pharynx nml Neck: positive: No JVD. negative: Stiff neck, Carotid bruit Respiratory: positive: Chest non-tender. negative: Wheezes, Rales, Rhonchi Cardiovascular: positive: Regular rate & rhythm, No murmur. negative: Gallop/S4 , Friction rub Abdomen: positive: Other (PEG in place. No bowel sounds. Not distended.). negative: Hepatomegaly, Splenomegaly Skin: positive: Warm, Dry Extremities: positive: Full ROM, No pedal edema Neurologic/Psychiatric: positive: Oriented x3, CN's nml (2-12), Motor nml - Lab Results Fish Bones: 02/08/18 05:07 02/08/18 05:07 Other Labs: Lab Results x24hrs 02/08/18 02/08/18 02/08/18 Range/Units 05:07 05:07 05:07 WBC 16.8 H (4.8-10.8) x10^3/uL RBC 3.43 L (4.70-6.10) 10^6/uL Hgb 10.6 L (14.0-18.0) g/dL Hct 30.8 L (42.0-52.0) % MCV 89.7 (80.0-94.0) fL MCH 30.9 (27.0-31.0) pg MCHC 34.4 (32.0-36.0) g/dL RDW 15.1 H (12.0-15.0) % Plt Count 103 L (130-450) 10^3/uL MPV 9.0 (7.4-11.4) fL Neut # (Auto) 14.9 H (1.5-6.6) 10^3/uL Lymph # (Auto) 0.9 L (1.5-3.5) 10^3/uL [place] # (Auto) 0.8 (0.0-1.0) 10^3/uL Eos # (Auto) 0.0 (0.0-0.7) 10^3/uL Baso # (Auto) 0.0 (0.0-0.1) 10^3/uL Absolute Nucleated RBC 0.00 x10^3/uL Nucleated RBC % 0.0 /100WBC PT 15.1 H (9.9-12.6) secs INR 1.4 H (0.8-1.2) Sodium 140 (135-145) mmol/L Potassium 3.9 (3.5-5.0) mmol/L Chloride 114 H (101-111) mmol/L Carbon Dioxide 23 (21-32) mmol/L Anion Gap 3.0 L (6-13) BUN 15 (6-20) mg/dL Creatinine 0.5 L (0.6-1.2) mg/dL Estimated GFR (MDRD) 174 (>89) Glucose 188 H (70-100) mg/dL Calcium 6.9 L (8.5-10.3) mg/dL Phosphorus 3.4 (2.5-4.6) mg/dL Magnesium 1.5 L (1.7-2.8) mg/dL Total Bilirubin 0.8 (0.2-1.0) mg/dL AST 30 (10-42) IU/L ALT 19 (10-60) IU/L Alkaline Phosphatase 31 L (42-121) IU/L Total Protein 3.6 L (6.7-8.2) g/dL Albumin 1.7 L (3.2-5.5) g/dL Globulin 1.9 L (2.1-4.2) g/dL Albumin/Globulin Ratio 0.9 L (1.0-2.2) Blood Type Antibody Screen Crossmatch IS Only 02/07/18 02/07/18 02/07/18 Range/Units 22:44 21:54 15:56 WBC 7.9 6.9 (4.8-10.8) x10^3/uL RBC 2.15 L 2.74 L (4.70-6.10) 10^6/uL Hgb 6.7 L* 8.4 L (14.0-18.0) g/dL Hct 19.9 L* 25.3 L (42.0-52.0) % MCV 92.7 92.5 (80.0-94.0) fL MCH 31.1 H 30.8 (27.0-31.0) pg MCHC 33.5 33.3 (32.0-36.0) g/dL RDW 14.3 14.3 (12.0-15.0) % Plt Count 140 162 (130-450) 10^3/uL MPV 8.3 8.5 (7.4-11.4) fL Neut # (Auto) 5.5 3.9 (1.5-6.6) 10^3/uL Lymph # (Auto) 1.5 2.2 (1.5-3.5) 10^3/uL [place] # (Auto) 0.6 0.5 (0.0-1.0) 10^3/uL Eos # (Auto) 0.2 0.2 (0.0-0.7) 10^3/uL Baso # (Auto) 0.1 0.1 (0.0-0.1) 10^3/uL Absolute Nucleated RBC 0.00 0.01 x10^3/uL Nucleated RBC % 0.0 0.1 /100WBC PT (9.9-12.6) secs INR (0.8-1.2) Sodium (135-145) mmol/L Potassium (3.5-5.0) mmol/L Chloride (101-111) mmol/L Carbon Dioxide (21-32) mmol/L Anion Gap (6-13) BUN (6-20) mg/dL Creatinine (0.6-1.2) mg/dL Estimated GFR (MDRD) (>89) Glucose (70-100) mg/dL Calcium (8.5-10.3) mg/dL Phosphorus (2.5-4.6) mg/dL Magnesium (1.7-2.8) mg/dL Total Bilirubin (0.2-1.0) mg/dL AST (10-42) IU/L ALT (10-60) IU/L Alkaline Phosphatase (42-121) IU/L Total Protein (6.7-8.2) g/dL Albumin (3.2-5.5) g/dL Globulin (2.1-4.2) g/dL Albumin/Globulin Ratio (1.0-2.2) Blood Type O POSITIVE Antibody Screen NEGATIVE Crossmatch IS Only See Detail Assessment/Plan - Problem List (1) Duodenal ulcer with hemorrhage Impression: Patient presented to the emergency department after 3-4 days of abdominal pain, nausea and body aches. The patient took ibuprofen 400 mg 4 doses 3 days ago. After this the patient's symptoms have become worse with increasing abdominal pain and nausea. Early this morning the patient became dizzy and fell to the floor. The patient continued to remain dizzy and had a bowel movement filled with black and bloody stools as well as clots. The patient also found that his dressing around his PEG tube was soaked in blood-tinged material. On presentation to the emergency department the patient was hypotensive and appeared pale. Patient's hemoglobin dropped from 12.8 in August 2017 down to 10.0 on admission. The patient had no further episodes of bleeding in the emergency department however was having vomiting with dark emesis. He dropped to 7 gram once he was admitted and transfused 2 units. After those 2 units still 6 grams Hgb and had more bloody stool. Transfused 2 more units. Taken to OR for EGD and large arterial duodenal bleed. After recover in the PACU, he returned to the ICU. 02/06 am still with anemia and transfused #5 and #6. He was stable on the and had been 24 hours with a stable hemoglobin at 8.48.3. He really wanted to go home but surgery felt strongly that he should stay 1 more day. Last night in the middle the night he started vomiting blood, and had to be taken urgently to the OR with hypotension. Postop day 1 for exploratory laparotomy, oversewn duodenal ulcer, repair of perforation of duodenum, and cholecystectomy. Apparently his anterior duodenal ulcer had eroded through to the cystic artery. And the cystic artery was bleeding. He needed 4 more units of blood in the OR so has had a total of 10 units so far. Plan: 2 large-bore IVs continue with a third in his neck. Continue H&H bid for more 48 hours. Transfuse if hemoglobin drops below 7 or if patient continues to be hypotensive with significant drop in hemoglobin. IV fluids stopped since he is now on tube feeds. IV Protonix twice daily to continue Carafate slurry to be held until he can resume tube feeds. PPI for 6 weeks after discharge. Avoid NSAIDs, blood thinners and aspirin forever. Qualifiers: GI bleed type/associated pathology: melena Qualified Code(s): K92.1 - Melena (2) Hyperglycemia Conclusion/Plan: On presentation to the emergency department the patient blood glucose is elevated at 153. The patient does have a family history of diabetes. The patient's blood glucose may be elevated secondary to stress response due to ongoing GI bleed. Repeat was 134 and A1c was 5.4% (3) Achalasia of esophagus Impression: The patient has a history of esophageal dysmotility for which he has a PEG tube. The patient gets PEG tube feedings. We resumed tube feeds yesterday and he continues his chewing and putting food in his mouth and then spitting it out. He does it for the taste. But today, we have held them. Surgery will hold until POD #5. then resume with Carafate slurry. He can still put clears in his mouth and spit them out. (4) Peritoneal free air Impression: This was noted on CXR after his EGD. The plain film was done because of his history of chest pain. So far he continues to have normal bowel sounds. Has flatus. Generalized tenderness around the PEG tube not epigastrium. No fever. General surgery has started empiric antibiotics. CT the abdomen ordered for follow-up and it showed free air is seen under the diaphragm on both sides. Patient at this time is asymptomatic. No fever, no elevated white cell count, passing flatus. Had Minimal pain only at the PEG tube site. In retrospect the free air was from the perforated duodenal ulcer forming (5) Abnormal CT scan, lung Impression: right lung base Consolidation is seen on the CT of the abdomen. He is already on Zosyn for the abdominal free air. Suspect atelectasis. So far no hypoxia, no fever, no elevated white cell count. So while there are abnormal lung scan findings, I am not ready to call it pneumonia yet. (6) Moderate protein-calorie malnutrition Impression: He has been losing weight over 1-2 years bc of the achalasia. Had been close to 180 in the past and is now 140. He has had less than 50% of his recommended tube feeds for over 7 days. * start TPN * order TPN lab protocol * Nutrition consult tomorrow, today is Friday and they are not here on weekends. * Surgery to release him for tube feeds on POD #6.
[2018-02-08] MEDS ORDERED: PETROLATUM WHITE 5 GM PACKET TOP PRN (14:27)
[2018-02-08] MEDS ORDERED: SODIUM CHLORIDE 0.9% 1,000 ML IV SCH (16:07)
[2018-02-08] MEDS: TPN (CLINIMIX E 5/15) 2,000 ML with MULTIVITAMIN 10 ML IV SCH ×2 (18:47)
[2018-02-08] MEDS: FAT EMULSION 20% 250 ML IV SCH (19:57)
[2018-02-08] MEDS: TRACE ELEMENTS V CONC 1 ML in SODIUM CHLORIDE 0.9% 100ML 100 ML IV SCH (20:11)
[2018-02-09] MEDS: HYDROmorphone 2 MG/ML VIAL IVP PRN ×8 (02:05→22:26)
[2018-02-09] MEDS: SODIUM CHLORIDE FLUSH 0.9% 10 ML SYRINGE IVP SCH ×3 (02:06→17:10)
[2018-02-09 06:10] LABS: BASOPHILS # (AUTO) 0.1 10^3/uL (0.0-0.1); BASOPHILS % (AUTO) 0.8 %; EOSINOPHILS # (AUTO) 0.3 10^3/uL (0.0-0.7); EOSINOPHILS % (AUTO) 2.1 %; HGB - HEMOGLOBIN 7.9 g/dL (14.0-18.0); LYMPHOCYTES # (AUTO) 2.2 10^3/uL (1.5-3.5); LYMPHOCYTES % (AUTO) 15.2 %; MEAN CORPUSCULAR HEMOGLOBIN 30.8 pg (27.0-31.0); MEAN CORPUSCULAR HGB CONC 33.2 g/dL (32.0-36.0); MEAN CORPUSCULAR VOLUME 92.7 fL (80.0-94.0); MEAN PLATELET VOLUME 9.3 fL (7.4-11.4); MONOCYTES # (AUTO) 1.1 10^3/uL (0.0-1.0); MONOCYTES % (AUTO) 7.8 %; NEUTROPHILS # (AUTO) 10.6 10^3/uL (1.5-6.6); NEUTROPHILS % (AUTO) 74.1 %; PLT - PLATELET COUNT 116 10^3/uL (130-450); RED BLOOD COUNT 2.57 10^6/uL (4.70-6.10); WHITE BLOOD COUNT 14.3 x10^3/uL (4.8-10.8)
[2018-02-09] MEDS: PANTOPRAZOLE 40 MG VIAL IVP SCH (06:23)
[2018-02-09 06:24] LABS: ALBUMIN 1.8 g/dL (3.2-5.5); ALBUMIN/GLOBULIN RATIO 0.8 (1.0-2.2); BILIRUBIN,TOTAL 0.6 mg/dL (0.2-1.0); CALCIUM 7.2 mg/dL (8.5-10.3); CREATININE 0.5 mg/dL (0.6-1.2); MAGNESIUM 1.9 mg/dL (1.7-2.8); PHOSPHORUS 1.9 mg/dL (2.5-4.6)
[2018-02-09] MEDS ORDERED: POTASSIUM PHOSPHATE 15 MMOL in SODIUM CHLORIDE 0.9% 250 ML IV ONE (06:36)
[2018-02-09 06:38] LABS: INR 1.4 (0.8-1.2); PT - PROTHROMBIN TIME 15.5 secs (9.9-12.6)
--- NOTE | 2018-02-09 07:36 | PROVIDER PROGRESS NOTE ---
Subjective - Prog Note Date Prog Note Date: 02/09/18 Prog Note Time: 07:36 - Subjective Subjective: "for what I've been thru, I feel ok" denies cp, sob. abd hurts at incision worried about his wants some ice Current Medications - Current Medications Current Medications: Active Medications Diphenhydramine HCl (Benadryl Inj) 25 mg IVP 2200 PRN PRN Reason: Insomnia Last Admin: 02/09/18 22:10 Dose: 25 mg Hydromorphone HCl (Dilaudid (Vial)) 2 mg IVP Q2H PRN PRN Reason: PAIN Last Admin: 02/09/18 06:23 Dose: 2 mg Hydromorphone HCl (Dilaudid (Vial)) 1 mg IVP Q2H PRN PRN Reason: PAIN Last Admin: 02/09/18 17:51 Dose: 1 mg Multivitamins 10 ml/ Amino Ac/ (Electrol/Dextrose/Calcium) 2,010 mls @ 83 mls/ hr IV Q24H [facility] PRN Reason: Protocol Last Infusion: 02/09/18 22:02 Dose: 83 mls/hr Fat Emulsion Intravenous (Intralipid 20%) 250 mls @ 21 mls/hr IV Q24H [facility] Last Infusion: 02/09/18 22:02 Dose: 21 mls/hr Chromium/Copper/Manganese/Seleni/Zn 1 ml/ Sodium Chloride 101 mls @ 5 mls/hr IV TPN/PPN [facility] Last Infusion: 02/09/18 22:00 Dose: 5 mls/hr Sodium Chloride (Normal Saline 0.9%) 500 mls @ 20 mls/hr IV Q24H PRN; TKO PRN Reason: TKO RATE Last Infusion: 02/09/18 18:00 Dose: 20 mls/hr Morphine Sulfate (Morphine) 2 mg IVP Q2H PRN PRN Reason: PAIN Last Admin: 02/08/18 17:15 Dose: 2 mg Ondansetron HCl (Zofran Inj) 4 mg IVP Q6HR PRN PRN Reason: Nausea / Vomiting Pantoprazole Sodium (Protonix) 40 mg IVP QDAC [facility] Last Admin: 02/09/18 06:23 Dose: 40 mg Petrolatum (Vaseline) 5 gm TOP Q4HR PRN PRN Reason: Dry Lips Prochlorperazine Edisylate (Compazine Inj) 10 mg IVP Q6HR PRN PRN Reason: Nausea / Vomiting Promethazine HCl (Phenergan Inj) 25 mg IM Q6HR PRN PRN Reason: Nausea / Vomiting Sodium Chloride (Normal Saline Flush 0.9%) 10 ml IVP PRN PRN PRN Reason: NEEDED PER PROVIDER ORDERS Last Admin: 02/08/18 05:29 Dose: 30 ml Sodium Chloride (Normal Saline Flush 0.9%) 10 ml IVP 0100,0900,1700 [facility] Last Admin: 02/09/18 17:10 Dose: 10 ml Ferrous Sulfate 5 ml PEG DAILY 02/04/18 Jevity 6 bottle PEG DAILY 02/04/18 Objective - Vital Signs/Intake & Output Reviewed Vital Signs: Yes Vital Signs: Vital Signs Pulse Resp BP Pulse Ox 02/09/18 07:00 63 14 95/53 L 92 02/09/18 06:00 60 15 96/60 93 02/09/18 05:00 61 17 87/65 L 92 02/09/18 04:00 92 24 95/58 L 95 Intake & Output: Intake & Output 02/06/18 02/07/18 02/08/18 02/09/18 23:59 23:59 23:59 23:59 Intake Total 3004.403 4454.73 3442.083 30 Output Total 1775 3645 1629 810 Balance 1229.403 809.73 1813.083 -780 - Objective General Appearance: positive: No acute distress, Alert, Other (tanned, slender male, looks tired) Eyes Bilateral: positive: PERRL ENT: positive: Pharynx nml, Other (NG in place) Neck: positive: No JVD (==) Respiratory: positive: Chest non-tender, No respiratory distress, Other (no wheezing or crackles) Cardiovascular: positive: Regular rate & rhythm, No murmur, No gallop Abdomen: positive: No organomegaly, No distention, Other (one boweel sound) Skin: positive: No rash, Warm, Dry Extremities: positive: Full ROM, No pedal edema Neurologic/Psychiatric: positive: Oriented x3, CN's nml (2-12), Motor nml - Lab Results Fish Bones: 02/09/18 13:30 02/09/18 05:33 Other Labs: Lab Results x24hrs 02/09/18 02/09/18 02/09/18 Range/Units 06:22 05:33 05:33 WBC (4.8-10.8) x10^3/uL RBC (4.70-6.10) 10^6/uL Hgb (14.0-18.0) g/dL Hct (42.0-52.0) % MCV (80.0-94.0) fL MCH (27.0-31.0) pg MCHC (32.0-36.0) g/dL RDW (12.0-15.0) % Plt Count (130-450) 10^3/uL MPV (7.4-11.4) fL Neut # (Auto) (1.5-6.6) 10^3/uL Lymph # (Auto) (1.5-3.5) 10^3/uL [place] # (Auto) (0.0-1.0) 10^3/uL Eos # (Auto) (0.0-0.7) 10^3/uL Baso # (Auto) (0.0-0.1) 10^3/uL Absolute Nucleated RBC x10^3/uL Nucleated RBC % /100WBC PT 15.5 H (9.9-12.6) secs INR 1.4 H (0.8-1.2) Sodium (135-145) mmol/L Potassium (3.5-5.0) mmol/L Chloride (101-111) mmol/L Carbon Dioxide (21-32) mmol/L Anion Gap (6-13) BUN (6-20) mg/dL Creatinine (0.6-1.2) mg/dL Estimated GFR (MDRD) (>89) Glucose (70-100) mg/dL POC Whole Bld Glucose 122 H (70 - 100) mg/dL Calcium (8.5-10.3) mg/dL Phosphorus (2.5-4.6) mg/dL Magnesium (1.7-2.8) mg/dL Total Bilirubin (0.2-1.0) mg/dL AST (10-42) IU/L ALT (10-60) IU/L Alkaline Phosphatase (42-121) IU/L Total Protein (6.7-8.2) g/dL Albumin (3.2-5.5) g/dL Globulin (2.1-4.2) g/dL Albumin/Globulin Ratio (1.0-2.2) Prealbumin 12 L (18-45) mg/dL Triglycerides ( - 149) mg/dL 02/09/18 02/09/18 02/08/18 Range/Units 05:33 05:33 23:56 WBC 14.3 H (4.8-10.8) x10^3/uL RBC 2.57 L (4.70-6.10) 10^6/uL Hgb 7.9 L (14.0-18.0) g/dL Hct 23.8 L (42.0-52.0) % MCV 92.7 (80.0-94.0) fL MCH 30.8 (27.0-31.0) pg MCHC 33.2 (32.0-36.0) g/dL RDW 15.0 (12.0-15.0) % Plt Count 116 L (130-450) 10^3/uL MPV 9.3 (7.4-11.4) fL Neut # (Auto) 10.6 H (1.5-6.6) 10^3/uL Lymph # (Auto) 2.2 (1.5-3.5) 10^3/uL [place] # (Auto) 1.1 H (0.0-1.0) 10^3/uL Eos # (Auto) 0.3 (0.0-0.7) 10^3/uL Baso # (Auto) 0.1 (0.0-0.1) 10^3/uL Absolute Nucleated RBC 0.00 x10^3/uL Nucleated RBC % 0.0 /100WBC PT (9.9-12.6) secs INR (0.8-1.2) Sodium 136 (135-145) mmol/L Potassium 4.0 (3.5-5.0) mmol/L Chloride 110 (101-111) mmol/L Carbon Dioxide 23 (21-32) mmol/L Anion Gap 3.0 L (6-13) BUN 18 (6-20) mg/dL Creatinine 0.5 L (0.6-1.2) mg/dL Estimated GFR (MDRD) 174 (>89) Glucose 126 H (70-100) mg/dL POC Whole Bld Glucose 137 H (70 - 100) mg/dL Calcium 7.2 L (8.5-10.3) mg/dL Phosphorus 1.9 L (2.5-4.6) mg/dL Magnesium 1.9 (1.7-2.8) mg/dL Total Bilirubin 0.6 (0.2-1.0) mg/dL AST 25 (10-42) IU/L ALT 14 (10-60) IU/L Alkaline Phosphatase 32 L (42-121) IU/L Total Protein 4.0 L (6.7-8.2) g/dL Albumin 1.8 L (3.2-5.5) g/dL Globulin 2.2 (2.1-4.2) g/dL Albumin/Globulin Ratio 0.8 L (1.0-2.2) Prealbumin (18-45) mg/dL Triglycerides 73 ( - 149) mg/dL 02/08/18 Range/Units 17:05 WBC (4.8-10.8) x10^3/uL RBC (4.70-6.10) 10^6/uL Hgb 9.4 L (14.0-18.0) g/dL Hct (42.0-52.0) % MCV (80.0-94.0) fL MCH (27.0-31.0) pg MCHC (32.0-36.0) g/dL RDW (12.0-15.0) % Plt Count (130-450) 10^3/uL MPV (7.4-11.4) fL Neut # (Auto) (1.5-6.6) 10^3/uL Lymph # (Auto) (1.5-3.5) 10^3/uL [place] # (Auto) (0.0-1.0) 10^3/uL Eos # (Auto) (0.0-0.7) 10^3/uL Baso # (Auto) (0.0-0.1) 10^3/uL Absolute Nucleated RBC x10^3/uL Nucleated RBC % /100WBC PT (9.9-12.6) secs INR (0.8-1.2) Sodium (135-145) mmol/L Potassium (3.5-5.0) mmol/L Chloride (101-111) mmol/L Carbon Dioxide (21-32) mmol/L Anion Gap (6-13) BUN (6-20) mg/dL Creatinine (0.6-1.2) mg/dL Estimated GFR (MDRD) (>89) Glucose (70-100) mg/dL POC Whole Bld Glucose (70 - 100) mg/dL Calcium (8.5-10.3) mg/dL Phosphorus (2.5-4.6) mg/dL Magnesium (1.7-2.8) mg/dL Total Bilirubin (0.2-1.0) mg/dL AST (10-42) IU/L ALT (10-60) IU/L Alkaline Phosphatase (42-121) IU/L Total Protein (6.7-8.2) g/dL Albumin (3.2-5.5) g/dL Globulin (2.1-4.2) g/dL Albumin/Globulin Ratio (1.0-2.2) Prealbumin (18-45) mg/dL Triglycerides ( - 149) mg/dL Assessment/Plan - Problem List (1) Duodenal ulcer with hemorrhage Impression: Patient presented to the emergency department after 3-4 days of abdominal pain, nausea and body aches. The patient took ibuprofen 400 mg 4 doses 3 days ago. After this the patient's symptoms have become worse with increasing abdominal pain and nausea. Early this morning the patient became dizzy and fell to the floor. The patient continued to remain dizzy and had a bowel movement filled with black and bloody stools as well as clots. The patient also found that his dressing around his PEG tube was soaked in blood-tinged material. On presentation to the emergency department the patient was hypotensive and appeared pale. Patient's hemoglobin dropped from 12.8 in August 2017 down to 10.0 on admission. The patient had no further episodes of bleeding in the emergency department however was having vomiting with dark emesis. He dropped to 7 gram once he was admitted and transfused 2 units. After those 2 units still 6 grams Hgb and had more bloody stool. Transfused 2 more units. Taken to OR for EGD and large arterial duodenal bleed. After recover in the PACU, he returned to the ICU. 02/06 am still with anemia and transfused #5 and #6. He was stable on the and had been 24 hours with a stable hemoglobin at 8.48.3. He really wanted to go home but surgery felt strongly that he should stay 1 more day. In the packager hand hours of 02/08 , the middle of the night, he started vomiting blood, and had to be taken urgently to the OR with hypotension. Postop day 2 for exploratory laparotomy, oversewn duodenal ulcer, repair of perforation of duodenum, and cholecystectomy. Apparently his anterior duodenal ulcer had eroded through to the cystic artery. And the cystic artery was bleeding. He needed 4 more units of blood in the OR so has had a total of 10 units so far. Plan: 2 large-bore IVs continue with a third (cordis)in his neck. Continue H&H bid for more 24 hours. Transfuse if hemoglobin drops below 7 or if patient continues to be hypotensive with significant drop in hemoglobin. no tube feeds until 02/13 UGI w SBFT on 02/12 IV Protonix twice daily to continue Carafate slurry to be held until he can resume tube feeds. PPI for 6 weeks after discharge. Avoid NSAIDs, blood thinners and aspirin forever. Qualifiers: GI bleed type/associated pathology: melena Qualified Code(s): K92.1 - Melena (2) Hyperglycemia Conclusion/Plan: On presentation to the emergency department the patient blood glucose is elevated at 153. The patient does have a family history of diabetes. The patient's blood glucose may be elevated secondary to stress response due to ongoing GI bleed. Repeat was 134 and A1c was 5.4% (3) Achalasia of esophagus Impression: The patient has a history of esophageal dysmotility for which he has a PEG tube. The patient gets PEG tube feedings. We resumed tube feeds yesterday and he continues his chewing and putting food in his mouth and then spitting it out. He does it for the taste. But today, we have held them. Surgery will hold until POD #5. then resume with Carafate slurry. He can still put clears in his mouth and spit them out. (4) Peritoneal free air Impression: This was noted on CXR after his EGD. The plain film was done because of his history of chest pain. So far he continues to have normal bowel sounds. Has flatus. Generalized tenderness around the PEG tube not epigastrium. No fever. General surgery has started empiric antibiotics. CT the abdomen ordered for follow-up and it showed free air is seen under the diaphragm on both sides. Patient at this time is asymptomatic. No fever, no elevated white cell count, passing flatus. Had Minimal pain only at the PEG tube site. In retrospect the free air was from the perforated duodenal ulcer forming (5) Abnormal CT scan, lung Impression: right lung base Consolidation is seen on the CT of the abdomen. He is already on Zosyn for the abdominal free air. Suspect atelectasis. So far no hypoxia, no fever, no elevated white cell count. So while there are abnormal lung scan findings, I am not ready to call it pneumonia yet.
--- NOTE | 2018-02-09 12:34 | XRAY Report ---
Procedure Date: 02/09/2018 Accession Number: [id number] / [id number] Procedure: XR - Chest 1 View X-Ray CPT Code: 72590 FULL RESULT: EXAM: Chest 1 View X-Ray DATE: 02/09/2018 12:20 PM CLINICAL HISTORY: ng tube placement COMPARISON: 02/08/2018. TECHNIQUE: Single view of the chest. FINDINGS: Lung volumes are low, stable finding. The nasogastric tube terminates with its tip below the diaphragm outside the inferior confines of the radiograph. A right internal jugular vein central catheter terminates in the upper SVC. Limited evaluation of the cardiomediastinal silhouette due to rotation. Within these limitations, the appearance is concerning for pneumomediastinum. There is no pneumothorax or sizable pleural effusion. There is no significant pulmonary consolidation or pulmonary edema. IMPRESSION: Limited radiograph with pneumomediastinum until proven otherwise. The enteric tube is below the diaphragm. [facility]
[2018-02-09 13:39] LABS: HGB - HEMOGLOBIN 8.2 g/dL (14.0-18.0)
[2018-02-09] MEDS: SODIUM CHLORIDE 0.9% 500 ML IV PRN (14:37)
[2018-02-09] MEDS: FAT EMULSION 20% 250 ML IV SCH (19:06)
[2018-02-09] MEDS: TPN (CLINIMIX E 5/15) 2,000 ML with MULTIVITAMIN 10 ML IV SCH ×2 (19:06)
[2018-02-09] MEDS: TRACE ELEMENTS V CONC 1 ML in SODIUM CHLORIDE 0.9% 100ML 100 ML IV SCH (19:08)
--- NOTE | 2018-02-09 21:35 | PROVIDER PROGRESS NOTE ---
Subjective - General Admit Date: 02/04/18 Procedure Date: 02/08/18 Post Op Days: 1 Procedure Performed: Takedown ulcer to cystic artery, control bleeding, pyloroplasty, cholecyste - Review of Systems Wound/Incisions: positive: Dressing dry and intact Drain Type: 19 Fr Ralph Drain Output Description: Thin bloody Approximate mls Output: 50 General: positive: No symptoms HEENT: positive: No symptoms Pulmonary: positive: No symptoms Cardiovascular: positive: No symptoms Gastrointestinal: positive: No symptoms, Abdominal pain (Incisional.) Genitourinary: positive: No symptoms Musculoskeletal: positive: No symptoms Skin: positive: No symptoms Psychiatric: positive: No symptoms Objective - Patient Data Reviewed Vital Signs: Yes Vital Signs: Vital Signs x48h Temp Pulse Resp BP Pulse Ox 02/09/18 20:00 37.3 C 70 24 104/77 97 02/09/18 19:00 75 17 106/62 98 02/09/18 18:00 65 15 108/65 96 02/09/18 17:00 37.5 C 72 19 100/88 H 96 02/09/18 16:00 74 14 112/64 96 02/09/18 15:00 78 19 104/58 L 97 02/09/18 14:00 75 21 105/54 L 100 Weight: Weight 02/07/18 02/08/18 02/09/18 23:59 23:59 23:59 Weight (kg) 70 kg 72 kg Intake & Output: Intake and Output Totals x24h 02/07/18 02/08/18 02/09/18 23:59 23:59 23:59 Intake Total 4454.73 3442.083 3242.150 Output Total 3645 1629 2868 Balance 809.73 1813.083 374.150 - Lab Results Lab Results: 02/09/18 13:30 02/09/18 05:33 Other Lab Results: Lab Results x24hrs 02/09/18 02/09/18 02/09/18 Range/Units 13:30 06:22 05:33 WBC (4.8-10.8) x10^3/uL RBC (4.70-6.10) 10^6/uL Hgb 8.2 L (14.0-18.0) g/dL Hct 23.9 L (42.0-52.0) % MCV (80.0-94.0) fL MCH (27.0-31.0) pg MCHC (32.0-36.0) g/dL RDW (12.0-15.0) % Plt Count (130-450) 10^3/uL MPV (7.4-11.4) fL Neut # (Auto) (1.5-6.6) 10^3/uL Lymph # (Auto) (1.5-3.5) 10^3/uL [place] # (Auto) (0.0-1.0) 10^3/uL Eos # (Auto) (0.0-0.7) 10^3/uL Baso # (Auto) (0.0-0.1) 10^3/uL Absolute Nucleated RBC x10^3/uL Nucleated RBC % /100WBC PT 15.5 H (9.9-12.6) secs INR 1.4 H (0.8-1.2) Sodium (135-145) mmol/L Potassium (3.5-5.0) mmol/L Chloride (101-111) mmol/L Carbon Dioxide (21-32) mmol/L Anion Gap (6-13) BUN (6-20) mg/dL Creatinine (0.6-1.2) mg/dL Estimated GFR (MDRD) (>89) Glucose (70-100) mg/dL POC Whole Bld Glucose 122 H (70 - 100) mg/dL Calcium (8.5-10.3) mg/dL Phosphorus (2.5-4.6) mg/dL Magnesium (1.7-2.8) mg/dL Total Bilirubin (0.2-1.0) mg/dL AST (10-42) IU/L ALT (10-60) IU/L Alkaline Phosphatase (42-121) IU/L Total Protein (6.7-8.2) g/dL Albumin (3.2-5.5) g/dL Globulin (2.1-4.2) g/dL Albumin/Globulin Ratio (1.0-2.2) Prealbumin (18-45) mg/dL Triglycerides ( - 149) mg/dL 02/09/18 02/09/18 02/09/18 Range/Units 05:33 05:33 05:33 WBC 14.3 H (4.8-10.8) x10^3/uL RBC 2.57 L (4.70-6.10) 10^6/uL Hgb 7.9 L (14.0-18.0) g/dL Hct 23.8 L (42.0-52.0) % MCV 92.7 (80.0-94.0) fL MCH 30.8 (27.0-31.0) pg MCHC 33.2 (32.0-36.0) g/dL RDW 15.0 (12.0-15.0) % Plt Count 116 L (130-450) 10^3/uL MPV 9.3 (7.4-11.4) fL Neut # (Auto) 10.6 H (1.5-6.6) 10^3/uL Lymph # (Auto) 2.2 (1.5-3.5) 10^3/uL [place] # (Auto) 1.1 H (0.0-1.0) 10^3/uL Eos # (Auto) 0.3 (0.0-0.7) 10^3/uL Baso # (Auto) 0.1 (0.0-0.1) 10^3/uL Absolute Nucleated RBC 0.00 x10^3/uL Nucleated RBC % 0.0 /100WBC PT (9.9-12.6) secs INR (0.8-1.2) Sodium 136 (135-145) mmol/L Potassium 4.0 (3.5-5.0) mmol/L Chloride 110 (101-111) mmol/L Carbon Dioxide 23 (21-32) mmol/L Anion Gap 3.0 L (6-13) BUN 18 (6-20) mg/dL Creatinine 0.5 L (0.6-1.2) mg/dL Estimated GFR (MDRD) 174 (>89) Glucose 126 H (70-100) mg/dL POC Whole Bld Glucose (70 - 100) mg/dL Calcium 7.2 L (8.5-10.3) mg/dL Phosphorus 1.9 L (2.5-4.6) mg/dL Magnesium 1.9 (1.7-2.8) mg/dL Total Bilirubin 0.6 (0.2-1.0) mg/dL AST 25 (10-42) IU/L ALT 14 (10-60) IU/L Alkaline Phosphatase 32 L (42-121) IU/L Total Protein 4.0 L (6.7-8.2) g/dL Albumin 1.8 L (3.2-5.5) g/dL Globulin 2.2 (2.1-4.2) g/dL Albumin/Globulin Ratio 0.8 L (1.0-2.2) Prealbumin 12 L (18-45) mg/dL Triglycerides 73 ( - 149) mg/dL 02/08/18 Range/Units 23:56 WBC (4.8-10.8) x10^3/uL RBC (4.70-6.10) 10^6/uL Hgb (14.0-18.0) g/dL Hct (42.0-52.0) % MCV (80.0-94.0) fL MCH (27.0-31.0) pg MCHC (32.0-36.0) g/dL RDW (12.0-15.0) % Plt Count (130-450) 10^3/uL MPV (7.4-11.4) fL Neut # (Auto) (1.5-6.6) 10^3/uL Lymph # (Auto) (1.5-3.5) 10^3/uL [place] # (Auto) (0.0-1.0) 10^3/uL Eos # (Auto) (0.0-0.7) 10^3/uL Baso # (Auto) (0.0-0.1) 10^3/uL Absolute Nucleated RBC x10^3/uL Nucleated RBC % /100WBC PT (9.9-12.6) secs INR (0.8-1.2) Sodium (135-145) mmol/L Potassium (3.5-5.0) mmol/L Chloride (101-111) mmol/L Carbon Dioxide (21-32) mmol/L Anion Gap (6-13) BUN (6-20) mg/dL Creatinine (0.6-1.2) mg/dL Estimated GFR (MDRD) (>89) Glucose (70-100) mg/dL POC Whole Bld Glucose 137 H (70 - 100) mg/dL Calcium (8.5-10.3) mg/dL Phosphorus (2.5-4.6) mg/dL Magnesium (1.7-2.8) mg/dL Total Bilirubin (0.2-1.0) mg/dL AST (10-42) IU/L ALT (10-60) IU/L Alkaline Phosphatase (42-121) IU/L Total Protein (6.7-8.2) g/dL Albumin (3.2-5.5) g/dL Globulin (2.1-4.2) g/dL Albumin/Globulin Ratio (1.0-2.2) Prealbumin (18-45) mg/dL Triglycerides ( - 149) mg/dL - Imaging Results Radiology Imaging: positive: Final report received, EMP read indepedently Imaging Results Comments: Pneumomediastinum in an asymptomatic patient - unclear etiology - will follow. - Current Medications Current Medications: Current Medications Generic Name Dose Route Start Last Admin Trade Name Freq PRN Reason Stop Dose Admin Diphenhydramine HCl 25 mg 02/05/18 21:07 02/07/18 23:01 Benadryl Inj IVP 25 mg 2200 PRN Administration Insomnia Hydromorphone HCl 2 mg 02/08/18 03:59 02/09/18 06:23 Dilaudid (Vial) IVP 2 mg Q2H PRN Administration PAIN Hydromorphone HCl 1 mg 02/08/18 04:00 02/09/18 17:51 Dilaudid (Vial) IVP 1 mg Q2H PRN Administration PAIN Multivitamins 10 ml/ Amino Ac/ 2,010 mls @ 83 mls/hr 02/08/18 19:00 02/09/18 20:27 Electrol/Dextrose/Calcium IV 83 mls/hr Q24H [facility] Infusion Protocol Fat Emulsion Intravenous 250 mls @ 21 mls/hr 02/08/18 19:00 02/09/18 20:27 Intralipid 20% IV 21 mls/hr Q24H [facility] Infusion Chromium/Copper/Manganese/ 101 mls @ 5 mls/hr 02/08/18 19:00 02/09/18 20:27 Seleni/Zn 1 ml/ Sodium IV 5 mls/hr Chloride TPN/PPN [facility] Infusion Sodium Chloride 500 mls @ 20 mls/hr 02/08/18 21:52 02/09/18 18:00 Normal Saline 0.9% IV 20 mls/hr Q24H PRN Infusion TKO RATE TKO Morphine Sulfate 2 mg 02/04/18 04:56 02/08/18 17:15 Morphine IVP 2 mg Q2H PRN Administration PAIN Pantoprazole Sodium 40 mg 02/08/18 19:00 02/09/18 06:23 Protonix IVP 40 mg QDAC [facility] Administration Sodium Chloride 10 ml 02/04/18 03:49 02/08/18 05:29 Normal Saline Flush 0.9% IVP 30 ml PRN PRN Administration NEEDED PER PROVIDER ORDERS Sodium Chloride 10 ml 02/04/18 09:00 02/09/18 17:10 Normal Saline Flush 0.9% IVP 10 ml 0100,0900,1700 [facility] Administration - Physical Exam Wound/Incisions: positive: Dressing dry and intact General Appearance: positive: No acute distress Eyes Bilateral: positive: No lid inflammation, Conjunctivae nml, No scleral icterus ENT: positive: No signs of dehydration Neck: positive: Trachea midline Respiratory: positive: Chest non-tender Cardiovascular: positive: Regular rate & rhythm Abdomen: positive: Tenderness (Incisional.), Other (NG to suction and gastrostomy tube to gravity drainage.) Skin: positive: Color nml Extremities: positive: Nml appearance Neurologic/Psychiatric: positive: Oriented x3 Impression/Plan - Problem List Problem List: D1 s/p emergent laparotomy to control bleeding, with takedown of ulcer to gallbladder/cystic artery, control of bleeding, cholecystectomy, pyloroplasty, drain placement 1) FEN On hyperalimentation and as soon as bowel function returns well will check for leak with a radiographic study. If no leak can restart tube feeds through gastrostomy tube. Can replace with a AL-BURKETT tube later. This tube can be used for continuous or bolus feeds. 2) Bleeding Controlled. H&H stable. Do not expect further difficulties. Will require repeat EGD in 6 weeks to look for healing. 3) DVT Prophylaxis in place. 4) Drains Strip Ralph every shift. Will remove NG within 24 hours. Discussed with the patient that this is the only time that I have ever seen this type of pathophysiology. I explained the posterior ulcers tenably and anterior ulcers tend appropriate but in this instance it was an anterior ulcer that due to adhesions cause bleeding from the cystic artery. This may in fact be a reportable case.
[2018-02-09] MEDS: diphenhydrAMINE INJ 50 MG/ML VIAL IVP PRN (22:10)
[2018-02-10] MEDS: HYDROmorphone 2 MG/ML VIAL IVP PRN ×6 (05:11→21:14)
[2018-02-10] MEDS: SODIUM CHLORIDE FLUSH 0.9% 10 ML SYRINGE IVP SCH ×3 (05:11→16:51)
[2018-02-10] MEDS: PANTOPRAZOLE 40 MG VIAL IVP SCH (07:54)
[2018-02-10 08:10] LABS: ALBUMIN 1.6 g/dL (3.2-5.5); ALBUMIN/GLOBULIN RATIO 0.6 (1.0-2.2); BILIRUBIN,TOTAL 0.4 mg/dL (0.2-1.0); CALCIUM 7.1 mg/dL (8.5-10.3); CREATININE 0.4 mg/dL (0.6-1.2); TOTAL PROTEIN 4.1 g/dL (6.7-8.2)
[2018-02-10 08:12] LABS: MEAN CORPUSCULAR HEMOGLOBIN 31.3 pg (27.0-31.0); MEAN CORPUSCULAR HGB CONC 34.2 g/dL (32.0-36.0); MEAN CORPUSCULAR VOLUME 91.5 fL (80.0-94.0); MEAN PLATELET VOLUME 9.6 fL (7.4-11.4); RED BLOOD COUNT 2.11 10^6/uL (4.70-6.10); RED CELL DISTRIBUTION WIDTH 14.7 % (12.0-15.0); WHITE BLOOD COUNT 10.1 x10^3/uL (4.8-10.8)
[2018-02-10 08:14] LABS: HGB - HEMOGLOBIN 6.6 g/dL (14.0-18.0)
[2018-02-10] MEDS: SODIUM CHLORIDE FLUSH 0.9% 10 ML SYRINGE IVP PRN ×4 (09:26→18:46)
[2018-02-10] MEDS: POTASSIUM CHLOR 20 MEQ/100 ML 20 MEQ/100 ML BAG IV SCH ×2 (10:36→11:38)
--- NOTE | 2018-02-10 13:30 | PROVIDER PROGRESS NOTE ---
Subjective - General Admit Date: 02/04/18 Procedure Date: 02/08/18 Post Op Days: 2 Procedure Performed: Takedown ulcer to cystic artery, control bleeding, pyloroplasty, cholecyste - Review of Systems Wound/Incisions: positive: Dressing dry and intact Drain Type: 19 Fr Ralph Drain Output Description: Thin bloody Approximate mls Output: 50 General: positive: No symptoms HEENT: positive: No symptoms Pulmonary: positive: No symptoms Cardiovascular: positive: No symptoms Gastrointestinal: positive: No symptoms, Abdominal pain (Incisional.) Genitourinary: positive: No symptoms Musculoskeletal: positive: No symptoms Skin: positive: No symptoms Psychiatric: positive: No symptoms Objective - Patient Data Vital Signs: Vital Signs x48h Temp Pulse Pulse Resp BP BP Pulse Ox 02/10/18 13:22 37.2 C 64 16 105/71 02/10/18 13:06 36.9 C 68 16 113/73 02/10/18 13:00 58 L 16 105/71 100 02/10/18 12:00 37.2 C 64 17 109/72 97 02/10/18 11:00 71 24 105/63 100 02/10/18 10:30 37.3 C 60 16 103/51 L 02/10/18 10:13 37.2 C 63 18 103/63 02/10/18 10:00 64 19 103/63 100 02/10/18 09:00 78 17 101/63 94 02/10/18 08:00 68 17 98/71 99 02/10/18 07:00 62 16 101/59 L 98 02/10/18 06:00 62 16 95/57 L 97 Weight: Weight 02/08/18 02/09/18 02/10/18 23:59 23:59 23:59 Weight (kg) 70 kg 72 kg 75.5 kg Intake & Output: Intake and Output Totals x24h 02/08/18 02/09/18 02/10/18 23:59 23:59 23:59 Intake Total 3442.083 3514.567 2088.149 Output Total 1629 2878 2160 Balance 1813.083 636.567 -71.851 - Lab Results Lab Results: 02/10/18 05:00 02/10/18 05:00 Other Lab Results: Lab Results x24hrs 02/10/18 02/10/18 02/10/18 Range/Units 11:56 05:00 05:00 WBC 10.1 (4.8-10.8) x10^3/uL RBC 2.11 L (4.70-6.10) 10^6/uL Hgb 6.6 L* (14.0-18.0) g/dL Hct 19.3 L* (42.0-52.0) % MCV 91.5 (80.0-94.0) fL MCH 31.3 H (27.0-31.0) pg MCHC 34.2 (32.0-36.0) g/dL RDW 14.7 (12.0-15.0) % Plt Count 117 L (130-450) 10^3/uL MPV 9.6 (7.4-11.4) fL Sodium 134 L (135-145) mmol/L Potassium 3.3 L (3.5-5.0) mmol/L Chloride 105 (101-111) mmol/L Carbon Dioxide 26 (21-32) mmol/L Anion Gap 3.0 L (6-13) BUN 15 (6-20) mg/dL Creatinine 0.4 L (0.6-1.2) mg/dL Estimated GFR (MDRD) 225 (>89) Glucose 132 H (70-100) mg/dL POC Whole Bld Glucose 102 H (70 - 100) mg/dL Calcium 7.1 L (8.5-10.3) mg/dL Total Bilirubin 0.4 (0.2-1.0) mg/dL AST 23 (10-42) IU/L ALT 13 (10-60) IU/L Alkaline Phosphatase 31 L (42-121) IU/L Total Protein 4.1 L (6.7-8.2) g/dL Albumin 1.6 L (3.2-5.5) g/dL Globulin 2.5 (2.1-4.2) g/dL Albumin/Globulin Ratio 0.6 L (1.0-2.2) Blood Type Antibody Screen Crossmatch IS Only 02/09/18 02/09/18 02/07/18 Range/Units 23:52 13:30 22:44 WBC (4.8-10.8) x10^3/uL RBC (4.70-6.10) 10^6/uL Hgb 8.2 L (14.0-18.0) g/dL Hct 23.9 L (42.0-52.0) % MCV (80.0-94.0) fL MCH (27.0-31.0) pg MCHC (32.0-36.0) g/dL RDW (12.0-15.0) % Plt Count (130-450) 10^3/uL MPV (7.4-11.4) fL Sodium (135-145) mmol/L Potassium (3.5-5.0) mmol/L Chloride (101-111) mmol/L Carbon Dioxide (21-32) mmol/L Anion Gap (6-13) BUN (6-20) mg/dL Creatinine (0.6-1.2) mg/dL Estimated GFR (MDRD) (>89) Glucose (70-100) mg/dL POC Whole Bld Glucose 117 H (70 - 100) mg/dL Calcium (8.5-10.3) mg/dL Total Bilirubin (0.2-1.0) mg/dL AST (10-42) IU/L ALT (10-60) IU/L Alkaline Phosphatase (42-121) IU/L Total Protein (6.7-8.2) g/dL Albumin (3.2-5.5) g/dL Globulin (2.1-4.2) g/dL Albumin/Globulin Ratio (1.0-2.2) Blood Type O POSITIVE Antibody Screen NEGATIVE Crossmatch IS Only See Detail - Current Medications Current Medications: Current Medications Generic Name Dose Route Start Last Admin Trade Name Freq PRN Reason Stop Dose Admin Diphenhydramine HCl 25 mg 02/05/18 21:07 02/09/18 22:10 Benadryl Inj IVP 25 mg 2200 PRN Administration Insomnia Hydromorphone HCl 2 mg 02/08/18 03:59 02/10/18 12:08 Dilaudid (Vial) IVP 2 mg Q2H PRN Administration PAIN Hydromorphone HCl 1 mg 02/08/18 04:00 02/09/18 17:51 Dilaudid (Vial) IVP 1 mg Q2H PRN Administration PAIN Multivitamins 10 ml/ Amino Ac/ 2,010 mls @ 83 mls/hr 02/08/18 19:00 02/10/18 13:17 Electrol/Dextrose/Calcium IV 83 mls/hr Q24H [facility] Infusion Protocol Fat Emulsion Intravenous 250 mls @ 21 mls/hr 02/08/18 19:00 02/10/18 07:23 Intralipid 20% IV Infused Q24H [facility] Infusion Chromium/Copper/Manganese/ 101 mls @ 5 mls/hr 02/08/18 19:00 02/10/18 07:24 Seleni/Zn 1 ml/ Sodium IV 5 mls/hr Chloride TPN/PPN [facility] Infusion Sodium Chloride 500 mls @ 20 mls/hr 02/08/18 21:52 02/10/18 07:00 Normal Saline 0.9% IV 20 mls/hr Q24H PRN Infusion TKO RATE TKO Morphine Sulfate 2 mg 02/04/18 04:56 02/08/18 17:15 Morphine IVP 2 mg Q2H PRN Administration PAIN Pantoprazole Sodium 40 mg 02/08/18 19:00 02/10/18 07:54 Protonix IVP 40 mg QDAC [facility] Administration Sodium Chloride 10 ml 02/04/18 03:49 02/10/18 12:08 Normal Saline Flush 0.9% IVP 10 ml PRN PRN Administration NEEDED PER PROVIDER ORDERS Sodium Chloride 10 ml 02/04/18 09:00 02/10/18 07:54 Normal Saline Flush 0.9% IVP 10 ml 0100,0900,1700 [facility] Administration - Physical Exam Wound/Incisions: positive: Healing well Respiratory: positive: No respiratory distress Cardiovascular: positive: Regular rate & rhythm Abdomen: positive: Other (dressing dry. NGT-PEG tube drainage old blood) Rectal: positive: Other Impression/Plan - Problem List Problem List: s/p repair perforated, bleeding duodenal ulcer POD#2. HGB decreased to 6.6. ? error by drawing from central line. Only old blood from NGT. -repeat H&H. -NPO/TPN -UGI to check integrity of duodenal closure.
[2018-02-10 14:13] LABS: HGB - HEMOGLOBIN 8.3 g/dL (14.0-18.0)
[2018-02-10] MEDS: SODIUM CHLORIDE 0.9% 500 ML IV PRN (15:46)
--- NOTE | 2018-02-10 17:36 | PROVIDER PROGRESS NOTE ---
Subjective - Prog Note Date Prog Note Date: 02/10/18 Prog Note Time: 14:00 - Subjective Pt reports feeling: Improved Subjective: The patient says he feels better today. Denies any fevers, chills, shortness of breath, chest pain, or any other new problems. He has not passed any gas. Current Medications - Current Medications Current Medications: Active Medications Generic Name Dose Route Start Last Admin Trade Name Freq PRN Reason Stop Dose Admin Diphenhydramine HCl 25 mg 02/05/18 21:07 02/09/18 22:10 Benadryl Inj IVP 25 mg 2200 PRN Administration Insomnia Hydromorphone HCl 2 mg 02/08/18 03:59 02/10/18 14:11 Dilaudid (Vial) IVP 2 mg Q2H PRN Administration PAIN Hydromorphone HCl 1 mg 02/08/18 04:00 02/09/18 17:51 Dilaudid (Vial) IVP 1 mg Q2H PRN Administration PAIN Multivitamins 10 ml/ Amino Ac/ 2,010 mls @ 83 mls/hr 02/08/18 19:00 02/10/18 17:00 Electrol/Dextrose/Calcium IV 83 mls/hr Q24H [facility] Infusion Protocol Fat Emulsion Intravenous 250 mls @ 21 mls/hr 02/08/18 19:00 02/10/18 07:23 Intralipid 20% IV Infused Q24H [facility] Infusion Chromium/Copper/Manganese/ 101 mls @ 5 mls/hr 02/08/18 19:00 02/10/18 14:19 Seleni/Zn 1 ml/ Sodium IV Infused Chloride TPN/PPN [facility] Infusion Sodium Chloride 500 mls @ 20 mls/hr 02/08/18 21:52 02/10/18 15:46 Normal Saline 0.9% IV 20 mls/hr Q24H PRN Administration TKO RATE TKO Morphine Sulfate 2 mg 02/04/18 04:56 02/08/18 17:15 Morphine IVP 2 mg Q2H PRN Administration PAIN Ondansetron HCl 4 mg 02/04/18 03:49 Zofran Inj IVP Q6HR PRN Nausea / Vomiting Pantoprazole Sodium 40 mg 02/08/18 19:00 02/10/18 07:54 Protonix IVP 40 mg QDAC [facility] Administration Petrolatum 5 gm 02/08/18 14:27 Vaseline TOP Q4HR PRN Dry Lips Prochlorperazine Edisylate 10 mg 02/04/18 03:49 Compazine Inj IVP Q6HR PRN Nausea / Vomiting Promethazine HCl 25 mg 02/04/18 03:49 Phenergan Inj IM Q6HR PRN Nausea / Vomiting Sodium Chloride 10 ml 02/04/18 03:49 02/10/18 14:11 Normal Saline Flush 0.9% IVP 10 ml PRN PRN Administration NEEDED PER PROVIDER ORDERS Sodium Chloride 10 ml 02/04/18 09:00 02/10/18 16:51 Normal Saline Flush 0.9% IVP 10 ml 0100,0900,1700 [facility] Administration Ferrous Sulfate 5 ml PEG DAILY 02/04/18 Jevity 6 bottle PEG DAILY 02/04/18 Objective - Vital Signs/Intake & Output Reviewed Vital Signs: Yes Vital Signs: Vital Signs Temp Pulse Pulse Resp BP BP Pulse Ox 02/10/18 17:29 37.2 C 58 L 15 97/86 H 02/10/18 17:17 37.2 C 59 L 20 110/80 02/10/18 17:00 37.2 C 53 L 14 110/80 98 02/10/18 16:43 37.2 C 55 L 22 99/69 02/10/18 16:00 54 L 16 90/58 L 99 02/10/18 15:00 63 18 105/65 98 02/10/18 14:00 56 L 14 98/70 98 Intake & Output: Intake & Output 02/07/18 02/08/18 02/09/18 02/10/18 23:59 23:59 23:59 23:59 Intake Total 4454.73 3442.083 3514.567 3141.633 Output Total 3645 1629 2878 2830 Balance 809.73 1813.083 636.567 311.633 - Objective General Appearance: positive: No acute distress, Alert Eyes Bilateral: positive: Normal inspection, PERRL, EOMI, No lid inflammation, Conjunctivae nml, No scleral icterus ENT: positive: ENT inspection nml, Pharynx nml, No signs of dehydration Neck: positive: Nml inspection, Thyroid nml, No JVD, Trachea midline. negative : Thyromegaly Respiratory: positive: Chest non-tender, No respiratory distress, Breath sounds nml. negative: Wheezes, Rales, Rhonchi Abdomen: positive: No organomegaly, No distention, Tenderness, Abnml bowel sounds (hypoactive). negative: Nml bowel sounds, Guarding, Rebound Back: positive: Nml inspection. negative: CVA tenderness (R), CVA tenderness (L ) Skin: positive: Color nml, No rash, Warm, Dry. negative: Cyanosis Extremities: positive: Non-tender, Full ROM, Nml appearance, No pedal edema Neurologic/Psychiatric: positive: Oriented x3, CN's nml (2-12), Motor nml, Sensation nml, Mood/affect nml - Lab Results Fish Bones: 02/10/18 14:05 02/10/18 05:00 Other Labs: Lab Results x24hrs 02/10/18 02/10/18 02/10/18 Range/Units 14:05 11:56 05:00 WBC (4.8-10.8) x10^3/uL RBC (4.70-6.10) 10^6/uL Hgb 8.3 L (14.0-18.0) g/dL Hct 24.3 L (42.0-52.0) % MCV (80.0-94.0) fL MCH (27.0-31.0) pg MCHC (32.0-36.0) g/dL RDW (12.0-15.0) % Plt Count (130-450) 10^3/uL MPV (7.4-11.4) fL Sodium 134 L (135-145) mmol/L Potassium 3.3 L (3.5-5.0) mmol/L Chloride 105 (101-111) mmol/L Carbon Dioxide 26 (21-32) mmol/L Anion Gap 3.0 L (6-13) BUN 15 (6-20) mg/dL Creatinine 0.4 L (0.6-1.2) mg/dL Estimated GFR (MDRD) 225 (>89) Glucose 132 H (70-100) mg/dL POC Whole Bld Glucose 102 H (70 - 100) mg/dL Calcium 7.1 L (8.5-10.3) mg/dL Total Bilirubin 0.4 (0.2-1.0) mg/dL AST 23 (10-42) IU/L ALT 13 (10-60) IU/L Alkaline Phosphatase 31 L (42-121) IU/L Total Protein 4.1 L (6.7-8.2) g/dL Albumin 1.6 L (3.2-5.5) g/dL Globulin 2.5 (2.1-4.2) g/dL Albumin/Globulin Ratio 0.6 L (1.0-2.2) Blood Type Antibody Screen Crossmatch IS Only 02/10/18 02/09/18 02/07/18 Range/Units 05:00 23:52 22:44 WBC 10.1 (4.8-10.8) x10^3/uL RBC 2.11 L (4.70-6.10) 10^6/uL Hgb 6.6 L* (14.0-18.0) g/dL Hct 19.3 L* (42.0-52.0) % MCV 91.5 (80.0-94.0) fL MCH 31.3 H (27.0-31.0) pg MCHC 34.2 (32.0-36.0) g/dL RDW 14.7 (12.0-15.0) % Plt Count 117 L (130-450) 10^3/uL MPV 9.6 (7.4-11.4) fL Sodium (135-145) mmol/L Potassium (3.5-5.0) mmol/L Chloride (101-111) mmol/L Carbon Dioxide (21-32) mmol/L Anion Gap (6-13) BUN (6-20) mg/dL Creatinine (0.6-1.2) mg/dL Estimated GFR (MDRD) (>89) Glucose (70-100) mg/dL POC Whole Bld Glucose 117 H (70 - 100) mg/dL Calcium (8.5-10.3) mg/dL Total Bilirubin (0.2-1.0) mg/dL AST (10-42) IU/L ALT (10-60) IU/L Alkaline Phosphatase (42-121) IU/L Total Protein (6.7-8.2) g/dL Albumin (3.2-5.5) g/dL Globulin (2.1-4.2) g/dL Albumin/Globulin Ratio (1.0-2.2) Blood Type O POSITIVE Antibody Screen NEGATIVE Crossmatch IS Only See Detail - Diagnostic Imaging Diagnostic Imaging Results: positive: Final report reviewed Diagnostic Imaging Comments: EXAM: Chest 1 View X-Ray DATE: 02/04/2018 2:22 PM CLINICAL HISTORY: Pt SOB with chest pain COMPARISON: None. TECHNIQUE: Single view of the chest. FINDINGS: There is free subdiaphragmatic gas. Lung volumes are low without focal lung opacity, pneumothorax or pleural effusion. The cardiomediastinal silhouette is within normal limits. IMPRESSION: Free extraintestinal subdiaphragmatic peritoneal air. Findings of free air were discussed in person with SERGEI Kumar at 2:30 PM EXAM: Abdomen W/O DATE: 02/05/2018 8:38 AM CLINICAL HISTORY: air under diaphragm COMPARISON: CT abdomen pelvis 10/30/2016. TECHNIQUE: Routine helical CT imaging was performed through the abdomen. IV contrast: None. Enteric contrast: None.. Reconstruction: Coronal and sagittal. In accordance with CT protocol optimization, one or more of the following dose reduction techniques were utilized for this exam: automated exposure control, adjustment of mA and/or KV based on patient size, or use of iterative reconstructive technique. FINDINGS: Consolidation at the right lung base. There is fluid-filled dilation of the lower thoracic esophagus with a caliber similar to 2017 but increased wall thickening. There is pneumoperitoneum including gas tracking along the falciform ligament, hepatic hilum and a small amount of retroperitoneal gas best demonstrated along the spleen. A mild amount of pericholecystic fluid and stranding is noted, nonspecific in the absence of contrast. The patient is status post gastric feeding tube as well as right lower quadrant abdominal wall surgery. The noncontrast liver, spleen, adrenal glands, kidneys and pancreas appear otherwise within normal limits with the exception of a nonobstructing right renal calculus. IMPRESSION: Pneumoperitoneum. Consolidation at the right lung base. Dilated fluid-filled esophagus as described. Small amount of fluid and stranding and pericholecystic distribution, nonspecific in this setting. EXAM: CHEST RADIOGRAPHY EXAM DATE: 02/08/2018 04:28 AM. CLINICAL HISTORY: LINE PLACEMENT. COMPARISON: CHEST 1 VIEW 02/04/2018. TECHNIQUE: 1 view. FINDINGS: Lungs/Pleura: Small lung volumes. Bibasilar atelectasis or infiltrate. Pulmonary vascular congestion. No obvious pleural effusion. No pneumothorax. Mediastinum: Within exam limitations, the cardiomediastinal contour is normal. Other: Enteric tube extends well beyond the gastroesophageal junction. Right internal jugular sheath with the tip at the junction of the brachiocephalic veins. IMPRESSION: 1. Small lung volumes with pulmonary vascular congestion and bibasilar atelectasis or infiltrate. 2. Enteric tube extends well beyond the GE junction. 3. Right IJ sheath with the tip at the junction of the brachiocephalic veins. EXAM: Chest 1 View X-Ray DATE: 02/09/2018 12:20 PM CLINICAL HISTORY: ng tube placement COMPARISON: 02/08/2018. TECHNIQUE: Single view of the chest. FINDINGS: Lung volumes are low, stable finding. The nasogastric tube terminates with its tip below the diaphragm outside the inferior confines of the radiograph. A right internal jugular vein central catheter terminates in the upper SVC. Limited evaluation of the cardiomediastinal silhouette due to rotation. Within these limitations, the appearance is concerning for pneumomediastinum. There is no pneumothorax or sizable pleural effusion. There is no significant pulmonary consolidation or pulmonary edema. IMPRESSION: Limited radiograph with pneumomediastinum until proven otherwise. The enteric tube is below the diaphragm. Assessment/Plan - Problem List (1) Duodenal ulcer with hemorrhage Impression: Today is postop day 3 for exploratory laparotomy with an oversewn duodenal ulcer , repair of perforation of duodenum, and cholecystectomy. The anterior wall and also had eroded through the to the cystic artery and had been initially injected with epinephrine to stem the bleeding and eventually needed to be sewn closed during the open procedure. The patient's hemoglobin dropped to 6.6 today and despite concerns by Dr. Arevalo that this was due to a central line draw with saline this does not appear to be the case. The patient is being transfused his third unit of packed red blood cells at this time. He is scheduled to undergo an upper GI with small bowel follow-through on to reassess the patency of the surgical incisions and if he passes these tests refeeding will start. In the meantime he is on TPN. (2) Hyperglycemia Impression: The patient's glucose was elevated on admission and he does have a history of diabetes but hemoglobin A1c was 5.4. Any elevated glucose is likely due to stress. We will continue to monitor. (3) Achalasia of esophagus Impression: The patient has a history of esophageal dysmotility and had a PEG tube placed for this. PEG tube feedings have been resumed. He will resume Carafate on postop day 5 (4) Peritoneal free air Impression: The patient had peritoneal free air found on chest x-ray after his EGD. This was likely due to the perforated duodenal ulcer which has been surgically repaired. (5) Abnormal CT scan, lung Impression: There was an abnormal finding of consolidation at the right lung base which is believed to be atelectasis. Patient has not mounted an elevated white blood cell count and is not hypoxic nor is he showing any signs of dyspnea. He is receiving Zosyn for abdominal free air.
[2018-02-10] MEDS: TPN (CLINIMIX E 5/15) 2,000 ML with MULTIVITAMIN 10 ML IV SCH ×2 (18:56)
[2018-02-10] MEDS: FAT EMULSION 20% 250 ML IV SCH (18:56)
[2018-02-10] MEDS: TRACE ELEMENTS V CONC 1 ML in SODIUM CHLORIDE 0.9% 100ML 100 ML IV SCH (18:57)
[2018-02-10] MEDS: diphenhydrAMINE INJ 50 MG/ML VIAL IVP PRN (22:50)
[2018-02-11] MEDS: SODIUM CHLORIDE FLUSH 0.9% 10 ML SYRINGE IVP SCH ×3 (02:26→16:37)
[2018-02-11] MEDS: HYDROmorphone 2 MG/ML VIAL IVP PRN ×7 (02:26→22:05)
[2018-02-11 04:43] LABS: HGB - HEMOGLOBIN 9.7 g/dL (14.0-18.0); MEAN CORPUSCULAR HEMOGLOBIN 31.6 pg (27.0-31.0); MEAN CORPUSCULAR HGB CONC 34.6 g/dL (32.0-36.0); MEAN CORPUSCULAR VOLUME 91.4 fL (80.0-94.0); MEAN PLATELET VOLUME 9.2 fL (7.4-11.4); RED BLOOD COUNT 3.08 10^6/uL (4.70-6.10); RED CELL DISTRIBUTION WIDTH 14.1 % (12.0-15.0); WHITE BLOOD COUNT 7.2 x10^3/uL (4.8-10.8)
[2018-02-11 04:51] LABS: PREALBUMIN 8 mg/dL (18-45)
[2018-02-11] MEDS: PANTOPRAZOLE 40 MG VIAL IVP SCH (06:36)
[2018-02-11] MEDS: SODIUM CHLORIDE FLUSH 0.9% 10 ML SYRINGE IVP PRN ×2 (14:31→18:52)
--- NOTE | 2018-02-11 15:25 | XRAY Report ---
Procedure Date: 02/11/2018 Accession Number: [id number] / [id number] Procedure: XR - Chest 1 View X-Ray CPT Code: 58581 FULL RESULT: EXAM: Chest 1 View X-Ray DATE: 02/11/2018 3:12 PM CLINICAL HISTORY: NGT placement verification COMPARISON: 02/09/2018. TECHNIQUE: Single view of the chest. FINDINGS: The enteric tube terminates with tip and sidehole below the diaphragm. A central venous catheter terminates in the SVC. Interval decrease in previously seen pneumomediastinum. Likely small residual subdiaphragmatic air, normal in the postoperative period. Small amount of bibasilar opacities, likely unchanged accounting for differences in technique. The cardiomediastinal outline is unchanged. No pneumothorax or large pleural effusion. IMPRESSION: Enteric tube is below the diaphragm with both the tip and the sidehole, appropriate positioning. [facility]
[2018-02-11] MEDS: SODIUM CHLORIDE 0.9% 500 ML IV PRN (16:58)
[2018-02-11] MEDS: TRACE ELEMENTS V CONC 1 ML in SODIUM CHLORIDE 0.9% 100ML 100 ML IV SCH (18:23)
[2018-02-11] MEDS: TPN (CLINIMIX E 5/15) 2,000 ML with MULTIVITAMIN 10 ML IV SCH ×2 (18:24)
[2018-02-11] MEDS: FAT EMULSION 20% 250 ML IV SCH (18:24)
--- NOTE | 2018-02-11 18:29 | PROVIDER PROGRESS NOTE ---
Subjective - Prog Note Date Prog Note Date: 02/11/18 Prog Note Time: 16:00 - Subjective Pt reports feeling: Improved Subjective: Patient says he continues to feel better. He is passing gas. He says his abdominal pain is improved. He denies any fevers or chills, shortness of breath or chest pain. Current Medications - Current Medications Current Medications: Active Medications Generic Name Dose Route Start Last Admin Trade Name Freq PRN Reason Stop Dose Admin Diphenhydramine HCl 25 mg 02/05/18 21:07 02/10/18 22:50 Benadryl Inj IVP 25 mg 2200 PRN Administration Insomnia Hydromorphone HCl 2 mg 02/08/18 03:59 02/11/18 16:37 Dilaudid (Vial) IVP 2 mg Q2H PRN Administration PAIN Hydromorphone HCl 1 mg 02/10/18 17:52 Dilaudid Inj Carp IVP Q2H PRN PAIN Multivitamins 10 ml/ Amino Ac/ 2,010 mls @ 83 mls/hr 02/08/18 19:00 02/11/18 16:10 Electrol/Dextrose/Calcium IV 83 mls/hr Q24H [facility] Infusion Protocol Fat Emulsion Intravenous 250 mls @ 21 mls/hr 02/08/18 19:00 02/11/18 06:58 Intralipid 20% IV Infused Q24H [facility] Infusion Chromium/Copper/Manganese/ 101 mls @ 5 mls/hr 02/08/18 19:00 02/11/18 15:12 Seleni/Zn 1 ml/ Sodium IV Infused Chloride TPN/PPN [facility] Infusion Sodium Chloride 500 mls @ 20 mls/hr 02/08/18 21:52 02/11/18 16:58 Normal Saline 0.9% IV 20 mls/hr Q24H PRN Administration TKO RATE TKO Morphine Sulfate 2 mg 02/04/18 04:56 02/08/18 17:15 Morphine IVP 2 mg Q2H PRN Administration PAIN Ondansetron HCl 4 mg 02/04/18 03:49 Zofran Inj IVP Q6HR PRN Nausea / Vomiting Pantoprazole Sodium 40 mg 02/08/18 19:00 02/11/18 06:36 Protonix IVP 40 mg QDAC [facility] Administration Petrolatum 5 gm 02/08/18 14:27 Vaseline TOP Q4HR PRN Dry Lips Prochlorperazine Edisylate 10 mg 02/04/18 03:49 Compazine Inj IVP Q6HR PRN Nausea / Vomiting Promethazine HCl 25 mg 02/04/18 03:49 Phenergan Inj IM Q6HR PRN Nausea / Vomiting Sodium Chloride 10 ml 02/04/18 03:49 02/11/18 14:31 Normal Saline Flush 0.9% IVP 10 ml PRN PRN Administration NEEDED PER PROVIDER ORDERS Sodium Chloride 10 ml 02/04/18 09:00 02/11/18 16:37 Normal Saline Flush 0.9% IVP 10 ml 0100,0900,1700 [facility] Administration Ferrous Sulfate 5 ml PEG DAILY 02/04/18 Jevity 6 bottle PEG DAILY 02/04/18 Objective - Vital Signs/Intake & Output Reviewed Vital Signs: Yes Vital Signs: Vital Signs Pulse Resp BP Pulse Ox 02/11/18 18:00 61 17 143/97 H 96 02/11/18 17:00 59 L 15 97/67 96 02/11/18 16:00 73 19 101/77 98 02/11/18 15:00 86 21 128/61 100 Intake & Output: Intake & Output 02/08/18 02/09/18 02/10/18 02/11/18 23:59 23:59 23:59 23:59 Intake Total 3442.083 3514.567 4653.949 2025.517 Output Total 1629 2878 4740 3180 Balance 1813.083 636.567 -86.051 -1154.483 - Objective General Appearance: positive: No acute distress, Alert Eyes Bilateral: positive: Normal inspection, PERRL, EOMI, No lid inflammation, Conjunctivae nml, No scleral icterus ENT: positive: ENT inspection nml, Pharynx nml, No signs of dehydration Neck: positive: Nml inspection, Thyroid nml, No JVD, Trachea midline. negative : Thyromegaly Respiratory: positive: Chest non-tender, No respiratory distress, Breath sounds nml. negative: Wheezes, Rales, Rhonchi Cardiovascular: positive: Regular rate & rhythm, No murmur, No gallop Back: positive: Nml inspection. negative: CVA tenderness (R), CVA tenderness (L ) Skin: positive: Color nml, No rash, Warm, Dry. negative: Cyanosis Extremities: positive: Non-tender, Full ROM, Nml appearance, No pedal edema Neurologic/Psychiatric: positive: Oriented x3, CN's nml (2-12), Motor nml, Sensation nml, Mood/affect nml - Lab Results Fish Bones: 02/11/18 04:15 02/10/18 05:00 Other Labs: Lab Results x24hrs 02/11/18 02/11/18 02/07/18 Range/Units 04:15 04:15 22:44 WBC 7.2 (4.8-10.8) x10^3/uL RBC 3.08 L (4.70-6.10) 10^6/uL Hgb 9.7 L (14.0-18.0) g/dL Hct 28.2 L (42.0-52.0) % MCV 91.4 (80.0-94.0) fL MCH 31.6 H (27.0-31.0) pg MCHC 34.6 (32.0-36.0) g/dL RDW 14.1 (12.0-15.0) % Plt Count 140 (130-450) 10^3/uL MPV 9.2 (7.4-11.4) fL Prealbumin 8 L (18-45) mg/dL Triglycerides 63 ( - 149) mg/dL Crossmatch IS Only See Detail Assessment/Plan - Problem List (1) Duodenal ulcer with hemorrhage Impression: Today is postop day#4 for exploratory laparotomy with an oversewn duodenal ulcer , repair of perforation of duodenum, and cholecystectomy. The anterior wall and also had eroded through the to the cystic artery and had been initially injected with epinephrine to stem the bleeding and eventually needed to be sewn closed during the open procedure. The patient's hemoglobin dropped to 6.6 yesterday and despite concerns by Dr. Arevalo that this was due to a central line draw with saline this does not appear to be the case. Received 3 units of packed red blood cells and his hemoglobin today is 9.7. The patient is scheduled to undergo an upper GI with small bowel follow-through on to reassess the patency of the surgical incisions and if he passes these tests refeeding will start. In the meantime he is on TPN. (2) Hyperglycemia Impression: The patient's glucose was elevated on admission and he does have a history of diabetes but hemoglobin A1c was 5.4. Any elevated glucose is likely due to stress. We will continue to monitor. (3) Achalasia of esophagus Impression: The patient has a history of esophageal dysmotility and had a PEG tube placed for this. PEG tube feedings have been resumed. He will resume Carafate on postop day 5 or whenever surgery restarts it. (4) Peritoneal free air Impression: The patient had peritoneal free air found on chest x-ray after his EGD. This was likely due to the perforated duodenal ulcer which has been surgically repaired. (5) Abnormal CT scan, lung Impression: There was an abnormal finding of consolidation at the right lung base which is believed to be atelectasis. Patient has not mounted an elevated white blood cell count and is not hypoxic nor is he showing any signs of dyspnea. He is receiving Zosyn for abdominal free air.
[2018-02-11] MEDS: diphenhydrAMINE INJ 50 MG/ML VIAL IVP PRN (22:06)
--- NOTE | 2018-02-11 23:22 | PROVIDER PROGRESS NOTE ---
Subjective - General Admit Date: 02/04/18 Procedure Date: 02/08/18 Post Op Days: 3 Procedure Performed: Takedown ulcer to cystic artery, control bleeding, pyloroplasty, cholecyste - Review of Systems Wound/Incisions: positive: Healing well Drain Type: 19 Fr Ralph Drain Output Description: Thin bloody Approximate mls Output: 5 General: positive: No symptoms HEENT: positive: No symptoms Pulmonary: positive: No symptoms Cardiovascular: positive: No symptoms Gastrointestinal: positive: No symptoms Genitourinary: positive: No symptoms Musculoskeletal: positive: No symptoms Skin: positive: No symptoms Psychiatric: positive: No symptoms Objective - Patient Data Reviewed Vital Signs: Yes Vital Signs: Vital Signs x48h Temp Pulse Resp BP Pulse Ox 02/11/18 21:00 59 L 19 104/68 95 02/11/18 19:59 36.8 C 59 L 21 110/64 96 02/11/18 19:00 75 25 H 91/71 99 02/11/18 18:00 61 17 143/97 H 96 02/11/18 17:00 59 L 15 97/67 96 02/11/18 16:00 73 19 101/77 98 Weight: Weight 02/09/18 02/10/18 02/11/18 23:59 23:59 23:59 Weight (kg) 72 kg 75.5 kg 72.5 kg Intake & Output: Intake and Output Totals x24h 02/09/18 02/10/18 02/11/18 23:59 23:59 23:59 Intake Total 3514.567 4653.949 2704.034 Output Total 2878 4740 4080 Balance 636.567 -86.051 -1375.966 - Lab Results Lab Results: 02/11/18 04:15 02/10/18 05:00 Other Lab Results: Lab Results x24hrs 02/11/18 02/11/18 Range/Units 04:15 04:15 WBC 7.2 (4.8-10.8) x10^3/uL RBC 3.08 L (4.70-6.10) 10^6/uL Hgb 9.7 L (14.0-18.0) g/dL Hct 28.2 L (42.0-52.0) % MCV 91.4 (80.0-94.0) fL MCH 31.6 H (27.0-31.0) pg MCHC 34.6 (32.0-36.0) g/dL RDW 14.1 (12.0-15.0) % Plt Count 140 (130-450) 10^3/uL MPV 9.2 (7.4-11.4) fL Prealbumin 8 L (18-45) mg/dL Triglycerides 63 ( - 149) mg/dL - Current Medications Current Medications: Current Medications Generic Name Dose Route Start Last Admin Trade Name Freq PRN Reason Stop Dose Admin Diphenhydramine HCl 25 mg 02/05/18 21:07 02/11/18 22:06 Benadryl Inj IVP 25 mg 2200 PRN Administration Insomnia Hydromorphone HCl 2 mg 02/08/18 03:59 02/11/18 22:05 Dilaudid (Vial) IVP 2 mg Q2H PRN Administration PAIN Multivitamins 10 ml/ Amino Ac/ 2,010 mls @ 83 mls/hr 02/08/18 19:00 02/11/18 22:00 Electrol/Dextrose/Calcium IV 83 mls/hr Q24H [facility] Infusion Protocol Fat Emulsion Intravenous 250 mls @ 21 mls/hr 02/08/18 19:00 02/11/18 22:00 Intralipid 20% IV 21 mls/hr Q24H [facility] Infusion Chromium/Copper/Manganese/ 101 mls @ 5 mls/hr 02/08/18 19:00 02/11/18 22:00 Seleni/Zn 1 ml/ Sodium IV 5 mls/hr Chloride TPN/PPN [facility] Infusion Sodium Chloride 500 mls @ 20 mls/hr 02/08/18 21:52 02/11/18 22:00 Normal Saline 0.9% IV 20 mls/hr Q24H PRN Infusion TKO RATE TKO Morphine Sulfate 2 mg 02/04/18 04:56 02/08/18 17:15 Morphine IVP 2 mg Q2H PRN Administration PAIN Pantoprazole Sodium 40 mg 02/08/18 19:00 02/11/18 06:36 Protonix IVP 40 mg QDAC [facility] Administration Sodium Chloride 10 ml 02/04/18 03:49 02/11/18 18:52 Normal Saline Flush 0.9% IVP 10 ml PRN PRN Administration NEEDED PER PROVIDER ORDERS Sodium Chloride 10 ml 02/04/18 09:00 02/11/18 16:37 Normal Saline Flush 0.9% IVP 10 ml 0100,0900,1700 [facility] Administration - Physical Exam Wound/Incisions: positive: Dressing dry and intact General Appearance: positive: No acute distress Eyes Bilateral: positive: No lid inflammation, Conjunctivae nml, No scleral icterus ENT: positive: No signs of dehydration Neck: positive: Trachea midline Respiratory: positive: Chest non-tender, No respiratory distress, Breath sounds nml Cardiovascular: positive: Regular rate & rhythm Abdomen: positive: Nml bowel sounds Skin: positive: Color nml Extremities: positive: Non-tender Neurologic/Psychiatric: positive: Oriented x3 Impression/Plan - Problem List Problem List: D3 s/p emergent laparotomy to control bleeding, with takedown of ulcer to gallbladder/cystic artery, control of bleeding, cholecystectomy, pyloroplasty, drain placement 1) FEN On hyperalimentation. Will check for leak with a radiographic study tomorrow. If no leak can restart tube feeds through gastrostomy tube. Can replace with a AL-BURKETT tube later. This tube can be used for continuous or bolus feeds. 2) Bleeding Controlled. H&H stable. Do not expect further difficulties. Will require repeat EGD in 6 weeks to look for healing. 3) DVT Prophylaxis in place. 4) Drains Strip Ralph every shift. Will use NG for dye study tomorrow to look for leak.
[2018-02-12 04:46] LABS: HGB - HEMOGLOBIN 10.6 g/dL (14.0-18.0); MEAN CORPUSCULAR HEMOGLOBIN 32.2 pg (27.0-31.0); MEAN CORPUSCULAR HGB CONC 35.7 g/dL (32.0-36.0); MEAN CORPUSCULAR VOLUME 90.1 fL (80.0-94.0); MEAN PLATELET VOLUME 9.2 fL (7.4-11.4); RED BLOOD COUNT 3.28 10^6/uL (4.70-6.10); RED CELL DISTRIBUTION WIDTH 14.3 % (12.0-15.0); WHITE BLOOD COUNT 7.6 x10^3/uL (4.8-10.8)
[2018-02-12] MEDS: HYDROmorphone 2 MG/ML VIAL IVP PRN (05:46)
[2018-02-12] MEDS: SODIUM CHLORIDE FLUSH 0.9% 10 ML SYRINGE IVP SCH ×4 (05:46→23:56)
[2018-02-12] MEDS: PANTOPRAZOLE 40 MG VIAL IVP SCH (06:33)
[2018-02-12] MEDS: HYDROmorphone 1 MG/ML CARPUJECT IVP PRN ×5 (08:15→22:48)
--- NOTE | 2018-02-12 13:08 | PROVIDER PROGRESS NOTE ---
Subjective - General Admit Date: 02/04/18 Procedure Date: 02/08/18 Post Op Days: 6 Procedure Performed: Takedown ulcer to cystic artery, control bleeding, pyloroplasty, cholecyste - Review of Systems Wound/Incisions: positive: Dressing dry and intact Drain Type: 19 Fr Ralph Drain Output Description: Thin bloody Approximate mls Output: 5 General: positive: No symptoms HEENT: positive: No symptoms Pulmonary: positive: No symptoms Cardiovascular: positive: No symptoms Gastrointestinal: positive: No symptoms Genitourinary: positive: No symptoms Musculoskeletal: positive: No symptoms Skin: positive: No symptoms Psychiatric: positive: No symptoms Objective - Patient Data Reviewed Vital Signs: Yes Vital Signs: Vital Signs x48h Temp Pulse Resp BP Pulse Ox 02/12/18 12:00 67 14 102/71 97 02/12/18 11:00 74 16 111/75 97 02/12/18 10:00 63 16 105/65 97 02/12/18 09:00 63 15 106/76 96 02/12/18 08:00 37.2 C 63 14 99/64 94 02/12/18 07:00 62 15 99/64 02/12/18 06:00 58 L 15 101/70 95 Weight: Weight 02/10/18 02/11/18 02/12/18 23:59 23:59 23:59 Weight (kg) 75.5 kg 72.5 kg 69.5 kg Intake & Output: Intake and Output Totals x24h 02/10/18 02/11/18 02/12/18 23:59 23:59 23:59 Intake Total 4653.949 2833.034 1457.317 Output Total 4740 4080 1805 Balance -86.051 -1246.966 -347.683 - Lab Results Lab Results: 02/13/18 04:20 02/13/18 04:20 Other Lab Results: Lab Results x24hrs 02/12/18 02/12/18 02/12/18 Range/Units 11:35 05:54 04:24 WBC 7.6 (4.8-10.8) x10^3/uL RBC 3.28 L (4.70-6.10) 10^6/uL Hgb 10.6 L (14.0-18.0) g/dL Hct 29.6 L (42.0-52.0) % MCV 90.1 (80.0-94.0) fL MCH 32.2 H (27.0-31.0) pg MCHC 35.7 (32.0-36.0) g/dL RDW 14.3 (12.0-15.0) % Plt Count 203 (130-450) 10^3/uL MPV 9.2 (7.4-11.4) fL POC Whole Bld Glucose 113 H 113 H (70 - 100) mg/dL 02/12/18 02/11/18 02/11/18 Range/Units 00:09 18:46 11:40 WBC (4.8-10.8) x10^3/uL RBC (4.70-6.10) 10^6/uL Hgb (14.0-18.0) g/dL Hct (42.0-52.0) % MCV (80.0-94.0) fL MCH (27.0-31.0) pg MCHC (32.0-36.0) g/dL RDW (12.0-15.0) % Plt Count (130-450) 10^3/uL MPV (7.4-11.4) fL POC Whole Bld Glucose 105 H 95 117 H (70 - 100) mg/dL - Current Medications Current Medications: Current Medications Generic Name Dose Route Start Last Admin Trade Name Freq PRN Reason Stop Dose Admin Diphenhydramine HCl 25 mg 02/05/18 21:07 02/11/18 22:06 Benadryl Inj IVP 25 mg 2200 PRN Administration Insomnia Hydromorphone HCl 2 mg 02/08/18 03:59 02/12/18 05:46 Dilaudid (Vial) IVP 2 mg Q2H PRN Administration PAIN Hydromorphone HCl 1 mg 02/10/18 17:52 02/12/18 11:09 Dilaudid Inj Carp IVP 1 mg Q2H PRN Administration PAIN Multivitamins 10 ml/ Amino Ac/ 2,010 mls @ 83 mls/hr 02/08/18 19:00 02/12/18 12:00 Electrol/Dextrose/Calcium IV 83 mls/hr Q24H [facility] Infusion Protocol Fat Emulsion Intravenous 250 mls @ 21 mls/hr 02/08/18 19:00 02/12/18 06:28 Intralipid 20% IV Infused Q24H [facility] Infusion Chromium/Copper/Manganese/ 101 mls @ 5 mls/hr 02/08/18 19:00 02/12/18 11:50 Seleni/Zn 1 ml/ Sodium IV Infused Chloride TPN/PPN [facility] Infusion Sodium Chloride 500 mls @ 20 mls/hr 02/08/18 21:52 02/12/18 07:00 Normal Saline 0.9% IV 20 mls/hr Q24H PRN Infusion TKO RATE TKO Morphine Sulfate 2 mg 02/04/18 04:56 02/08/18 17:15 Morphine IVP 2 mg Q2H PRN Administration PAIN Pantoprazole Sodium 40 mg 02/08/18 19:00 02/12/18 06:33 Protonix IVP 40 mg QDAC B[facility] Administration Sodium Chloride 10 ml 02/04/18 03:49 02/11/18 18:52 Normal Saline Flush 0.9% IVP 10 ml PRN PRN Administration NEEDED PER PROVIDER ORDERS Sodium Chloride 10 ml 02/04/18 09:00 02/12/18 09:04 Normal Saline Flush 0.9% IVP 10 ml 0100,0900,1700 B[facility] Administration - Physical Exam Wound/Incisions: positive: Dressing dry and intact General Appearance: positive: No acute distress Eyes Bilateral: positive: No lid inflammation, Conjunctivae nml, No scleral icterus ENT: positive: No signs of dehydration Neck: positive: Trachea midline Respiratory: positive: Chest non-tender, No respiratory distress, Breath sounds nml Cardiovascular: positive: Regular rate & rhythm Abdomen: positive: Abnml bowel sounds (Slightly quiet - no flatus or BM yet.) Skin: positive: Color nml Extremities: positive: Non-tender, Nml appearance Neurologic/Psychiatric: positive: Oriented x3 Impression/Plan - Problem List Problem List: D4 s/p emergent laparotomy to control bleeding, with takedown of ulcer to gallbladder/cystic artery, control of bleeding, cholecystectomy, pyloroplasty, drain placement 1) FEN On hyperalimentation. Will check for leak with a radiographic study today. If no leak can restart tube feeds through gastrostomy tube. Can replace with a AL-BURKETT tube later. This tube can be used for continuous or bolus feeds. 2) Bleeding Controlled. H&H stable. Do not expect further difficulties. Will require repeat EGD in 6 weeks to look for healing. 3) DVT Prophylaxis in place. 4) Drains Strip Ralph every shift. Will use NG for dye study today to look for leak. If no leak can remove tube.
[2018-02-12] MEDS ORDERED: DIATR MEGLU/DIATRIZOATE SODIUM 120 ML BOTTLE PO ONE (14:21)
[2018-02-12] MEDS: MORPHINE 2 MG/ML SYRINGE IVP PRN ×2 (15:15→20:14)
--- NOTE | 2018-02-12 15:51 | XRAY Report ---
Procedure Date: 02/12/2018 Accession Number: [id number] / [id number] Procedure: FL - UGI W/O Air CPT Code: FULL RESULT: EXAM: UGI W/O Air DATE: 02/12/2018 2:18 PM CLINICAL HISTORY: s/p pyloroplasty please check for leak COMPARISON: X-ray 02/11/2018. TECHNIQUE: Live fluoroscopic images and spot images were obtained while Gastrografin contrast was administered through a nasoenteric tube. Fluoroscopic exposure time: 1.16 minutes. Number of fluoroscopic images: 13. Cine fluoroscopy recorded. FINDINGS: A final frontal radiograph demonstrates hyperdense prominence of the colonic haustra at the splenic flexure, nonspecific. No definite extravasation of contrast is identified. Mild holdup of contrast at the gastroesophageal junction is noted. Contrast traverses spontaneously into the stomach. 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 IMPRESSION: No extravasation of contrast from the stomach or esophagus. RADIA
[2018-02-12] MEDS: SODIUM CHLORIDE FLUSH 0.9% 10 ML SYRINGE IVP PRN ×2 (17:16→22:49)
--- NOTE | 2018-02-12 17:55 | PROVIDER PROGRESS NOTE ---
Subjective - Prog Note Date Prog Note Date: 02/12/18 Prog Note Time: 14:00 - Subjective Pt reports feeling: Improved Subjective: The patient feels well. His incision sites are relatively painless and he has had rumbling in his stomach but has not passed gas. He denies any fevers chills , chest pain or shortness of breath. Current Medications - Current Medications Current Medications: Active Medications Generic Name Dose Route Start Last Admin Trade Name Freq PRN Reason Stop Dose Admin Diphenhydramine HCl 25 mg 02/05/18 21:07 02/11/18 22:06 Benadryl Inj IVP 25 mg 2200 PRN Administration Insomnia Hydromorphone HCl 2 mg 02/08/18 03:59 02/12/18 05:46 Dilaudid (Vial) IVP 2 mg Q2H PRN Administration PAIN Hydromorphone HCl 1 mg 02/10/18 17:52 02/12/18 17:16 Dilaudid Inj Carp IVP 1 mg Q2H PRN Administration PAIN Multivitamins 10 ml/ Amino Ac/ 2,010 mls @ 83 mls/hr 02/08/18 19:00 02/12/18 13:31 Electrol/Dextrose/Calcium IV Infused Q24H [facility] Infusion Protocol Fat Emulsion Intravenous 250 mls @ 21 mls/hr 02/08/18 19:00 02/12/18 06:28 Intralipid 20% IV Infused Q24H [facility] Infusion Chromium/Copper/Manganese/ 101 mls @ 5 mls/hr 02/08/18 19:00 02/12/18 11:50 Seleni/Zn 1 ml/ Sodium IV Infused Chloride TPN/PPN [facility] Infusion Sodium Chloride 500 mls @ 20 mls/hr 02/08/18 21:52 02/12/18 13:31 Normal Saline 0.9% IV Infused Q24H PRN Infusion TKO RATE TKO Morphine Sulfate 2 mg 02/04/18 04:56 02/12/18 15:15 Morphine IVP 2 mg Q2H PRN Administration PAIN Ondansetron HCl 4 mg 02/04/18 03:49 Zofran Inj IVP Q6HR PRN Nausea / Vomiting Pantoprazole Sodium 40 mg 02/08/18 19:00 02/12/18 06:33 Protonix IVP 40 mg QDAC [facility] Administration Petrolatum 5 gm 02/08/18 14:27 Vaseline TOP Q4HR PRN Dry Lips Prochlorperazine Edisylate 10 mg 02/04/18 03:49 Compazine Inj IVP Q6HR PRN Nausea / Vomiting Promethazine HCl 25 mg 02/04/18 03:49 Phenergan Inj IM Q6HR PRN Nausea / Vomiting Sodium Chloride 10 ml 02/04/18 03:49 02/12/18 17:16 Normal Saline Flush 0.9% IVP 10 ml PRN PRN Administration NEEDED PER PROVIDER ORDERS Sodium Chloride 10 ml 02/04/18 09:00 02/12/18 17:16 Normal Saline Flush 0.9% IVP 10 ml 0100,0900,1700 [facility] Administration Jevity 6 bottle PEG DAILY 02/04/18 RX: Ferrous Sulfate 5 ml PEG DAILY 02/04/18 Objective - Vital Signs/Intake & Output Reviewed Vital Signs: Yes Vital Signs: Vital Signs x48h Temp Pulse Resp BP Pulse Ox 02/12/18 17:00 80 19 98/68 96 02/12/18 16:00 74 18 101/70 96 02/12/18 14:15 99.3 C H 84 18 101/79 96 02/12/18 13:00 75 21 105/65 97 02/12/18 12:00 67 14 102/71 97 02/12/18 11:00 74 16 111/75 97 02/12/18 10:00 63 16 105/65 97 Intake & Output: Intake & Output 02/09/18 02/10/18 02/11/18 02/12/18 23:59 23:59 23:59 23:59 Intake Total 3514.567 4653.949 2833.034 1712.850 Output Total 2878 4740 4080 2330 Balance 636.567 -86.051 -1246.966 -617.150 - Objective General Appearance: positive: No acute distress, Alert Eyes Bilateral: positive: Normal inspection, PERRL, EOMI, No lid inflammation, Conjunctivae nml, No scleral icterus ENT: positive: ENT inspection nml, Pharynx nml, No signs of dehydration Neck: positive: Nml inspection, Thyroid nml, No JVD, Trachea midline. negative : Thyromegaly Respiratory: positive: Chest non-tender, No respiratory distress, Breath sounds nml. negative: Wheezes, Rales, Rhonchi Cardiovascular: positive: Regular rate & rhythm, No murmur, No gallop Abdomen: positive: Non-tender, No organomegaly, No distention, Other (Bowel sounds are hypoactive). negative: Guarding, Rebound, Mass Back: positive: Nml inspection. negative: CVA tenderness (R), CVA tenderness (L ) Skin: positive: Color nml, No rash, Warm, Dry. negative: Cyanosis Extremities: positive: Non-tender, Full ROM, Nml appearance, No pedal edema Neurologic/Psychiatric: positive: Oriented x3, CN's nml (2-12), Motor nml, Sensation nml, Mood/affect nml - Lab Results Fish Bones: 02/12/18 04:24 02/10/18 05:00 Other Labs: Lab Results x24hrs 02/12/18 02/12/18 02/12/18 Range/Units 11:35 05:54 04:24 WBC 7.6 (4.8-10.8) x10^3/uL RBC 3.28 L (4.70-6.10) 10^6/uL Hgb 10.6 L (14.0-18.0) g/dL Hct 29.6 L (42.0-52.0) % MCV 90.1 (80.0-94.0) fL MCH 32.2 H (27.0-31.0) pg MCHC 35.7 (32.0-36.0) g/dL RDW 14.3 (12.0-15.0) % Plt Count 203 (130-450) 10^3/uL MPV 9.2 (7.4-11.4) fL POC Whole Bld Glucose 113 H 113 H (70 - 100) mg/dL 02/12/18 02/11/18 02/11/18 Range/Units 00:09 18:46 11:40 WBC (4.8-10.8) x10^3/uL RBC (4.70-6.10) 10^6/uL Hgb (14.0-18.0) g/dL Hct (42.0-52.0) % MCV (80.0-94.0) fL MCH (27.0-31.0) pg MCHC (32.0-36.0) g/dL RDW (12.0-15.0) % Plt Count (130-450) 10^3/uL MPV (7.4-11.4) fL POC Whole Bld Glucose 105 H 95 117 H (70 - 100) mg/dL - Diagnostic Imaging Diagnostic Imaging Results: positive: Final report reviewed Diagnostic Imaging Comments: EXAM: UGI W/O Air DATE: 02/12/2018 2:18 PM CLINICAL HISTORY: s/p pyloroplasty please check for leak COMPARISON: X-ray 02/11/2018. TECHNIQUE: Live fluoroscopic images and spot images were obtained while Gastrografin contrast was administered through a nasoenteric tube. Fluoroscopic exposure time: 1.16 minutes. Number of fluoroscopic images: 13. Cine fluoroscopy recorded. FINDINGS: A final frontal radiograph demonstrates hyperdense prominence of the colonic haustra at the splenic flexure, nonspecific. No definite extravasation of contrast is identified. Mild holdup of contrast at the gastroesophageal junction is noted. Contrast traverses spontaneously into the stomach. 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 IMPRESSION: No extravasation of contrast from the stomach or esophagus. ABX Reporting Has patient been on IV antibiotics over the past 48 hours?: No Assessment/Plan - Problem List (1) Duodenal ulcer with hemorrhage Impression: The patient is status post surgical repair of a duodenal ulcer with erosion into the cystic artery. He has rumbling in his stomach but still has not passed gas or had a bowel movement; nonetheless patient is significantly clinically improved and an upper GI series showed no leakage of contrast in the surgical areas. The patient's NG tube has been pulled as has 1 of his drains and the plan is to discharge the patient as soon as he is able to tolerate oral nutrition and is moving his bowels. This may be as soon as tomorrow. (2) Hyperglycemia Impression: The patient's glucose was elevated on admission and he does have a history of diabetes but hemoglobin A1c was 5.4. Any elevated glucose is likely due to stress. We are restarting the patient's tube feedings. We will continue to monitor. (3) Achalasia of esophagus Impression: The patient has a history of esophageal dysmotility and had a PEG tube placed for this. PEG tube feedings have been resumed. He will resume Carafate on postop day 5 or whenever surgery restarts it. (4) Peritoneal free air Impression: The patient had peritoneal free air found on chest x-ray after his EGD. This was likely due to the perforated duodenal ulcer which has been surgically repaired. His surgeon is not concerned. (5) Abnormal CT scan, lung Impression: There was an abnormal finding of consolidation at the right lung base which is believed to be atelectasis. Patient has not mounted an elevated white blood cell count and is not hypoxic nor is he showing any signs of dyspnea. He is receiving Zosyn for abdominal free air.
[2018-02-12] MEDS: FAT EMULSION 20% 250 ML IV SCH (20:09)
[2018-02-12] MEDS: TPN (CLINIMIX E 5/15) 2,000 ML with MULTIVITAMIN 10 ML IV SCH ×2 (20:10)
[2018-02-12 23:23] LABS: BASOPHILS # (AUTO) 0.1 10^3/uL (0.0-0.1); BASOPHILS % (AUTO) 0.7 %; EOSINOPHILS # (AUTO) 0.4 10^3/uL (0.0-0.7); EOSINOPHILS % (AUTO) 4.1 %; LYMPHOCYTES # (AUTO) 1.8 10^3/uL (1.5-3.5); LYMPHOCYTES % (AUTO) 20.4 %; MEAN CORPUSCULAR HEMOGLOBIN 31.1 pg (27.0-31.0); MEAN CORPUSCULAR HGB CONC 34.8 g/dL (32.0-36.0); MEAN CORPUSCULAR VOLUME 89.4 fL (80.0-94.0); MEAN PLATELET VOLUME 8.5 fL (7.4-11.4); MONOCYTES # (AUTO) 0.8 10^3/uL (0.0-1.0); MONOCYTES % (AUTO) 9.2 %; NEUTROPHILS # (AUTO) 5.7 10^3/uL (1.5-6.6); NEUTROPHILS % (AUTO) 65.6 %; PLT - PLATELET COUNT 245 10^3/uL (130-450); RED BLOOD COUNT 3.53 10^6/uL (4.70-6.10); RED CELL DISTRIBUTION WIDTH 13.8 % (12.0-15.0); WHITE BLOOD COUNT 8.7 x10^3/uL (4.8-10.8)
[2018-02-13] MEDS: SODIUM CHLORIDE FLUSH 0.9% 10 ML SYRINGE IVP SCH ×2 (00:01→08:33)
[2018-02-13 04:49] LABS: HGB - HEMOGLOBIN 10.4 g/dL (14.0-18.0); MEAN CORPUSCULAR HEMOGLOBIN 30.6 pg (27.0-31.0); MEAN CORPUSCULAR HGB CONC 33.9 g/dL (32.0-36.0); MEAN CORPUSCULAR VOLUME 90.5 fL (80.0-94.0); MEAN PLATELET VOLUME 8.9 fL (7.4-11.4); RED BLOOD COUNT 3.39 10^6/uL (4.70-6.10); RED CELL DISTRIBUTION WIDTH 13.8 % (12.0-15.0); WHITE BLOOD COUNT 5.8 x10^3/uL (4.8-10.8)
[2018-02-13 05:00] LABS: ALBUMIN 2.1 g/dL (3.2-5.5); ALBUMIN/GLOBULIN RATIO 0.6 (1.0-2.2); BILIRUBIN,TOTAL 0.7 mg/dL (0.2-1.0); CALCIUM 8.3 mg/dL (8.5-10.3); CREATININE 0.5 mg/dL (0.6-1.2); PHOSPHORUS 3.9 mg/dL (2.5-4.6); TOTAL PROTEIN 5.5 g/dL (6.7-8.2)
[2018-02-13 06:00] LABS: LDLD/HDL RATIO 2.3 (<3.6)
[2018-02-13] MEDS: PANTOPRAZOLE 40 MG VIAL IVP SCH (06:13)
[2018-02-13] MEDS: SODIUM CHLORIDE FLUSH 0.9% 10 ML SYRINGE IVP PRN ×3 (06:13→06:14)
[2018-02-13] MEDS ORDERED: PETROLATUM WHITE 5 GM PACKET TOP ONE (08:33)
[2018-02-13] MEDS ORDERED: POLYETHYLENE GLYCOL 3350 17 GM PACKET PO SCH (09:00)
[2018-02-13] MEDS: HYDROmorphone 2 MG/ML VIAL IVP PRN (10:02)
--- NOTE | 2018-02-13 11:45 | DISCHARGE SUMMARY ---
"Discharge Summary Admit Date: 02/04/18 Discharge Date: 02/13/18 Discharging Provider: MD Santosh Primary Care Provider: Jazzy Code Status: Attempt Resuscitation Condition at Discharge: Good Discharge Disposition: 01 Home, Self Care - DIAGNOSES Admission Diagnoses: Acute blood loss anemia from gastrointestinal bleed Discharge Diagnoses with Status of Each Condition: Acute blood loss anemia permanently stopped with surgery on 02/08/18 - HPI History of Present Illness: 53 year old male with history of patulous esophagus and gastric dysmotility presented with acute blood loss anemia after taking Ibuprofen for musculoskeletal pain. Urgent consult sought by Dr. Aponte to id and EGD revealed a deep duodenal bulb ulcer with an actively bleeding vessel that was controlled with injection of epinephrine and thrombin. The patient then rebled on 02/08/[address] Arevalo took him to the endoscopy suite to see whether the vessel could be controlled with clips but it could not. Emergently the patient was taken to the OR where an laparotomy with takedown of the ulcer (adherent to the cystic artery as the source of the bleeding (extraordinarily rare) and pyloroplasty and cholecystectomy was performed. Postoperatively the patient did well with an UGI done 02/12/18 showing no extravasation of contrast. Tube feeding were restarted and the patient has bowel function (bowel movements and gas). Drain, NG and cordis removed. H&H stable. - CONSULTS | PROCEDURES Consultations: MD Santosh on 02/04/18 Procedures: EGD with control of bleeding (injection) 02/04/18 EGD for control of bleeding (clips) 02/08/18 unsuccessful Laparotomy, with takedown ulcer, pyloroplasty and cholecystectomy 02/08/18 successful in controlling bleeding - HOSPITAL COURSE Hospital Course: See above - ALLERGIES Allergies/Adverse Reactions: Allergies Allergy/AdvReac Type Severity Reaction Status Date / Time No Known Drug Allergies Allergy Verified 02/04/18 02:35 - MEDICATIONS Home Medications: Ambulatory Orders Medication Instructions Recorded Confirmed Ferrous Sulfate 5 ml PEG DAILY 02/04/18 02/04/18 Jevity 6 bottle PEG DAILY 02/04/18 02/04/18 - PHYSICAL EXAM AT DISCHARGE General Appearance: positive: No acute distress Eyes Bilateral: positive: No lid inflammation, Conjunctivae nml, No scleral icterus Neck: positive: Trachea midline Respiratory: positive: Chest non-tender, No respiratory distress, Breath sounds nml Cardiovascular: positive: Regular rate & rhythm Abdomen: positive: Nml bowel sounds, Tenderness (Mild incisional.) Skin: positive: Color nml Extremities: positive: Nml appearance Neurologic/Psychiatric: positive: Oriented x3 - LABS Result Diagrams: 02/13/18 04:20 02/13/18 04:20 - FOLLOW UP Follow Up: MD Santosh in 7-10 days for staple removal and to plan repeat EGD to check for complete healing in about 6 weeks after surgery Deborah Purcell for any medical issues in next 14 days or so - TIME SPENT Time Spent in Discharge (Minutes): 45"
--- NOTE | 2018-02-13 12:05 | Discharge Plan ---
Discharge Plan Disposition: 01 Home, Self Care Condition: Good Prescriptions: Hydrocodone/Acetaminophen [Hydrocodone-Acetamin 5-217/10] 10 ml PO QID #200 solution Omeprazole Magnesium [Prilosec] 10 mg PO BID #90 [id number] Activity Restrictions: No lifting >15 pounds for 6 weeks. Shower Restrictions: No Driving Restrictions: No Weight Bearing: Full Weight Additional Instructions or Follow Up instructions: Call with surgical questions/concerns. Diet is tube feeding. No Smoking: If you smoke, Please STOP! Call for help. Follow-up with: Deborah Purcell ARNP [Primary Care Provider] - Nilton Frost MD [Provider Admit Priv/Credential] -
[2018-02-13 12:14] VITALS: BP 99/61
--- NOTE | 2018-02-13 17:49 | PROVIDER PROGRESS NOTE ---
Subjective - Prog Note Date Prog Note Date: 02/13/18 Prog Note Time: 10:30 - Subjective Subjective: The patient feels well. He had a bowel movement last night, finally, and although this had some maroon color to it, this was not unexpected as the patient had had open bowel surgery. He denies any fevers, chills, shortness of breath, chest pain, and his abdominal incisions are only slightly tender. Current Medications - Current Medications Current Medications: Generic Name Dose Route Start Last Admin Trade Name Freq PRN Reason Stop Dose Admin Diphenhydramine HCl 25 mg 02/05/18 21:07 02/11/18 22:06 Benadryl Inj IVP 25 mg 2200 PRN Administration Insomnia Hydromorphone HCl 2 mg 02/08/18 03:59 02/12/18 05:46 Dilaudid (Vial) IVP 2 mg Q2H PRN Administration PAIN Hydromorphone HCl 1 mg 02/10/18 17:52 02/12/18 17:16 Dilaudid Inj Carp IVP 1 mg Q2H PRN Administration PAIN Multivitamins 10 ml/ Amino Ac/ 2,010 mls @ 83 mls/hr 02/08/18 19:00 02/12/18 13:31 Electrol/Dextrose/Calcium IV Infused Q24H BENTLEY Infusion Protocol Fat Emulsion Intravenous 250 mls @ 21 mls/hr 02/08/18 19:00 02/12/18 06:28 Intralipid 20% IV Infused Q24H BENTLEY Infusion Chromium/Copper/Manganese/ 101 mls @ 5 mls/hr 02/08/18 19:00 02/12/18 11:50 Seleni/Zn 1 ml/ Sodium IV Infused Chloride TPN/PPN BENTLEY Infusion Sodium Chloride 500 mls @ 20 mls/hr 02/08/18 21:52 02/12/18 13:31 Normal Saline 0.9% IV Infused Q24H PRN Infusion TKO RATE TKO Morphine Sulfate 2 mg 02/04/18 04:56 02/12/18 15:15 Morphine IVP 2 mg Q2H PRN Administration PAIN Ondansetron HCl 4 mg 02/04/18 03:49 Zofran Inj IVP Q6HR PRN Nausea / Vomiting Pantoprazole Sodium 40 mg 02/08/18 19:00 02/12/18 06:33 Protonix IVP 40 mg QDAC BENTLEY Administration Petrolatum 5 gm 02/08/18 14:27 Vaseline TOP Q4HR PRN Dry Lips Prochlorperazine Edisylate 10 mg 02/04/18 03:49 Compazine Inj IVP Q6HR PRN Nausea / Vomiting Promethazine HCl 25 mg 02/04/18 03:49 Phenergan Inj IM Q6HR PRN Nausea / Vomiting Sodium Chloride 10 ml 02/04/18 03:49 02/12/18 17:16 Normal Saline Flush 0.9% IVP 10 ml PRN PRN Administration NEEDED PER PROVIDER ORDERS Sodium Chloride 10 ml 02/04/18 09:00 02/12/18 17:16 Normal Saline Flush 0.9% IVP 10 ml 0100,0900,1700 BENTLEY Administration Jevity 6 bottle PEG DAILY 02/04/18 RX: Ferrous Sulfate 5 ml PEG DAILY 02/04/18 Objective - Vital Signs/Intake & Output Reviewed Vital Signs: Yes Vital Signs: Vital Signs x48h Temp Pulse Resp BP Pulse Ox 02/13/18 12:13 36.6 C 111 H 16 99/61 95 Intake & Output: Intake & Output 02/10/18 02/11/18 02/12/18 02/13/18 23:59 23:59 23:59 23:59 Intake Total 4653.949 2833.034 1712.850 240 Output Total 4740 4080 2330 600 Balance -86.051 -1246.966 -617.150 -360 - Objective General Appearance: positive: No acute distress, Alert Eyes Bilateral: positive: Normal inspection, PERRL, EOMI, No lid inflammation, Conjunctivae nml, No scleral icterus ENT: positive: ENT inspection nml, Pharynx nml, No signs of dehydration Neck: positive: Nml inspection, Thyroid nml, No JVD, Trachea midline. negative : Thyromegaly Respiratory: positive: Chest non-tender, No respiratory distress, Breath sounds nml. negative: Wheezes, Rales, Rhonchi Cardiovascular: positive: Regular rate & rhythm, No murmur, No gallop Abdomen: positive: Non-tender, No organomegaly, Nml bowel sounds, No distention. negative: Guarding, Rebound Back: positive: Nml inspection. negative: CVA tenderness (R), CVA tenderness (L ) Skin: positive: Color nml, No rash, Warm, Dry. negative: Cyanosis Extremities: positive: Non-tender, Full ROM, Nml appearance, No pedal edema Neurologic/Psychiatric: positive: Oriented x3, CN's nml (2-12), Motor nml, Sensation nml, Mood/affect nml - Lab Results Fish Bones: 02/13/18 04:20 02/13/18 04:20 Other Labs: Lab Results x24hrs 02/13/18 02/13/18 02/13/18 Range/Units 06:03 04:20 04:20 WBC 5.8 (4.8-10.8) x10^3/uL RBC 3.39 L (4.70-6.10) 10^6/uL Hgb 10.4 L (14.0-18.0) g/dL Hct 30.7 L (42.0-52.0) % MCV 90.5 (80.0-94.0) fL MCH 30.6 (27.0-31.0) pg MCHC 33.9 (32.0-36.0) g/dL RDW 13.8 (12.0-15.0) % Plt Count 234 (130-450) 10^3/uL MPV 8.9 (7.4-11.4) fL Neut # (Auto) (1.5-6.6) 10^3/uL Lymph # (Auto) (1.5-3.5) 10^3/uL [place] # (Auto) (0.0-1.0) 10^3/uL Eos # (Auto) (0.0-0.7) 10^3/uL Baso # (Auto) (0.0-0.1) 10^3/uL Absolute Nucleated RBC x10^3/uL Nucleated RBC % /100WBC Sodium 137 (135-145) mmol/L Potassium 4.4 (3.5-5.0) mmol/L Chloride 103 (101-111) mmol/L Carbon Dioxide 30 (21-32) mmol/L Anion Gap 4.0 L (6-13) BUN 18 (6-20) mg/dL Creatinine 0.5 L (0.6-1.2) mg/dL Estimated GFR (MDRD) 174 (>89) Glucose 119 H (70-100) mg/dL POC Whole Bld Glucose 113 H (70 - 100) mg/dL Calcium 8.3 L (8.5-10.3) mg/dL Phosphorus 3.9 (2.5-4.6) mg/dL Magnesium 2.0 (1.7-2.8) mg/dL Total Bilirubin 0.7 (0.2-1.0) mg/dL AST 30 (10-42) IU/L ALT 26 (10-60) IU/L Alkaline Phosphatase 60 (42-121) IU/L Total Protein 5.5 L (6.7-8.2) g/dL Albumin 2.1 L (3.2-5.5) g/dL Globulin 3.4 (2.1-4.2) g/dL Albumin/Globulin Ratio 0.6 L (1.0-2.2) Prealbumin 10 L (18-45) mg/dL Triglycerides 38 ( - 149) mg/dL LDL Cholesterol Direct 51 ( - 129) mg/dL HDL Cholesterol 22 L (60 - ) mg/dL dLDL/HDL Ratio 2.3 (<3.6) 02/12/18 02/12/18 02/12/18 Range/Units 23:53 23:04 18:06 WBC 8.7 (4.8-10.8) x10^3/uL RBC 3.53 L (4.70-6.10) 10^6/uL Hgb 11.0 L (14.0-18.0) g/dL Hct 31.6 L (42.0-52.0) % MCV 89.4 (80.0-94.0) fL MCH 31.1 H (27.0-31.0) pg MCHC 34.8 (32.0-36.0) g/dL RDW 13.8 (12.0-15.0) % Plt Count 245 (130-450) 10^3/uL MPV 8.5 (7.4-11.4) fL Neut # (Auto) 5.7 (1.5-6.6) 10^3/uL Lymph # (Auto) 1.8 (1.5-3.5) 10^3/uL [place] # (Auto) 0.8 (0.0-1.0) 10^3/uL Eos # (Auto) 0.4 (0.0-0.7) 10^3/uL Baso # (Auto) 0.1 (0.0-0.1) 10^3/uL Absolute Nucleated RBC 0.00 x10^3/uL Nucleated RBC % 0.0 /100WBC Sodium (135-145) mmol/L Potassium (3.5-5.0) mmol/L Chloride (101-111) mmol/L Carbon Dioxide (21-32) mmol/L Anion Gap (6-13) BUN (6-20) mg/dL Creatinine (0.6-1.2) mg/dL Estimated GFR (MDRD) (>89) Glucose (70-100) mg/dL POC Whole Bld Glucose 98 92 (70 - 100) mg/dL Calcium (8.5-10.3) mg/dL Phosphorus (2.5-4.6) mg/dL Magnesium (1.7-2.8) mg/dL Total Bilirubin (0.2-1.0) mg/dL AST (10-42) IU/L ALT (10-60) IU/L Alkaline Phosphatase (42-121) IU/L Total Protein (6.7-8.2) g/dL Albumin (3.2-5.5) g/dL Globulin (2.1-4.2) g/dL Albumin/Globulin Ratio (1.0-2.2) Prealbumin (18-45) mg/dL Triglycerides ( - 149) mg/dL LDL Cholesterol Direct ( - 129) mg/dL HDL Cholesterol (60 - ) mg/dL dLDL/HDL Ratio (<3.6) - Diagnostic Imaging Diagnostic Imaging Results: positive: Final report reviewed Diagnostic Imaging Comments: EXAM: UGI W/O Air DATE: 02/12/2018 2:18 PM CLINICAL HISTORY: s/p pyloroplasty please check for leak COMPARISON: X-ray 02/11/2018. TECHNIQUE: Live fluoroscopic images and spot images were obtained while Gastrografin contrast was administered through a nasoenteric tube. Fluoroscopic exposure time: 1.16 minutes. Number of fluoroscopic images: 13. Cine fluoroscopy recorded. FINDINGS: A final frontal radiograph demonstrates hyperdense prominence of the colonic haustra at the splenic flexure, nonspecific. No definite extravasation of contrast is identified. Mild holdup of contrast at the gastroesophageal junction is noted. Contrast traverses spontaneously into the stomach. 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 IMPRESSION: No extravasation of contrast from the stomach or esophagus. ABX Reporting Has patient been on IV antibiotics over the past 48 hours?: Yes Assessment/Plan - Problem List (1) Duodenal ulcer with hemorrhage Impression: The patient is status post surgical repair of a duodenal ulcer with erosion into the cystic artery. He has rumbling in his stomach but still has not passed gas or had a bowel movement; nonetheless patient is significantly clinically improved and an upper GI series showed no leakage of contrast in the surgical areas. The patient's NG tube has been pulled as has 1 of his drains and the plan has been to discharge the patient as soon as he is able to tolerate oral nutrition and is moving his bowels. This is today. (2) Hyperglycemia Impression: The patient's glucose was elevated on admission and he does have a history of diabetes but hemoglobin A1c was 5.4. Any elevated glucose is likely due to stress. We have restarted the patient's tube feedings. (3) Achalasia of esophagus Impression: The patient has a history of esophageal dysmotility and had a PEG tube placed for this. PEG tube feedings have been resumed. (4) Peritoneal free air Impression: The patient had peritoneal free air found on chest x-ray after his EGD. This was likely due to the perforated duodenal ulcer which has been surgically repaired. His surgeon is not concerned. (5) Abnormal CT scan, lung Impression: There was an abnormal finding of consolidation at the right lung base which is believed to be atelectasis. Patient has not mounted an elevated white blood cell count and is not hypoxic nor is he showing any signs of dyspnea. He is receiving Zosyn for abdominal free air. He will not be sent home on antibiotics.
--- NOTE | 2018-03-02 06:56 | PROCEDURE REPORT ---
DATE OF SERVICE: 02/08/2018 Physician: Jose Daniel Arevalo MD PROCEDURE PERFORMED: Placement of right internal jugular central venous line with ultrasound guidance. DESCRIPTION OF PROCEDURE: The patient was already intubated for emergency surgery. His right neck was then prepped and draped in the usual sterile fashion. The ultrasound was then used to locate the internal jugular vein on the right side. An 18 gauge needle was then inserted through the skin and into the internal jugular vein under direct vision of ultrasound. There was return of dark nonpulsatile blood. A guidewire was placed through the needle, and into the internal jugular vein. The needle was then withdrawn. A dilator was placed over the wire and removed. A triple lumen catheter was then placed over the guidewire and the guidewire was removed. There was good aspiration of blood through the ports with the ports being flushed easily. The catheter was secured to the skin using 3-0 silk suture. Dry dressings were then placed upon the insertion site. A STAT chest x-ray was ordered after the procedure. There were no immediate complications. TD: 03/02/2018 06:29 JENNYFER
== END 2018-02-13 13:25 | disposition home or self-care (01) | DRG 327 ==
LOC: ED 02:13 → MS2 03:49 → OBSVTOIN 03:49 → ICU 08:48 → MS3 02-12 21:41
PROVIDERS: ADMIT Internal Medicine; ATTEND Surgery
PROC: 0DJ08ZZ Inspection of Upper Intestinal Tract, Via Natural or Artificial Opening Endoscopic (ICD-10-PCS; 2018-02-04)
PROC: 3E0G8GC Introduction of Other Therapeutic Substance into Upper GI, Via Natural or Artificial Opening Endoscopic (ICD-10-PCS; 2018-02-04)
PROC: 30233N1 Transfusion of Nonautologous Red Blood Cells into Peripheral Vein, Percutaneous Approach (ICD-10-PCS; 2018-02-05)
PROC: 3E0436Z Introduction of Nutritional Substance into Central Vein, Percutaneous Approach (ICD-10-PCS; 2018-02-08)
PROC: 0W3P8ZZ Control Bleeding in Gastrointestinal Tract, Via Natural or Artificial Opening Endoscopic (ICD-10-PCS; 2018-02-08)
PROC: 05H333Z Insertion of Infusion Device into Right Innominate Vein, Percutaneous Approach (ICD-10-PCS; 2018-02-08)
PROC: 0DQ90ZZ Repair Duodenum, Open Approach (ICD-10-PCS; principal; 2018-02-08 00:41)
PROC: 0FT40ZZ Resection of Gallbladder, Open Approach (ICD-10-PCS; 2018-02-08 00:41)
PROC: 04LY0ZZ Occlusion of Lower Artery, Open Approach (ICD-10-PCS; 2018-02-08 00:41)
DX: K26.6 Chronic or unspecified duodenal ulcer with both hemorrhage and perforation (principal); D62 Acute posthemorrhagic anemia; E44.0 Moderate protein-calorie malnutrition; I95.9 Hypotension, unspecified; T39.315A Adverse effect of propionic acid derivatives, initial encounter; K22.4 Dyskinesia of esophagus; K22.8 Other specified diseases of esophagus; K66.0 Peritoneal adhesions (postprocedural) (postinfection); R55 Syncope and collapse; K44.9 Diaphragmatic hernia without obstruction or gangrene; K81.9 Cholecystitis, unspecified; Q40.8 Other specified congenital malformations of upper alimentary tract; M79.1 Myalgia; K21.9 Gastro-esophageal reflux disease without esophagitis; Z68.20 Body mass index [BMI] 20.0-20.9, adult; Z63.6 Dependent relative needing care at home; Z93.1 Gastrostomy status; Z83.3 Family history of diabetes mellitus; Z87.891 Personal history of nicotine dependence
CPT/HCPCS: 36415; 71045; 74150; 74240; 80053; 83036; 83605; 83690; 83718; 83721; 83735; 84100; 84134; 84478; 84484; 85014; 85018; 85025; 85027; 85610; 85730; 86850; 86900; 86901; 86920; 87150; 87338; 88304; 93005; 96361; 96374; 99284; 99285

== ENCOUNTER 2018-03-09 06:13 | Day surgery (SDC) | payer MEDICAID ==
[2018-03-09] MEDS ORDERED: LACTATED RINGERS 1,000 ML IV ONE (06:28)
--- NOTE | 2018-03-09 07:17 | ANESTHESIA ---
Pre-Anesthesia VS, & Labs - Diagnosis history of peptic ulcer - Procedure EGD, feeding tube placement Vital Signs: Temp Pulse Resp BP Pulse Ox 36.7 C 16 95/75 97 03/09/18 06:29 03/09/18 06:29 03/09/18 06:29 03/09/18 06:29 hr 75 Height 5 ft 8 in Weight (kg) 63 kg Body Mass Index 23.3 - NPO >8 hours Last Fluid Intake: except 4 am coffee Home Medications and Allergies Home Medications: Ambulatory Orders Medication Instructions Recorded Confirmed Jevity 6 bottle PEG DAILY 02/04/18 03/09/18 Omeprazole Magnesium [Prilosec] 10 mg PO BID #90 suspdr.pkt 02/13/18 03/09/18 Allergies/Adverse Reactions: Allergies Allergy/AdvReac Type Severity Reaction Status Date / Time No Known Drug Allergies Allergy Verified 02/04/18 02:35 Anes History & Medical History - Anesthetic History Anesthesia Complications: reports: No previous complications - Medical History Cardiovascular: reports: None Pulmonary: reports: None Gastrointestinal: reports: GERD, GI bleed, Ulcers, Other Urinary: reports: None Neuro: reports: None, Head injury (at 18, no residuals) Musculoskeletal: reports: Other Endocrine/Autoimmune: reports: None Blood Disorders: reports: Anemia Skin: reports: None Smoking Status: Light tobacco smoker - Surgical History General: Appendectomy, EGD Orthopedic: Other Exam General: Alert Dental: WNL Mouth Opening: Greater than 4 Fingerbreadths Neck Mobility: Normal Mallampati classification: I Respiratory: Lungs clear Cardiovascular: Regular rate Plan Anesthesia Type: MAC Consent for Procedure(s) Verified and Reviewed: Yes Code Status: Attempt Resuscitation ASA classification: 2-Mild systemic disease Is this case an emergency?: No
[2018-03-09] MEDS ORDERED: LIDO GARGLE 30 ML BOTTLE ONE (07:27)
[2018-03-09] MEDS ORDERED: PROPOFOL 200 MG/20 ML VIAL IVP ONE (07:30)
[2018-03-09] MEDS ORDERED: LIDOCAINE-MPF 2% 5 ML VIAL IM ONE (07:30)
[2018-03-09] MEDS ORDERED: fentaNYL 100 MCG/2 ML VIAL IVP ONE (07:30)
[2018-03-09] MEDS ORDERED: LIDO GARGLE 30 ML BOTTLE PO ONE (08:02)
[2018-03-09 09:12] VITALS: BP 96/62
== END 2018-03-09 06:14 | disposition home or self-care (01) ==
LOC: SDS 06:13
PROVIDERS: ATTEND Surgery
PROC: 0DJ08ZZ Inspection of Upper Intestinal Tract, Via Natural or Artificial Opening Endoscopic (ICD-10-PCS; principal; 2018-03-09 07:30)
DX: Z09 Encounter for follow-up examination after completed treatment for conditions other than malignant neoplasm (principal); Z87.11 Personal history of peptic ulcer disease; F17.290 Nicotine dependence, other tobacco product, uncomplicated; Z93.1 Gastrostomy status; K22.0 Achalasia of cardia; K21.9 Gastro-esophageal reflux disease without esophagitis
CPT/HCPCS: 43235; A9270; J7120

== ENCOUNTER 2018-07-01 11:05 | Outpatient (CLI) | payer MEDICAID ==
[2018-07-01 19:25] LABS: BASOPHILS # (AUTO) 0.1 10^3/uL (0.0-0.1); BASOPHILS % (AUTO) 0.5 %; EOSINOPHILS # (AUTO) 0.1 10^3/uL (0.0-0.7); EOSINOPHILS % (AUTO) 1.2 %; HGB - HEMOGLOBIN 14.6 g/dL (14.0-18.0); LYMPHOCYTES # (AUTO) 1.5 10^3/uL (1.5-3.5); LYMPHOCYTES % (AUTO) 12.3 %; MEAN CORPUSCULAR HGB CONC 32.7 g/dL (32.0-36.0); MEAN CORPUSCULAR VOLUME 91.9 fL (80.0-94.0); MEAN PLATELET VOLUME 9.3 fL (7.4-11.4); MONOCYTES # (AUTO) 1.1 10^3/uL (0.0-1.0); MONOCYTES % (AUTO) 8.7 %; NEUTROPHILS # (AUTO) 9.5 10^3/uL (1.5-6.6); NEUTROPHILS % (AUTO) 77.3 %; PLT - PLATELET COUNT 215 10^3/uL (130-450); RED BLOOD COUNT 4.87 10^6/uL (4.70-6.10); WHITE BLOOD COUNT 12.2 x10^3/uL (4.8-10.8)
[2018-07-01 19:37] LABS: ALBUMIN 3.9 g/dL (3.2-5.5); ALBUMIN/GLOBULIN RATIO 1.1 (1.0-2.2); BILIRUBIN,TOTAL 0.7 mg/dL (0.2-1.0); CALCIUM 8.9 mg/dL (8.5-10.3); CREATININE 0.6 mg/dL (0.6-1.2); MAGNESIUM 2.4 mg/dL (1.7-2.8); PHOSPHORUS 2.8 mg/dL (2.5-4.6); TOTAL PROTEIN 7.6 g/dL (6.7-8.2)
== END 2018-07-01 23:59 | disposition home or self-care (01) ==
LOC: LAB.N 11:05
PROVIDERS: ATTEND Physician Assistant Medical
DX: D50.9 Iron deficiency anemia, unspecified (principal); K22.4 Dyskinesia of esophagus; Z93.1 Gastrostomy status
CPT/HCPCS: 36415; 80053; 82306; 83735; 84100; 85025

== ENCOUNTER 2018-11-28 13:31 | Outpatient (CLI) | payer MEDICAID ==
[2018-11-28] MEDS ORDERED: IOVERSOL 320 50 ML VIAL ONE (14:29)
[2018-11-28] MEDS ORDERED: IOVERSOL 320 100 ML VIAL IVP ONE ×2 (14:29→14:52)
--- NOTE | 2018-11-30 08:01 | CT Report ---
Reason: WEIGHT LOSS Procedure Date: 11/28/2018 Accession Number: [id number] / [id number] Procedure: CT - CHEST W CPT Code: FULL RESULT: EXAM: CT CHEST EXAM DATE: 11/28/2018 02:49 PM. CLINICAL HISTORY: WEIGHT LOSS. COMPARISONS: CHEST 1 VIEW 02/11/2018 2:58 PM. TECHNIQUE: Routine helical CT imaging was performed through the chest. IV contrast: None. Reconstructions: Coronal and sagittal. In accordance with CT protocol optimization, one or more of the following dose reduction techniques were utilized for this exam: automated exposure control, adjustment of mA and/or KV based on patient size, or use of iterative reconstructive technique. FINDINGS: Lungs/Pleura: Linear atelectasis right lung base. No nodules, bronchial thickening, consolidation, or edema. Pulmonary vasculature is normal. No pericardial or pleural effusion. No pneumothorax. Mediastinum: Markedly dilated fluid-filled esophagus again visualized. No adenopathy or masses. The heart and great vessels are normal. Bones: Unremarkable. Visualized Abdomen: Gastrostomy Other: None. IMPRESSION: 1. Markedly dilated esophagus again visualized.? Achalasia RADIA
--- NOTE | 2018-11-30 08:01 | CT Report ---
Reason: WEIGHT LOSS Procedure Date: 11/28/2018 Accession Number: [id number] / [id number] Procedure: CT - Abdomen/Pelvis W CPT Code: FULL RESULT: EXAM: CT ABDOMEN AND PELVIS EXAM DATE: 11/28/2018 02:39 PM. CLINICAL HISTORY: WEIGHT LOSS. Not nonfunctioning esophagus. G-tube COMPARISONS: ABDOMEN/PELVIS W/ 10/30/2016 5:16 PM. TECHNIQUE: Routine helical CT imaging was performed through the abdomen and pelvis. IV contrast: OPTI 320 75 ML. Enteric contrast: No. Reconstructions: Coronal and sagittal. In accordance with CT protocol optimization, one or more of the following dose reduction techniques were utilized for this exam: automated exposure control, adjustment of mA and/or KV based on patient size, or use of iterative reconstructive technique. FINDINGS: Lung Bases: Marked dilatation of the distal esophagus. Liver: Normal. No masses. Gallbladder/Bile Ducts: Post cholecystectomy Spleen: Normal. Pancreas: Normal. Adrenal Glands: Normal. Kidneys: Right kidney nonobstructing lower pole 3 mm calcification. Left kidney subcentimeter densities too small to characterize. Peritoneal Cavity/Bowel: Gastrostomy in place.. No free fluid, free air or adenopathy. No masses or acute inflammatory process. Pelvic Organs: Prostate calcifications. The bladder and visualized pelvic organs are within normal limits. Vasculature: No aneurysms or other significant abnormality. Bones: DJD spine Other: None. IMPRESSION: 1. Marked dilatation of distal esophagus again visualized. 2. Right kidney nonobstructing lower pole 3 mm calcification. Left kidney subcentimeter densities too small to characterize. 3. No obvious etiology for the weight loss RADIA
== END 2018-11-28 13:32 | disposition home or self-care (01) ==
LOC: DI 13:31
PROVIDERS: ATTEND Surgery
DX: R63.4 Abnormal weight loss (principal); K22.8 Other specified diseases of esophagus; N28.89 Other specified disorders of kidney and ureter
CPT/HCPCS: 71260; 74177; Q9967

== ENCOUNTER 2019-01-29 07:46 | Outpatient (CLI) | payer MEDICAID ==
[2019-01-29 12:48] LABS: BASOPHILS # (AUTO) 0.1 10^3/uL (0.0-0.1); BASOPHILS % (AUTO) 0.8 %; EOSINOPHILS # (AUTO) 0.4 10^3/uL (0.0-0.7); EOSINOPHILS % (AUTO) 3.3 %; HGB - HEMOGLOBIN 14.3 g/dL (14.0-18.0); LYMPHOCYTES # (AUTO) 1.8 10^3/uL (1.5-3.5); LYMPHOCYTES % (AUTO) 14.7 %; MEAN CORPUSCULAR HEMOGLOBIN 30.7 pg (27.0-31.0); MEAN CORPUSCULAR HGB CONC 32.3 g/dL (32.0-36.0); MEAN CORPUSCULAR VOLUME 95.1 fL (80.0-94.0); MEAN PLATELET VOLUME 10.6 fL (7.4-11.4); MONOCYTES # (AUTO) 0.9 10^3/uL (0.0-1.0); MONOCYTES % (AUTO) 7.3 %; NEUTROPHILS # (AUTO) 9.1 10^3/uL (1.5-6.6); NEUTROPHILS % (AUTO) 73.4 %; PLT - PLATELET COUNT 251 10^3/uL (130-450); RED BLOOD COUNT 4.66 10^6/uL (4.70-6.10); RED CELL DISTRIBUTION WIDTH 12.9 % (12.0-15.0); WHITE BLOOD COUNT 12.4 x10^3/uL (4.8-10.8)
== END 2019-01-29 23:59 | disposition home or self-care (01) ==
LOC: LAB.N 07:46
PROVIDERS: ATTEND Physician Assistant Medical
DX: D50.9 Iron deficiency anemia, unspecified (principal)
CPT/HCPCS: 36415; 85025

== ENCOUNTER 2019-03-14 07:15 | Emergency (ER) | payer MEDICAID ==
--- NOTE | 2019-03-14 07:31 | ED Physician Documentation ---
PD HPI ABD PAIN - Stated complaint Stated Complaint: FEEDING TUBE - Chief complaint Chief Complaint: General - History obtained from History obtained from: Patient - History of Present Illness Timing - onset: Today Timing - duration: Hours Timing - details: Abrupt onset (he found he had some leaking around his g tube last night and it would not infuse this morning. He depends on the infusion for all intake, so here for replacement of it.) Quality: No: Cramping, Aching Associated symptoms: No: Nausea, Vomiting, Diarrhea Similar symptoms before: Diagnosis (get g tube replacement every few months, and has had it malfunction couple of times. Has spare tube with him.) Review of Systems Constitutional: denies: Fever, Chills, Myalgias GI: denies: Abdominal Pain, Nausea, Vomiting, Diarrhea Skin: denies: Rash, Lesions PD PAST MEDICAL HISTORY - Past Medical History Cardiovascular: None Respiratory: None Neuro: None, Head injury (at 18, no residuals) Endocrine/Autoimmune: None GI: GERD, GI bleed, Ulcers, Other : None HEENT: None Psych: None Musculoskeletal: Other Derm: None - Past Surgical History Past Surgical History: Yes General: Appendectomy, EGD Ortho: Other - Present Medications Home Medications: Ambulatory Orders Medication Instructions Recorded Confirmed Jevity 6 bottle PEG DAILY 02/04/18 03/09/18 Omeprazole Magnesium [Prilosec] 10 mg PO BID #90 suspdr.pkt 02/13/18 03/09/18 - Allergies Allergies/Adverse Reactions: Allergies Allergy/AdvReac Type Severity Reaction Status Date / Time No Known Drug Allergies Allergy Verified 03/14/19 07:27 - Social History Does the pt smoke?: No Smoking Status: Light tobacco smoker Does the pt drink ETOH?: No Does the pt have substance abuse?: No - Immunizations Immunizations are current?: Yes - POLST Patient has POLST: No POLST Status: Full Code PD ED PE NORMAL - Vitals Vital signs reviewed: Yes - General General: Alert and oriented X 3, No acute distress, Well developed/nourished - Abdomen Abdomen: Other (G tube in place, with some leaking fluid around it. No signs of infection of the skin. ) - Derm Derm: Normal color, Warm and dry Results - Vitals Vitals: Vital Signs - 24 hr 03/14/19 07:26 Temperature 36.6 C Heart Rate 61 Respiratory 19 Rate Blood Pressure 106/70 O2 Saturation 99 Oxygen O2 Source Room air Procedures - General procedure General procedure: G tube replaced without problems. Skin prepped with service cleaner. Draped. Balloon deflated but only 2 ml out, so balloon was not holding fluid, and old one removed, and then new one placed in easily. Ballon inflated. Gastric fluids drain from it easily. No leaking around. PD MEDICAL DECISION MAKING - ED course Complexity details: considered differential (g tube needs replacing as not working and is leaking around it. ) Departure - Departure Disposition: 01 Home, Self Care Clinical Impression: Feeding tube dysfunction Qualifiers: Encounter type: initial encounter Qualified Code(s): T85.598A - Other mechanical complication of other gastrointestinal prosthetic devices, implants and grafts, initial encounter Condition: Stable Record reviewed to determine appropriate education?: Yes Comments: Continue usual care and feedings with the tube. Discharge Date/Time: 03/14/19 08:40
[2019-03-14 07:50] VITALS: BP 106/70
== END 2019-03-14 08:40 | disposition home or self-care (01) ==
LOC: ED 07:15
DX: T85.598A Other mechanical complication of other gastrointestinal prosthetic devices, implants and grafts, initial encounter (principal); F17.200 Nicotine dependence, unspecified, uncomplicated
CPT/HCPCS: 43762

== ENCOUNTER 2019-04-29 06:21 | Day surgery (SDC) | payer MEDICAID ==
[2019-04-29] MEDS ORDERED: fentaNYL 250 MCG/5 ML VIAL IVP ONE (06:22)
[2019-04-29] MEDS ORDERED: MIDAZOLAM 2 MG/2 ML VIAL IVP ONE (06:22)
[2019-04-29] MEDS ORDERED: LACTATED RINGERS 1,000 ML IV ONE ×2 (07:01→08:34)
[2019-04-29] MEDS ORDERED: LIDO GARGLE 30 ML BOTTLE ONE (07:16)
[2019-04-29] MEDS ORDERED: LIDO GARGLE 30 ML BOTTLE PO ONE (08:24)
[2019-04-29] MEDS ORDERED: BENZOCAINE/TETRACAINE/BUTAMBEN 20 GM TOP ONE (08:24)
[2019-04-29 09:19] VITALS: BP 85/59
== END 2019-04-29 06:22 | disposition home or self-care (01) ==
LOC: SDS 06:21
PROVIDERS: ATTEND Surgery
PROC: 0DJ08ZZ Inspection of Upper Intestinal Tract, Via Natural or Artificial Opening Endoscopic (ICD-10-PCS; principal; 2019-04-29 08:15)
DX: K22.0 Achalasia of cardia (principal); K29.80 Duodenitis without bleeding; F17.290 Nicotine dependence, other tobacco product, uncomplicated; Z93.1 Gastrostomy status
CPT/HCPCS: 43235; A9270; J3010; J7120

== ENCOUNTER 2019-05-15 15:54 | Emergency (ER) | payer MEDICAID ==
[2019-05-15 15:59] VITALS: BP 120/72
--- NOTE | 2019-05-15 16:25 | ED Physician Documentation ---
PD HPI ABD PAIN - Stated complaint Stated Complaint: MALE - Chief complaint Chief Complaint: Abd Pain - History obtained from History obtained from: Patient - History of Present Illness Timing - onset: Today Timing - duration: Hours Timing - details: Abrupt onset, Still present Quality: Sharp, Pain Location: LLQ Improved by: Laying still Worsened by: Moving, Position, Palpation Associated symptoms: Nausea. No: Vomiting, Diarrhea, Constipation Similar symptoms before: Diagnosis (inguinal hernia) Recently seen: Emergency Dept - Additional information Additional information: 54-year-old male with a history of esophageal dysmotility who has a PEG tube in place has developed some left lower quadrant abdominal pain associated with a mass that he states he was able to push back in a week ago and today he is not able to push it back and secondary to excessive pain when he attempts to do this. He states that he has changed his bowel program and is added some fiber into his diet and he has been constipated for 2 days. He has been straining at the toilet. Review of Systems Constitutional: denies: Fever Ears: denies: Ear pain Nose: denies: Congestion Throat: denies: Sore throat Respiratory: denies: Cough GI: reports: Abdominal Pain, Nausea, Constipation. denies: Vomiting, Diarrhea : denies: Dysuria, Frequency PD PAST MEDICAL HISTORY - Past Medical History Cardiovascular: None Respiratory: None Neuro: None, Head injury Endocrine/Autoimmune: None GI: GERD, GI bleed, Ulcers, Other : None HEENT: None Psych: None Musculoskeletal: Other Derm: None - Past Surgical History Past Surgical History: Yes General: Appendectomy, EGD Ortho: Other - Present Medications Home Medications: Ambulatory Orders Medication Instructions Recorded Confirmed Jevity 8 bottle PEG DAILY 02/04/18 03/09/18 Potassium Chloride in 0.9%NaCl 7.5 ml .ROUTE BID 04/29/19 04/29/19 [KCl 40 Meq-Ns 1,000 ml IV Soln] - Allergies Allergies/Adverse Reactions: Allergies Allergy/AdvReac Type Severity Reaction Status Date / Time No Known Drug Allergies Allergy Verified 05/15/19 15:59 - Social History Does the pt smoke?: No Smoking Status: Never smoker Does the pt drink ETOH?: No Does the pt have substance abuse?: No - Immunizations Immunizations are current?: Yes - POLST Patient has POLST: No POLST Status: Full Code PD ED PE NORMAL - Vitals Vital signs reviewed: Yes (normal ) - General General: Alert and oriented X 3, No acute distress, Well developed/nourished - HEENT HEENT: Atraumatic, PERRL, EOMI - Respiratory Respiratory: No respiratory distress - Abdomen Abdomen: Soft, Other (There is a left inguinal hernia that is protruding. The patient is placed in Trendelenburg and with gentle circumferential pressure of the hernia easily reduces. With relief of the patient's pain.) - Back Back: No CVA TTP, No spinal TTP - Derm Derm: Normal color, Warm and dry, No rash - Extremities Extremities: No deformity, No edema - Neuro Neuro: Alert and oriented X 3, technical manager 2-12 intact, No motor deficit, No sensory deficit, Normal speech Eye Opening: Spontaneous Motor: Obeys Commands Verbal: Oriented GCS Score: 15 - Psych Psych: Normal mood, Normal affect Results - Vitals Vitals: Vital Signs - 24 hr 05/15/19 15:57 Temperature 36.8 C Heart Rate 72 Respiratory 20 Rate Blood Pressure 120/72 O2 Saturation 99 Oxygen O2 Source Room air PD MEDICAL DECISION MAKING - ED course Complexity details: re-evaluated patient, considered differential, d/w patient ED course: 54-year-old male with a left inguinal hernia that is easily reducible has had some issue recently with constipation and extra straining. He will add in some laxative to his regimen as he has had a supplement he uses that has helped with loosening his stool previously he will switch his fiber preparation to MiraLAX from [employer]. I have referred the patient back to the surgeon for evaluation. Departure - Departure Disposition: 01 Home, Self Care Clinical Impression: Inguinal hernia Qualifiers: Obstruction and gangrene presence: without obstruction or gangrene Laterality: unilateral Recurrence: recurrent Qualified Code(s): K40.91 - Unilateral inguinal hernia, without obstruction or gangrene, recurrent Condition: Stable Instructions: ED Hernia Inguinal Follow-Up: vEerton Najera PA-C [Primary Care Provider] - Nilton Frost MD [Provider Admit Priv/Credential] -
== END 2019-05-15 16:34 | disposition home or self-care (01) ==
LOC: ED 15:54
DX: K40.91 Unilateral inguinal hernia, without obstruction or gangrene, recurrent (principal); Z93.1 Gastrostomy status
CPT/HCPCS: 99281; 99284

== ENCOUNTER 2019-07-02 06:09 | Day surgery (SDC) | payer MEDICAID ==
[2019-07-02] MEDS ORDERED: KETOROLAC 30 MG/ML VIAL IVP ONE (06:10)
[2019-07-02] MEDS ORDERED: GLYCOPYRROLATE 1 MG/5 ML VIAL IVP ONE (06:10)
[2019-07-02] MEDS ORDERED: DEXAMETHASONE 4 MG/ML VIAL IVP ONE (06:10)
[2019-07-02] MEDS ORDERED: fentaNYL 100 MCG/2 ML VIAL IVP ONE (06:10)
[2019-07-02] MEDS ORDERED: LIDOCAINE 2% 10 ML MDV SUBQ ONE (06:10)
[2019-07-02] MEDS ORDERED: MIDAZOLAM 2 MG/2 ML VIAL IVP ONE (06:10)
[2019-07-02] MEDS ORDERED: NEOSTIGMINE 1 MG/1 ML 10 ML MDV IVP ONE (06:10)
[2019-07-02] MEDS ORDERED: ROCURONIUM 50 MG/5 ML VIAL IVP ONE (06:10)
[2019-07-02] MEDS ORDERED: PROPOFOL 200 MG/20 ML VIAL IVP ONE (06:10)
[2019-07-02] MEDS ORDERED: CEFAZOLIN SODIUM IN 0.9 % NACL 2 GM/100 ML BAG IV ONE (06:20)
[2019-07-02] MEDS ORDERED: ENOXAPARIN 30 MG/0.3 ML SYRINGE SUBQ ONE (06:20)
[2019-07-02] MEDS ORDERED: LACTATED RINGERS 1,000 ML IV ONE (06:36)
[2019-07-02] MEDS ORDERED: BUPIVACAINE 0.5% PF 30 ML VIAL ONE (06:53)
[2019-07-02] MEDS ORDERED: ceFAZolin 1 GM VIAL ONE (06:53)
--- NOTE | 2019-07-02 07:15 | ANESTHESIA ---
Pre-Anesthesia VS, & Labs - Diagnosis inguinal hernia @L , need for PEG exchange - Procedure L inguinal hernia repair, PEG exchange Vital Signs: Temp Pulse Resp BP Pulse Ox 36.9 C 63 18 94/63 98 07/02/19 06:36 07/02/19 06:36 07/02/19 06:36 07/02/19 06:36 07/02/19 06:36 Height 5 ft 8 in Weight (kg) 65.1 kg Body Mass Index 20.9 - NPO >8 hours Home Medications and Allergies Jevity 8 bottle PEG DAILY 02/04/18 Potassium Chloride in 0.9%NaCl [KCl 40 Meq-Ns 1,000 ml IV Soln] 7.5 ml .ROUTE BID 04/29/19 Allergies/Adverse Reactions: Allergies Allergy/AdvReac Type Severity Reaction Status Date / Time No Known Drug Allergies Allergy Verified 07/02/19 06:48 Anes History & Medical History - Anesthetic History Anesthesia Complications: reports: No previous complications Family history of Anesthesia Complications: Denies Family history of Malignant Hyperthermia: Denies - Medical History Cardiovascular: reports: None Pulmonary: reports: None Gastrointestinal: reports: GERD, GI bleed, Ulcers, Other Urinary: reports: None Neuro: reports: None, Head injury Musculoskeletal: reports: None Endocrine/Autoimmune: reports: None Blood Disorders: reports: Anemia Skin: reports: None Smoking Status: Never smoker - Surgical History General: Appendectomy, EGD Orthopedic: Other Exam General: Alert, Oriented x3, Cooperative Dental: WNL Mouth Openin Fingerbreadth Neck Mobility: Normal Mallampati classification: II Thyromental Distance: greater than 6 cm Respiratory: Lungs clear, Normal breath sounds Cardiovascular: Regular rate Neurological: Normal speech, Strength at 5/5 X4 ext Mental/Cognitive Status: Alert/Oriented X3, Normal for patient Cognitive Status: Within normal limits Plan Anesthesia Type: General Consent for Procedure(s) Verified and Reviewed: Yes Code Status: Attempt Resuscitation ASA classification: 2-Mild systemic disease Is this case an emergency?: No
[2019-07-02] MEDS ORDERED: ceFAZolin 1 GM VIAL IR ONE (08:28)
[2019-07-02] MEDS ORDERED: BUPIVACAINE 0.5% PF 30 ML VIAL SUBQ ONE ×3 (08:28)
--- NOTE | 2019-07-02 09:57 | IMMEDIATE POSTOPERATIVE NOTE ---
Immediate Postoperative Note - Procedure Note Procedure Date: 07/02/19 Pre-Op Diagnosis: 1. LIH 2. G tube needing change Procedure: 1. LIH repair w/mesh patch 2. Change G tube 3. Excision cord lipoma Post-Op Diagnosis: Same Primary Surgeon: Remebrto Anesthesia Type: General ET tube, Local Findings: 1. Cord lipoma 2. Indirect sac 3. G tube needing change Complications: No complications Estimated Blood Loss (in cc): 3 Plan of Care: See order set
[2019-07-02] MEDS ORDERED: ONDANSETRON 4 MG/2 ML VIAL IVP PRN (09:58)
[2019-07-02] MEDS ORDERED: oxyCODONE 5 MG TABLET PO PRN (09:58)
[2019-07-02] MEDS ORDERED: ACETAMINOPHEN 325 MG TABLET PO PRN (09:58)
[2019-07-02] MEDS ORDERED: IBUPROFEN 600 MG TABLET PO PRN (09:58)
[2019-07-02] MEDS ORDERED: ACETAMINOPHEN 1,000 MG/100 ML 100 ML IV ONE (10:06)
[2019-07-02] MEDS ORDERED: HYDROmorphone 0.5 MG/0.5 ML SYRINGE ONE (10:21)
[2019-07-02] MEDS ORDERED: oxyCODONE 10 MG/0.5 ML SYRINGE ONE (11:20)
[2019-07-02 11:33] VITALS: BP 115/63
--- NOTE | 2019-07-02 15:46 | OPERATIVE REPORT ---
DATE OF SERVICE: 07/02/2019 Physician: Rivas Sr DO PREOPERATIVE DIAGNOSES 1. Left inguinal hernia. 2. Gastrostomy tube needing change. POSTOPERATIVE DIAGNOSES 1. Left inguinal hernia. 2. Gastrostomy tube needing change. 3. A significant left inguinal cord lipoma. PROCEDURE PERFORMED 1. Left inguinal hernia repair with implantation of mesh patch. 2. Excision of cord lipoma. 3. Change out indwelling gastrostomy tube. SURGEON: Rivas Sr DO CLIENT REPORTING ASSOCIATE: Wilson MAI TYPE OF ANESTHESIA: General endotracheal tube with local assist. ESTIMATED BLOOD LOSS: Minimal, 3 mL. FINDINGS 1. Left indirect sac. 2. Cord lipoma. 3. Indwelling G-tube. COMPLICATIONS: None. CONDITION: Stable upon transport to recovery. HISTORY: The patient is a 54-year-old white male with the left inguinal hernia and an indwelling chr onic G-tube needing changeout. DESCRIPTION OF PROCEDURE: The patient was taken to the operating room and under the above-mentioned anesthetic, prepped and draped in the usual sterile manner. A left inguinal incision between the lef t anterior superior iliac spine and the left pubic tubercle was made and carried down through the ski n and subcutaneous tissues until the external oblique aponeurosis was identified. The aponeurosis wa s then incised through the external ring and the medial and lateral edges mobilized. The underlying spermatic cord and cord lipoma were identified and the excess cremasteric muscle excised. Subsequent ly, the cord was encircled in a Keyes drain and the cord lipoma and hernia sac, both separately dis sected down to the internal ring where the cord lipoma was then clamped, divided, and suture ligated with 2-0 silk. The hernia sac was twisted down to its base at the internal ring where it was then lopez ture ligated and the excess sac trimmed. At this time, the onlay keyhole mesh patch was secured to C ooper's ligament with a horizontal mattress suture of 2-0 Prolene, and these sutures were likewise co ntinued laterally along the shelving portion of Poupart's ligament and medially along the internal ob lique fascia. The cord was placed within the keyhole and the mesh tacked to each other, and then ann n to the floor of the inguinal canal, again with 2-0 Prolene. Once a correct sponge and needle count was reported and there was no sign of any bleeding, the patient was prepared for closure. The exter nal oblique aponeurosis was reapproximated with a running 2-0 Vicryl, Woody's fascia was approximate d with inverted interrupted 3-0 Vicryl and the skin margins joined with running undyed subcuticular 4 -0 Monocryl, Dermabond over that. Once the Dermabond had dried, the gastrostomy tube was removed and the new gastrostomy tube placed and secured in the standard manner with a saline balloon. The patie nt was then transported to recovery in stable condition. TD: 07/02/2019 10:07
== END 2019-07-02 06:10 | disposition home or self-care (01) ==
LOC: SDS 06:09
PROVIDERS: ATTEND Surgery
PROC: 0YU60JZ Supplement Left Inguinal Region with Synthetic Substitute, Open Approach (ICD-10-PCS; principal; 2019-07-02 07:30)
PROC: 0D20XUZ Change Feeding Device in Upper Intestinal Tract, External Approach (ICD-10-PCS; 2019-07-02 07:30)
DX: K40.91 Unilateral inguinal hernia, without obstruction or gangrene, recurrent (principal); Z43.1 Encounter for attention to gastrostomy; D17.6 Benign lipomatous neoplasm of spermatic cord; K22.4 Dyskinesia of esophagus; F17.290 Nicotine dependence, other tobacco product, uncomplicated
CPT/HCPCS: 43762; 49505; A9270; C1781; J0131; J0690; J1170; J1650; J7120

== ENCOUNTER 2019-12-22 14:23 | Outpatient (CLI) | payer MEDICARE, MEDICAID ==
[2019-12-22 18:32] LABS: BASOPHILS # (AUTO) 0.1 10^3/uL (0.0-0.1); BASOPHILS % (AUTO) 0.8 %; EOSINOPHILS # (AUTO) 0.2 10^3/uL (0.0-0.7); EOSINOPHILS % (AUTO) 1.9 %; HGB - HEMOGLOBIN 14.4 g/dL (14.0-18.0); LYMPHOCYTES # (AUTO) 2.4 10^3/uL (1.5-3.5); LYMPHOCYTES % (AUTO) 22.8 %; MEAN CORPUSCULAR HEMOGLOBIN 30.8 pg (27.0-31.0); MEAN CORPUSCULAR HGB CONC 32.7 g/dL (32.0-36.0); MEAN CORPUSCULAR VOLUME 94.2 fL (80.0-94.0); MEAN PLATELET VOLUME 11.4 fL (7.4-11.4); MONOCYTES # (AUTO) 0.9 10^3/uL (0.0-1.0); MONOCYTES % (AUTO) 8.2 %; NEUTROPHILS # (AUTO) 6.9 10^3/uL (1.5-6.6); PLT - PLATELET COUNT 224 10^3/uL (130-450); RED BLOOD COUNT 4.67 10^6/uL (4.70-6.10); RED CELL DISTRIBUTION WIDTH 12.9 % (12.0-15.0); WHITE BLOOD COUNT 10.5 x10^3/uL (4.8-10.8)
[2019-12-22 18:52] LABS: ALBUMIN 3.7 g/dL (3.2-5.5); ALBUMIN/GLOBULIN RATIO 0.9 (1.0-2.2); BILIRUBIN,TOTAL 0.3 mg/dL (0.2-1.0); CALCIUM 9.3 mg/dL (8.5-10.3); CREATININE 0.6 mg/dL (0.6-1.2); TOTAL PROTEIN 7.8 g/dL (6.7-8.2)
== END 2019-12-22 14:24 | disposition home or self-care (01) ==
LOC: LAB.WCP 14:23
PROVIDERS: ATTEND Family Medicine
DX: K22.4 Dyskinesia of esophagus (principal)
CPT/HCPCS: 36415; 80053; 84443; 85025

== ENCOUNTER 2020-08-09 08:00 | Outpatient (CLI) | payer MEDICARE, MEDICAID ==
[2020-08-09 11:50] LABS: CALCIUM 9.5 mg/dL (8.5-10.3); CREATININE 0.7 mg/dL (0.6-1.2)
== END 2020-08-09 23:59 | disposition home or self-care (01) ==
LOC: LAB.WCP 08:00
PROVIDERS: ATTEND Family Medicine
DX: E87.6 Hypokalemia (principal); Z73.6 Limitation of activities due to disability; K31.1 Adult hypertrophic pyloric stenosis
CPT/HCPCS: 36415; 80048

== ENCOUNTER 2020-10-10 15:00 | Outpatient (CLI) | payer MEDICARE, MEDICAID | END 2020-10-10 15:01 | disposition home or self-care (01) | LOC: COV 15:00 | PROVIDERS: ATTEND Surgery | DX: Z01.812 Encounter for preprocedural laboratory examination (principal); Z86.010 Personal history of colon polyps; K26.9 Duodenal ulcer, unspecified as acute or chronic, without hemorrhage or perforation; Z20.822 Contact with and (suspected) exposure to COVID-19 ==

== ENCOUNTER 2020-10-13 06:24 | Day surgery (SDC) | payer MEDICAID, MEDICARE ==
--- NOTE | 2020-10-13 07:22 | HISTORY & PHYSICAL EXAMINATION ---
Chief Complaint - Chief Complaint Chief Complaint: trouble swallowing, hx pud History of Present Illness - History Obtained From Records Reviewed: yes History obtained from: pt Exam Limitations: none - History of Present Illness HPI Comment/Other: History of peptic ulcer disease and surgery. History of severe esophageal dysmotility requiring feeding tube. He has seen Gi specialists. History - Past Medical History Cardiovascular: reports: None Respiratory: reports: None Neuro: reports: None, Head injury Endocrine/Autoimmune: reports: None GI: reports: Other : reports: Other HEENT: reports: None Psych: reports: None Musculoskeletal: reports: None Derm: reports: None MRSA Hx?: No - Past Surgical History General: reports: Appendectomy, Hiatal hernia repair, Other Ortho: reports: Other - Family & Social History Family History: Mother: CVA/TIA, Diabetes, Type 2, [place], Sister: Obesity Social History Notes: The patient lives in [place] with his . He and his have been for 34 years. The patient is originally from [place] but moved to [facility] at the age of 14 and met his at the age of 17 and they have been together ever since. The patient has 1 biological daughter who lives just down the street. The patient was a former smoker and smoked in his 30s, he was never a heavy smoker and quit many years ago. He states he does smoke cigars now and again. He denies any alcohol use or illicit drug use. - POLST Patient has POLST: No POLST Status: Full Code Meds/Allgy - Home Medications Home Medications: Ambulatory Orders Medication Instructions Recorded Confirmed Jevity 8 bottle PEG DAILY 02/04/18 10/13/20 Potassium Chloride in 0.9%NaCl 7.5 ml .ROUTE BID 04/29/19 10/13/20 [KCl 40 Meq-Ns 1,000 ml IV Soln] - Allergies Allergies/Adverse Reactions: Allergies Allergy/AdvReac Type Severity Reaction Status Date / Time No Known Drug Allergies Allergy Verified 07/02/19 06:48 Review of Systems - Other Findings Other Findings: 10 pt ros as above otherwise unremarkable Exam - Vital Signs Reviewed Vital Signs: Yes Vital Signs: Vital Signs x48h Temp Pulse Resp BP Pulse Ox 10/13/20 06:30 36.5 C 57 L 16 105/81 H 97 - Physical Exam General Appearance: positive: No acute distress, Alert Eyes Bilateral: positive: Normal inspection, PERRL, EOMI ENT: positive: No signs of dehydration Neck: positive: No JVD, Trachea midline Respiratory: positive: No respiratory distress Cardiovascular: positive: Regular rate & rhythm Abdomen: positive: Non-tender, No distention Neurologic/Psychiatric: positive: Oriented x3 Conclusion/Plan - Problem List (1) Dysphagia Conclusion/Plan: plan EGD. parq held and consent obtained Qualifiers: Dysphagia type: esophageal phase Qualified Code(s): R13.10 - Dysphagia, unspecified
[2020-10-13] MEDS ORDERED: LIDO GARGLE 30 ML BOTTLE ONE (07:30)
[2020-10-13] MEDS ORDERED: MIDAZOLAM 2 MG/2 ML VIAL ONE (07:37)
[2020-10-13] MEDS ORDERED: fentaNYL 100 MCG/2 ML VIAL ONE ×2 (07:37→08:02)
[2020-10-13] MEDS ORDERED: LIDO GARGLE 30 ML BOTTLE TOP ONE (07:49)
[2020-10-13] MEDS ORDERED: BENZOCAINE/TETRACAINE/BUTAMBEN 20 GM TOP ONE (07:50)
[2020-10-13 08:17] VITALS: BP 108/74
== END 2020-10-13 06:25 | disposition home or self-care (01) ==
LOC: SDS 06:24
PROVIDERS: ATTEND Surgery
PROC: 0DB78ZX Excision of Stomach, Pylorus, Via Natural or Artificial Opening Endoscopic, Diagnostic (ICD-10-PCS; 2020-10-13)
PROC: 0DB28ZX Excision of Middle Esophagus, Via Natural or Artificial Opening Endoscopic, Diagnostic (ICD-10-PCS; 2020-10-13)
PROC: 0DB38ZX Excision of Lower Esophagus, Via Natural or Artificial Opening Endoscopic, Diagnostic (ICD-10-PCS; 2020-10-13)
PROC: 0DB48ZX Excision of Esophagogastric Junction, Via Natural or Artificial Opening Endoscopic, Diagnostic (ICD-10-PCS; 2020-10-13)
PROC: 0DB98ZX Excision of Duodenum, Via Natural or Artificial Opening Endoscopic, Diagnostic (ICD-10-PCS; principal; 2020-10-13 07:30)
DX: R13.10 Dysphagia, unspecified (principal); K22.10 Ulcer of esophagus without bleeding; Z87.11 Personal history of peptic ulcer disease; K29.80 Duodenitis without bleeding; K29.50 Unspecified chronic gastritis without bleeding; B37.81 Candidal esophagitis; F17.290 Nicotine dependence, other tobacco product, uncomplicated
CPT/HCPCS: 43239; A9270

== ENCOUNTER 2020-11-14 05:12 | Emergency (ER) | payer MEDICARE ==
[2020-11-14 05:26] VITALS: BP 118/74
--- NOTE | 2020-11-14 05:34 | ED Physician Documentation ---
PD HPI SKIN - Stated complaint Stated Complaint: NECK SPIDER BITE - Chief complaint Chief Complaint: Wound - History obtained from History obtained from: Patient - History of Present Illness Timing - onset: How many days ago (2-3) Timing - duration: Days (2-3) Timing - details: Abrupt onset, Still present Location: Face, Neck (left side of neck) Quality / character: Painful, Discolored (red, with some local breakdown of skin. He thought was likely spider bite on first site of neck, but now developin g another site left side of face. Painful in the areas.). No: Draining Similar symptoms before: Has not had sx before Review of Systems Constitutional: denies: Fever, Chills, Myalgias Nose: denies: Rhinorrhea / runny nose, Congestion Throat: denies: Sore throat Respiratory: denies: Cough Skin: reports: Lesions (just the two so far) Neurologic: denies: Generalized weakness, Near syncope, Headache PD PAST MEDICAL HISTORY - Past Medical History Cardiovascular: None Respiratory: None Neuro: None, Head injury Endocrine/Autoimmune: None GI: Other (prior esophageal problems, and gets all intake by G tube. ) : Other HEENT: None Psych: None Musculoskeletal: None Derm: None - Past Surgical History Past Surgical History: Yes General: Appendectomy, Hiatal hernia repair, Other Ortho: Other - Present Medications Home Medications: Ambulatory Orders Medication Instructions Recorded Confirmed Jevity 8 bottle PEG DAILY 02/04/18 10/13/20 Potassium Chloride in 0.9%NaCl 7.5 ml .ROUTE BID 04/29/19 10/13/20 [KCl 40 Meq-Ns 1,000 ml IV Soln] Chlorhexidine Gluconate [Hibiclens] 15 ml TP DAILY #236 ml 11/14/20 Hydrocodone/Acetaminophen 10 ml GT Q6H PRN #120 ml 11/14/20 [Hydrocodone-Acetamn 7.5-325/15] Mupirocin Calcium [Mupirocin] 1 applic TP TID #15 gm 11/14/20 Sulfamethox/Trimet 200/40 Susp 20 ml PO BID 7 Days #280 ml 11/14/20 [Bactrim Susp] - Allergies Allergies/Adverse Reactions: Allergies Allergy/AdvReac Type Severity Reaction Status Date / Time No Known Drug Allergies Allergy Verified 11/14/20 05:27 - Social History Does the pt smoke?: No Smoking Status: Never smoker Does the pt drink ETOH?: No Does the pt have substance abuse?: No - Immunizations Immunizations are current?: Yes - POLST Patient has POLST: No POLST Status: Full Code PD ED PE NORMAL - Vitals Vital signs reviewed: Yes - General General: Alert and oriented X 3, Well developed/nourished - HEENT HEENT: Other (Left side of neck with area of skin mild ulceration with surrounding redness and induration but no fluctuance. Does not extend deeply. Similar on left side of face. Each about 2-3 mm size with about 1-2 cm area of redness around. ) - Cardiac Cardiac: RRR, No murmur - Respiratory Respiratory: Clear bilaterally Results - Vitals Vitals: Vital Signs - 24 hr 11/14/20 05:20 Temperature 36.1 C L Heart Rate 66 Respiratory 22 Rate Blood Pressure 118/74 O2 Saturation 99 Oxygen O2 Source Room air PD MEDICAL DECISION MAKING - ED course Complexity details: considered differential (The patient feels these were spider bites but they have developed first 1 and now another day or so later. More likely superficial staph abscesses. We will treat with liquid medication per his G-tube as well as topical antibiotic and antiseptic.), d/w patient Departure - Departure Disposition: 01 Home, Self Care Clinical Impression: Infection of skin of neck Condition: Stable Record reviewed to determine appropriate education?: Yes Instructions: ED Staph Infec Abx Tx Only Prescriptions: Sulfamethox/Trimet 200/40 Susp [Bactrim Susp] 20 ml PO BID 7 Days #280 ml Chlorhexidine Gluconate [Hibiclens] 15 ml TP DAILY #236 ml Hydrocodone/Acetaminophen [Hydrocodone-Acetamn 7.5-325/15] 10 ml GT Q6H PRN #120 ml PRN Reason: Pain Mupirocin Calcium [Mupirocin] 1 applic TP TID #15 gm Comments: Cleanse the areas with soap and water and apply mupirocin topical antibiotic ointment to the areas. Bactrim liquid antibiotic as directed twice daily for 7 days. Chlorhexidine topical antiseptic body wash in the shower to reduce the chance of developing infection in other places. For the pain you can use Tylenol ibuprofen for basic pain and add hydrocodone liquid if needed for worse pain in the short-term. I would anticipate improvement over the couple of days with resolution by 3 to 5 days of most. Recheck if not improving in that timeframe
[2020-11-14] MEDS ORDERED: MUPIROCIN 2% OINT 1 GM TOP STA (05:43)
[2020-11-14] MEDS ORDERED: IBUPROFEN 100 MG/5 ML UDC PO STA (05:43)
[2020-11-14] MEDS ORDERED: SULFAMETHOX/TRIMETH 800/160 SUSP 20 ML PO STA (05:46)
== END 2020-11-14 06:09 | disposition home or self-care (01) ==
LOC: ED 05:12
DX: L08.9 Local infection of the skin and subcutaneous tissue, unspecified (principal); Z93.1 Gastrostomy status
CPT/HCPCS: 99283; 99284; A9270

== ENCOUNTER 2020-11-18 05:14 | Emergency (ER) | payer MEDICARE ==
[2020-11-18 05:29] VITALS: BP 109/67
--- NOTE | 2020-11-18 05:49 | ED Physician Documentation ---
PD HPI SKIN - Stated complaint Stated Complaint: SPIDER BITE - Chief complaint Chief Complaint: Wound - History obtained from History obtained from: Patient - History of Present Illness Timing - onset: How many weeks ago (1) Timing - duration: Weeks (1) Timing - details: Gradual onset, Still present Location: Scalp, Face, Neck, Chest Quality / character: Discolored, Swelling. 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 He developed some erythema and swelling associated with this and came into see Dr. Figueroa in the emergency department was treated appropriately with mupirocin and sulfamethoxazole trimethoprim as well as pHisoHex. The initial lesions which she has been placing the Bactroban on, have not progressed and have slightly improved. He has now developed spots on his chest and abdomen as well as in his scalp. He is concerned about continuing infection not responding to antibiotic. Review of Systems Constitutional: denies: Fever, Myalgias Ears: denies: Ear pain Nose: denies: Congestion Throat: denies: Sore throat Cardiac: denies: Chest pain / pressure Respiratory: denies: Cough GI: denies: Vomiting Skin: reports: Lesions, Bite / sting Musculoskeletal: denies: Neck pain, Back pain, Extremity pain Neurologic: denies: Generalized weakness, Focal weakness, Numbness PD PAST MEDICAL HISTORY - Past Medical History Past Medical History: Yes Cardiovascular: None Respiratory: None Neuro: None, Head injury Endocrine/Autoimmune: None GI: Other : Other HEENT: None Psych: None Musculoskeletal: None Derm: None - Past Surgical History Past Surgical History: Yes General: Appendectomy, Hiatal hernia repair, Other Ortho: Other - Present Medications Home Medications: Ambulatory Orders Medication Instructions Recorded Confirmed Jevity 8 bottle PEG DAILY 02/04/18 11/18/20 Potassium Chloride in 0.9%NaCl 7.5 ml .ROUTE BID 04/29/19 11/18/20 [KCl 40 Meq-Ns 1,000 ml IV Soln] Chlorhexidine Gluconate [Hibiclens] 15 ml TP DAILY #236 ml 11/14/20 11/18/20 Hydrocodone/Acetaminophen 10 ml GT Q6H PRN #120 ml 11/14/20 11/18/20 [Hydrocodone-Acetamn 7.5-325/15] Mupirocin Calcium [Mupirocin] 1 applic TP TID #15 gm 11/14/20 11/18/20 Sulfamethox/Trimet 200/40 Susp 20 ml PO BID 7 Days #280 ml 11/14/20 11/18/20 [Bactrim Susp] Amoxicillin/Potassium Clav 800 mg PO BID #140 ml 11/18/20 [Amox-Clav 400-57 mg/5 ml Susp] Mupirocin 1 gm TP BID #60 gm 11/18/20 - Allergies Allergies/Adverse Reactions: Allergies Allergy/AdvReac Type Severity Reaction Status Date / Time No Known Drug Allergies Allergy Verified 11/18/20 05:29 - Social History Does the pt smoke?: No Smoking Status: Never smoker Does the pt drink ETOH?: No Does the pt have substance abuse?: No - Immunizations Immunizations are current?: Yes - POLST Patient has POLST: No POLST Status: Full Code PD ED PE NORMAL - Vitals Vital signs reviewed: Yes (normal) - General General: Alert and oriented X 3, No acute distress, Well developed/nourished - HEENT HEENT: Atraumatic, PERRL, EOMI, Other (There are erythematous plaques to the face and scalp. There are 3 areas with central necrosis and no fluctuance. These appear to be healing ) - Neck Neck: Supple, no meningeal sign, No bony TTP - Respiratory Respiratory: No respiratory distress - Derm Derm: Normal color, Warm and dry, Other (over the chest and abdomen are several 1cm round erythematous plaques with a central erythema without fluctuace. ) - Neuro Neuro: Alert and oriented X 3, child protective services specialist 2-12 intact, No motor deficit, No sensory deficit, Normal speech Eye Opening: Spontaneous Motor: Obeys Commands Verbal: Oriented GCS Score: 15 - Psych Psych: Normal mood, Normal affect Results - Vitals Vitals: Vital Signs - 24 hr 11/18/20 05:15 Temperature 36.5 C Heart Rate 70 Respiratory 16 Rate Blood Pressure 109/67 O2 Saturation 98 Oxygen O2 Source Room air PD MEDICAL DECISION MAKING - ED course Complexity details: reviewed old records, considered differential, d/w patient ED course: 55-year-old male with a history of achalasia who has a PEG tube in place has developed a skin infection similar to impetigo and this has improved on areas that he is using the Bactroban and additional infection appears to have taken place elsewhere. To me this suggests that the sulfamethoxazole trimethoprim is ineffective. I attempted to give the patient dose of clindamycin and found that we had no oral solution that would be suitable. I subsequently changed to Augmentin and he is given a dose here in the emergency department and I have refilled his prescription for Bactroban and asked the patient to put the is on all of his lesions. Departure - Departure Disposition: 01 Home, Self Care Clinical Impression: Skin infection, bacterial Condition: Stable Instructions: ED Staph Infec Abx Tx Only Prescriptions: Amoxicillin/Potassium Clav [Amox-Clav 400-57 mg/5 ml Susp] 800 mg PO BID #140 ml Mupirocin 1 gm TP BID #60 gm
[2020-11-18] MEDS ORDERED: AMOX/CLAV 200 MG/28.5 MG/5 ML SYRINGE PO STA (05:56)
== END 2020-11-18 06:22 | disposition home or self-care (01) ==
LOC: ED 05:14
DX: L08.9 Local infection of the skin and subcutaneous tissue, unspecified (principal); B96.89 Other specified bacterial agents as the cause of diseases classified elsewhere; K22.0 Achalasia of cardia; Z93.1 Gastrostomy status
CPT/HCPCS: 99282; 99284; A9270

== ENCOUNTER 2021-04-02 07:14 | Outpatient (CLI) | payer MEDICAID ==
[2021-04-02 12:31] LABS: BASOPHILS # (AUTO) 0.1 10^3/uL (0.0-0.1); BASOPHILS % (AUTO) 1.4 %; EOSINOPHILS # (AUTO) 0.3 10^3/uL (0.0-0.7); HCT - HEMATOCRIT 43.5 % (42.0-52.0); HGB - HEMOGLOBIN 14.5 g/dL (14.0-18.0); LYMPHOCYTES # (AUTO) 1.6 10^3/uL (1.5-3.5); LYMPHOCYTES % (AUTO) 37.4 %; MEAN CORPUSCULAR HEMOGLOBIN 32.6 pg (27.0-31.0); MEAN CORPUSCULAR HGB CONC 33.3 g/dL (32.0-36.0); MEAN CORPUSCULAR VOLUME 97.8 fL (80.0-94.0); MONOCYTES # (AUTO) 0.5 10^3/uL (0.0-1.0); MONOCYTES % (AUTO) 11.4 %; NEUTROPHILS # (AUTO) 1.8 10^3/uL (1.5-6.6); NEUTROPHILS % (AUTO) 43.6 %; PLT - PLATELET COUNT 189 10^3/uL (130-450); RED BLOOD COUNT 4.45 10^6/uL (4.70-6.10); WHITE BLOOD COUNT 4.1 x10^3/uL (4.8-10.8)
[2021-04-02 12:46] LABS: ALBUMIN/GLOBULIN RATIO 1.1 (1.0-2.2); ALKALINE PHOSPHATASE 65 IU/L (42-121); ALT ALANINE AMINOTRANSFERASE 24 IU/L (10-60); AST ASPARTATE AMINOTRANSFERASE 38 IU/L (10-42); BILIRUBIN,TOTAL 0.8 mg/dL (0.2-1.0); BUN - BLOOD UREA NITROGEN 20 mg/dL (6-20); CALCIUM 9.3 mg/dL (8.5-10.3); CARBON DIOXIDE - CO2 29 mmol/L (21-32); CHLORIDE 101 mmol/L (101-111); CHOL/HDL RATIO 2.7 (<5.0); CHOLESTEROL 194 mg/dL; CREATININE 0.6 mg/dL (0.6-1.2); GFR - MDRD 139 (>89); GLUCOSE 94 mg/dL (70-100); HDL CHOLESTEROL 71 mg/dL; LDL CHOLESTEROL,CALCULATED 108 mg/dL; LDL/HDL RATIO 1.5 (<3.6); POTASSIUM 5.1 mmol/L (3.5-5.0); SODIUM 140 mmol/L (135-145); TOTAL PROTEIN 7.8 g/dL (6.7-8.2); TRIGLYCERIDES 73 mg/dL; VLDL CHOLESTEROL 15 mg/dL
[2021-04-02 12:58] LABS: THYROID STIMULATING HORMONE 1.23 uIU/mL (0.34-5.60)
== END 2021-04-02 07:15 | disposition home or self-care (01) ==
LOC: LAB.N 07:14
PROVIDERS: ATTEND Family Medicine
DX: E87.6 Hypokalemia (principal); Z93.1 Gastrostomy status; K22.4 Dyskinesia of esophagus; E78.5 Hyperlipidemia, unspecified
CPT/HCPCS: 36415; 80053; 80061; 83721; 84153; 84443; 85025

== ENCOUNTER 2021-08-21 07:27 | Outpatient (CLI) | payer MEDICARE ==
[2021-08-21 12:57] LABS: ALBUMIN/GLOBULIN RATIO 1.1 (1.0-2.2); BILIRUBIN,TOTAL 0.7 mg/dL (0.2-1.0); CALCIUM 9.2 mg/dL (8.5-10.3); CREATININE 0.6 mg/dL (0.6-1.2); POTASSIUM 4.4 mmol/L (3.5-5.0); TOTAL PROTEIN 7.6 g/dL (6.7-8.2)
== END 2021-08-21 07:28 | disposition home or self-care (01) ==
LOC: LAB.N 07:27
PROVIDERS: ATTEND Family Medicine
DX: Z93.1 Gastrostomy status (principal)
CPT/HCPCS: 36415; 80053

== ENCOUNTER 2022-06-20 07:21 | Outpatient (CLI) | payer MEDICARE ==
[2022-06-20 12:22] LABS: BASOPHILS # (AUTO) 0.1 10^3/uL (0.0-0.1); BASOPHILS % (AUTO) 1.1 %; EOSINOPHILS # (AUTO) 0.1 10^3/uL (0.0-0.7); EOSINOPHILS % (AUTO) 1.4 %; HCT - HEMATOCRIT 44.4 % (42.0-52.0); HGB - HEMOGLOBIN 14.9 g/dL (14.0-18.0); LYMPHOCYTES # (AUTO) 1.2 10^3/uL (1.5-3.5); LYMPHOCYTES % (AUTO) 21.2 %; MEAN CORPUSCULAR HEMOGLOBIN 32.7 pg (27.0-31.0); MEAN CORPUSCULAR HGB CONC 33.6 g/dL (32.0-36.0); MEAN CORPUSCULAR VOLUME 97.6 fL (80.0-94.0); MEAN PLATELET VOLUME 11.1 fL (7.4-11.4); MONOCYTES # (AUTO) 0.7 10^3/uL (0.0-1.0); MONOCYTES % (AUTO) 12.7 %; NEUTROPHILS # (AUTO) 3.5 10^3/uL (1.5-6.6); NEUTROPHILS % (AUTO) 63.4 %; PLT - PLATELET COUNT 201 10^3/uL (130-450); RED BLOOD COUNT 4.55 10^6/uL (4.70-6.10); RED CELL DISTRIBUTION WIDTH 12.4 % (12.0-15.0); WHITE BLOOD COUNT 5.6 x10^3/uL (4.8-10.8)
[2022-06-20 12:53] LABS: THYROID STIMULATING HORMONE 1.42 uIU/mL (0.34-5.60)
[2022-06-20 13:03] LABS: ALBUMIN 3.6 g/dL (3.2-5.5); ALBUMIN/GLOBULIN RATIO 0.9 (1.0-2.2); ALKALINE PHOSPHATASE 83 IU/L (42-121); ALT ALANINE AMINOTRANSFERASE 51 IU/L (10-60); AST ASPARTATE AMINOTRANSFERASE 96 IU/L (10-42); BUN - BLOOD UREA NITROGEN 17 mg/dL (6-20); CALCIUM 9.5 mg/dL (8.5-10.3); CARBON DIOXIDE - CO2 28 mmol/L (21-32); CHLORIDE 102 mmol/L (101-111); CHOL/HDL RATIO 2.2 (<5.0); CHOLESTEROL 175 mg/dL; CREATININE 0.6 mg/dL (0.6-1.2); GFR - MDRD 139 (>89); GLUCOSE 101 mg/dL (70-100); HDL CHOLESTEROL 78 mg/dL; LDL CHOLESTEROL,CALCULATED 88 mg/dL; LDL/HDL RATIO 1.1 (<3.6); POTASSIUM 4.7 mmol/L (3.5-5.0); SODIUM 139 mmol/L (135-145); TOTAL PROTEIN 7.4 g/dL (6.7-8.2); TRIGLYCERIDES 47 mg/dL; VLDL CHOLESTEROL 9 mg/dL
== END 2022-06-20 07:22 | disposition home or self-care (01) ==
LOC: LAB.N 07:21
PROVIDERS: ATTEND Family Medicine
DX: K22.4 Dyskinesia of esophagus (principal); T85.598A Other mechanical complication of other gastrointestinal prosthetic devices, implants and grafts, initial encounter; Z93.1 Gastrostomy status
CPT/HCPCS: 36415; 80053; 80061; 83721; 84443; 85025

== ENCOUNTER 2023-06-20 07:57 | Outpatient (CLI) | payer MEDICARE ==
[2023-06-20 13:23] LABS: BASOPHILS # (AUTO) 0.1 10^3/uL (0.0-0.1); BASOPHILS % (AUTO) 1.2 %; EOSINOPHILS % (AUTO) 0.6 %; HCT - HEMATOCRIT 42.5 % (42.0-52.0); HGB - HEMOGLOBIN 13.9 g/dL (14.0-18.0); LYMPHOCYTES # (AUTO) 1.2 10^3/uL (1.5-3.5); LYMPHOCYTES % (AUTO) 18.2 %; MEAN CORPUSCULAR HEMOGLOBIN 33.1 pg (27.0-31.0); MEAN CORPUSCULAR HGB CONC 32.7 g/dL (32.0-36.0); MEAN CORPUSCULAR VOLUME 101.2 fL (80.0-94.0); MEAN PLATELET VOLUME 11.6 fL (7.4-11.4); MONOCYTES # (AUTO) 0.8 10^3/uL (0.0-1.0); MONOCYTES % (AUTO) 12.3 %; NEUTROPHILS # (AUTO) 4.5 10^3/uL (1.5-6.6); NEUTROPHILS % (AUTO) 67.5 %; PLT - PLATELET COUNT 162 10^3/uL (130-450); RED CELL DISTRIBUTION WIDTH 13.3 % (12.0-15.0); WHITE BLOOD COUNT 6.6 x10^3/uL (4.8-10.8)
[2023-06-20 13:40] LABS: THYROID STIMULATING HORMONE 1.46 uIU/mL (0.34-5.60)
[2023-06-20 13:42] LABS: ALBUMIN 3.4 g/dL (3.2-5.5); ALBUMIN/GLOBULIN RATIO 0.8 (1.0-2.2); ALKALINE PHOSPHATASE 119 IU/L (42-121); ALT ALANINE AMINOTRANSFERASE 42 IU/L (10-60); AST ASPARTATE AMINOTRANSFERASE 97 IU/L (10-42); BILIRUBIN,TOTAL 0.9 mg/dL (0.2-1.0); BUN - BLOOD UREA NITROGEN 14 mg/dL (6-20); CALCIUM 9.1 mg/dL (8.5-10.3); CARBON DIOXIDE - CO2 28 mmol/L (21-32); CHLORIDE 103 mmol/L (101-111); CHOL/HDL RATIO 2.2 (<5.0); CHOLESTEROL 149 mg/dL; CREATININE 0.6 mg/dL (0.6-1.3); GFR - MDRD 138 (>89); GLUCOSE 95 mg/dL (74-104); HDL CHOLESTEROL 68 mg/dL; LDL CHOLESTEROL,CALCULATED 62 mg/dL; LDL/HDL RATIO 0.9 (<3.6); POTASSIUM 4.4 mmol/L (3.5-4.5); SODIUM 137 mmol/L (135-145); TOTAL PROTEIN 7.8 g/dL (6.4-8.9); TRIGLYCERIDES 93 mg/dL (48-352); VLDL CHOLESTEROL 19 mg/dL
== END 2023-06-20 07:58 | disposition home or self-care (01) ==
LOC: LAB.N 07:57
PROVIDERS: ATTEND Family Medicine
DX: E87.6 Hypokalemia (principal); R74.01 Elevation of levels of liver transaminase levels; Z12.5 Encounter for screening for malignant neoplasm of prostate; Z93.1 Gastrostomy status; K22.4 Dyskinesia of esophagus
CPT/HCPCS: 36415; 80053; 80061; 84443; 85025; G0103; 83721; 84153

== ENCOUNTER 2023-11-29 07:51 | Emergency (ER) | payer MEDICARE ==
--- NOTE | 2023-11-29 08:06 | ED Physician Documentation ---
PD HPI UPPER EXT INJURY - Stated complaint Stated Complaint: LEFT ARM INJURY - History obtained from History obtained from: Patient - History of Present Illness Location: Left, Shoulder Type of injury: Fall (he states he fell and struck outer part of left shoulder, with pain on lifting and reaching back. Has persisted and worse the past few weeks. Has more consistent pain with less ROM even worse the past week.) Worsened by: Moving (most pain with abduction, overhead reaching, and lifting any weight in front of him. Also trying to reach back pocket.) Associated symptoms: Numbness (at times down outer part of upper arm toward elbow area. Not numb in fingers.). No: Weakness Similar symptoms before: Has not had sx before Review of Systems Skin: denies: Rash, Lesions PD PAST MEDICAL HISTORY - Past Medical History Cardiovascular: None Respiratory: None Neuro: None, Head injury Endocrine/Autoimmune: None GI: Other : Other HEENT: None Psych: None Musculoskeletal: None Derm: None - Past Surgical History Past Surgical History: Yes General: Appendectomy, Hiatal hernia repair, Other Ortho: Other - Present Medications Home Medications: Ambulatory Orders Medication Instructions Recorded Confirmed Jevity 8 bottle PEG DAILY 02/04/18 11/29/23 Potassium Chloride in 0.9%NaCl 7.5 ml .ROUTE DAILY 04/29/19 11/29/23 [KCl 40 Meq-Ns 1,000 ml IV Soln] Acetaminophen 480 mg PO QID 8 Days #480 ml 11/29/23 Diclofenac Sodium 1% Gel [Voltaren 1 gm TOP BID #50 gm 11/29/23 Gel] prednisoLONE [Prednisolone] 30 mg PO DAILY 5 Days #50 ml 11/29/23 - Allergies Allergies/Adverse Reactions: Allergies Allergy/AdvReac Type Severity Reaction Status Date / Time No Known Drug Allergies Allergy Verified 11/29/23 08:04 - Social History Does the pt smoke?: No Smoking Status: Never smoker Does the pt drink ETOH?: No ETOH Use: Wine Does the pt have substance abuse?: No - Immunizations Immunizations are current?: Yes - POLST Patient has POLST: No POLST Status: Full Code PD ED PE NORMAL - Vitals Vital signs reviewed: Yes - General General: Alert and oriented X 3, Well developed/nourished, Other (appears in significant discomfort. Holding left shoulder guardedly. ) - Neck Neck: Supple, no meningeal sign, No bony TTP - Derm Derm: Normal color, Warm and dry - Extremities Extremities: Other (left shoulder more tender posteriorly. Not tender at AC j oint. Clavicle not tender. Passive ROM without click nor pop. Active motion against resistance painful with abduction, external rotation, internal rotation, flexion. ) - Neuro Neuro: No motor deficit, No sensory deficit Results - Vitals Vitals: Oxygen O2 Source Room air - Rads (name of study) left shoulder Relevant Findings:: Prelim report reviewed, EMP independent interpretation of test (no osseous abnormality.) PD Medical Decision Making - ED course Complexity details: considered differential (sounds likely a rotator cuf injury that has not healed and is now flared with worse tendonitis. Xray without signs of healing/healed fracture. Can try consistent NSAIDs and add sling part of the day. ), d/w patient Departure - Departure Disposition: 01 Home, Self Care Clinical Impression: Shoulder pain, acute, Left shoulder tendonitis Condition: Stable Record reviewed to determine appropriate education?: Yes Instructions: ED Tendinitis Rotator Cuff Follow-Up: Flako More MD [Primary Care Provider] - [facility] [Provider Group] Prescriptions: Acetaminophen 480 mg PO QID 8 Days #480 ml prednisoLONE [Prednisolone] 30 mg PO DAILY 5 Days #50 ml Diclofenac Sodium 1% Gel [Voltaren Gel] 1 gm TOP BID #50 gm Comments: Your x-ray does not show any signs of prior fracture nor current spurs or such. There is some arthritis in the AC joint. That does not really where you are hurting. I presume more so you have some injury of the rotator cuff tendon that is now flared up. Use the sling periodically through the day for small blocks of time to help relax the shoulder. Use the Voltaren/diclofenac anti-inflammatory rubbed topically to the shoulder area twice daily. I also prescribed a steroid anti-inflammatory to use with your feedings daily for 5 more days. In addition Tylenol 4 times daily to help with the pain. Follow-up with orthopedic clinic for other treatment options if this if this is not improving well over the next several days to week. Other considerations can be local injections, physical therapy, other medications. I sent your prescription to your preferred pharmacy, [facility]. Forms: PCP List Discharge Date/Time: 11/29/23 09:48
[2023-11-29 08:07] VITALS: O2SAT 98
[2023-11-29] MEDS: CHERRY SYRUP 10 ML UDC PO ONE (08:51)
[2023-11-29] MEDS: DEXAMETHASONE 10 MG/ML VIAL PO STA (08:51)
[2023-11-29] MEDS: IBUPROFEN 200 MG/10 ML UDC PO STA (08:51)
--- NOTE | 2023-11-29 09:19 | XRAY Report ---
PROCEDURE: Shoulder 2+V LT INDICATIONS: fall onto shoulder, continued pain TECHNIQUE: 3 views of the shoulder were acquired. COMPARISON: None. FINDINGS: Bones: No fractures or dislocations. No suspicious bony lesions. Visualized ribs appear intact. Soft tissues: No suspicious soft tissue calcifications. The visualized lungs are within normal limi ts. IMPRESSION: No acute bony abnormality. Reviewed by: Abisai Sanhcez MD on 11/29/2023 8:18 AM YAW Approved by: Abisai Sanchez MD on 11/29/2023 8:18 AM AKZARA Station ID: [id number]
[2023-11-29 09:45] VITALS: BP 138/76
== END 2023-11-29 09:48 | disposition home or self-care (01) ==
LOC: ED 07:51
DX: M19.012 Primary osteoarthritis, left shoulder (principal); M77.8 Other enthesopathies, not elsewhere classified; W18.30XA Fall on same level, unspecified, initial encounter; Y92.007 Garden or yard of unspecified non-institutional (private) residence as the place of occurrence of the external cause
CPT/HCPCS: 73030; 99283; 99284; A9270